=== PATIENT | female | born 1970 | race Caucasian/White ===

== ENCOUNTER 2017-06-04 17:58 | Inpatient (IN) | payer OTHER ==
[~2017-06-04] VITALS: Ht 162.6 cm; Wt 88.1 kg
[2017-06-04] MEDS ORDERED: HYDROmorphone 2 MG/ML VIAL IV ONE ×2 (18:30→20:00)
--- NOTE | 2017-06-04 18:40 | PHYS DOC ---
Past Medical History Past Medical History: Asthma, High Cholesterol Past Surgical History: Other Alcohol Use: None Drug Use: None Adult General Chief Complaint Chief Complaint: LOWEREXTREMITY INJURY HPI HPI Patient is a 46 year old F who presents with right ankle pain. Patient states she was stepping off a curb and twisted her ankle and had severe pain. Patient denies hitting her head with no loss of consciousness. Patient denied any other injuries or for some right hip pain. Review of Systems Review of Systems GEN: Denies fevers, chills, sweats HEENT: Denies blurred vision, sore throat CV: Denies chest pain RESP: Denies shortness of air, cough GI: Denies n/v/d NEURO: Denies confusion, dizziness MSK: Right ankle pain All other systems were reviewed and found to be within normal limits, except as documented in this note. Current Medications Current Medications Current Medications Medications (Trade) Dose Ordered Sig/Guera Start Time Stop Time Status Last Admin Dose Admin Hydromorphone HCl (Dilaudid) 1 mg 1X ONCE 06/04/17 20:00 06/04/17 20:01 DC 06/04/17 19:58 1 MG Allergies Allergies Allergies Coded Allergies Type Severity Reaction Last Updated Verified Sulfa (Sulfonamide Antibiotics) Allergy Intermediate 06/04/17 Yes codeine Allergy Intermediate "HIGH DOSE" 06/04/17 Yes doxycycline Allergy Intermediate 06/04/17 Yes tobramycin Allergy Intermediate 06/04/17 Yes amoxicillin Allergy Unknown 06/04/17 Yes clavulanic acid Allergy Unknown 06/04/17 Yes Physical Exam Physical Exam GEN.: Severe distress. Alert and oriented. HEENT: Head is normocephalic, atraumatic NECK: Supple. LUNGS: CTAB. HEART: RRR, S1, S2 present. Peripheral pulses intact ABDOMEN: Soft, nontender. Positive bowel sounds. EXTREMITIES: Without any cyanosis, tenderness palpation to left ankle with decreased range of motion secondary to pain, no stiff get swelling noted, positive dorsal pedis pulse palpated on the right, capillary refill to the toes less than 2 seconds NEUROLOGIC: Normal speech, normal tone PSYCHIATRIC: Normal affect, normal mood. SKIN: No ulcerations Current Patient Data Vital Signs Vital Signs Date Time Temp Pulse Resp B/P (MAP) Pulse Ox O2 Delivery O2 Flow Rate FiO2 06/04/17 19:58 18 99 Room Air 06/04/17 19:36 76 156/70 (98) 06/04/17 18:12 97.9 97.9 EKG EKG [] Radiology/Procedures Radiology/Procedures X-ray of the right hip and pelvis no obvious fracture X-ray of the right ankle no obvious fracture CT scan of the right ankle no obvious fracture[] Course & Med Decision Making Course & Med Decision Making Pertinent Labs and Imaging studies reviewed. (See chart for details) ED course: Patient is seen and examined emergency room upon arrival x-ray of the right ankle, pelvis and right hip were ordered Was updated on x-ray findings still having significant amount of pain therefore will order a CT scan of the ankle Patient was reexamined after CT scan showed no acute fracture, patient refuses to walk on it secondary to pain patient states every time she sits up she blacks out secondary to pain Will order a CT of the pelvis to rule out a hip fracture or pelvis fracture Discussed CC/HP/PMH with Dr. Gong and recommends admit MDM: After reviewing the chart, CC/HPI/PMH, physical exam, [lab results], [ radiological results], I do not believe the patient sustained an acute fracture to the ankle however the patient has a significant amount of pain out of proportion to physical exam findings and x-ray findings therefore will admit for further evaluation and management. [] Dragon Disclaimer Dragon Disclaimer This electronic medical record was generated, in whole or in part, using a voice recognition dictation system. Departure Departure Impression: Primary Impression: Intractable neuropathic pain of right lower extremity Disposition: ADMITTED INPATIENT Admitting Physician: Other (Dr. Gong) Condition: STABLE JOSE OLSON DO Jun 04, 2017 18:40
--- NOTE | 2017-06-04 22:11 | RAD ---
CT right large without contrast HISTORY: Right ankle pain status post fall Axial helical images were obtained of the right ankle without contrast and axial coronal and sagittal reconstruction was performed. FINDINGS: The visualized osseous structures appear normal. The tibiotalar relationship is normal. The fat within the sinus Tarsi is preserved. Major extensor tendons appear intact. IMPRESSION: No acute findings. PQRS Compliance Statement: One or more of the following individualized dose reduction techniques were utilized for this examination: 1. Automated exposure control 2. Adjustment of the mA and/or kV according to patient size 3. Use of iterative reconstruction technique Electronically signed by: Carlos Enrique Mike III, MD (06/04/2017 10:08 PM) [facility]
--- NOTE | 2017-06-04 23:45 | RAD ---
Three views ANKLE RIGHT 3V Clinical History: fall, rt sided hip and ankle pain, please read per ER Comparison: None. Findings: The visualized osseous structures appear normal. The tibiotalar relationship is normal. Impression: No acute findings. Electronically signed by: Carlos Enrique Mike III, MD (06/04/2017 11:42 PM) [facility]
[2017-06-05] VITALS (7 sets, daily range): BP systolic 125–140; BP diastolic 69–78
[2017-06-05] MEDS ORDERED: ONDANSETRON PF 4 MG/2 ML VIAL. IV PRN
[2017-06-05] MEDS ORDERED: ACETAMINOPHEN 325 MG TABLET. PO PRN
[2017-06-05] MEDS ORDERED: fentaNYL PF VIAL 100 MCG/2 ML VIAL IV PRN
[2017-06-05] MEDS ORDERED: HALOPERIDOL LACTATE 5 MG/ML VIAL. IVP ONE (00:15)
--- NOTE | 2017-06-05 00:28 | RAD ---
CT scan of the pelvis without contrast 06/04/2017 CLINICAL HISTORY: Pelvic pain with inability to walk. TECHNIQUE: Unenhanced, contiguous, 0.625 mm axial sections were obtained through the pelvis and both hips. 3 mm reconstructed sagittal, axial and coronal images were obtained. One or more of the following individualized dose reduction techniques were utilized for this study: 1. Automated exposure control. 2. Adjustment of the mA and/or kV according to patient size. 3. Use of iterative reconstruction technique. FINDINGS: Marked rotation of the right leg and the level of the right hip is seen which could reflect subluxation of the right hip joint. Clinical correlation is recommended. No pelvic bone fracture is seen. No fracture or dislocation of either hip is noted. The urinary bladder is distended with urine. No Adnexal mass is seen. No free fluid is noted. No pelvic hematoma is seen. Degenerative changes are seen involving the facet joints of the mid and lower lumbar spine. IMPRESSION: Marked rotation of the right leg at the level of the right hip is seen which could reflect subluxation of the right hip joint. Clinical correlation is recommended. No fracture or kimberli dislocation is seen. Electronically signed by: Fabrizio Sebastian MD (06/05/2017 12:25 AM) [facility]
[2017-06-05] MEDS ORDERED: NORE1TAB76 PO (01:44)
[2017-06-05] MEDS ORDERED: FEXO1TAB31 PO (01:44)
[2017-06-05] MEDS ORDERED: RANI300T3 PO (01:44)
[2017-06-05] MEDS ORDERED: ATOR20TA58 PO (01:44)
[2017-06-05] MEDS ORDERED: PSEU120T9 PO (01:44)
[2017-06-05] MEDS ORDERED: FLUT9.9S NS (01:44)
[2017-06-05] MEDS ORDERED: PROAIR HFA8.5 GM INH (01:44)
[2017-06-05] MEDS ORDERED: CETI10TA22 PO (01:44)
[2017-06-05] MEDS ORDERED: OMEP20TA63 PO (01:44)
[2017-06-05] MEDS ORDERED: PREN1TAB58 PO (01:44)
[2017-06-05 04:29] LABS: BASO # 0.1 x10^3/uL (0.0-0.2); BASO % 1 % (0-3); EOS % 1 % (0-3); HEMATOCRIT 42.6 % (36.0-47.0); LYMPH # 3.1 x10^3/uL (1.0-4.8); LYMPH % 20 % (24-48); MEAN CORPUSCULAR HEMOGLOBIN 31 pg (25-35); MEAN CORPUSCULAR HGB CONC 33 g/dL (31-37); MEAN CORPUSCULAR VOLUME 93 fL (79-100); MONO % 7 % (0-9); NEUT % 72 % (31-73); PLATELET COUNT 505 x10^3/uL (140-400); RED BLOOD COUNT 4.58 x10^6/uL (3.50-5.40); RED CELL DISTRIBUTION WIDTH 13.4 % (11.5-14.5); WHITE BLOOD COUNT 15.8 x10^3/uL (4.0-11.0)
[2017-06-05 04:48] LABS: CALCIUM 8.8 mg/dL (8.5-10.1); CREATININE 0.6 mg/dL (0.6-1.0); GFR 106.7; POTASSIUM 3.9 mmol/L (3.5-5.1)
--- NOTE | 2017-06-05 07:35 | RAD ---
Indication: Trauma, fall on right side. Technique: 2 views of the right hip and an AP view the pelvis are submitted for review. No comparison is available. Findings: There is no fracture or dislocation. There is no joint space narrowing. Bony pelvis is intact. Included bowel gas pattern is nonobstructive. Impression: Negative for fracture.
[2017-06-05] MEDS ORDERED: diazePAM 5 MG TABLET PO ONE ×2 (14:00→18:30)
--- NOTE | 2017-06-05 14:59 | PDOC2 ---
CONSULT Date of Consult Date of Consult DATE: 06/05/17 TIME: 13:30 Reason for Consult Reason for Consult: right hip and ankle pain Referring Physician Referring Physician: Harpreet Identification/Chief Complaint Chief Complaint right hip, knee, and ankle pain Problems: Source Source: Chart review, Patient History of Present Illness Reason for Visit: The patient is a 46 year old female patient with intractable right hip, knee, and ankle pain after falling. She was walking out of the pharmacy at [facility] yesterday evening when she rolled her ankle stepping off the curb. She states her ankle went one way, her knee went one way, and her hip went the other causing her to fall. Since the fall she has not been able to bear any weight on the right lower extremity due to pain. Attempted motion of the hip and ankle aggravate the pain. Holding the leg externally rotated with the knee flexed feels best. She has a history of fibromyalgia for which she takes Tylenol. She states she cannot take NSAIDs due to side effects. She states she has been taking omeprazole and zantac for acid reflux and nausea when eating, but missed her recent appointment with her councilperson. Past Medical History Cardiovascular: Hyperlipidemia Pulmonary: Asthma, Other (TG) GI: GERD Musculoskeletal: Other (fibromyalgia ) ENT: Other (seasonal allergies) Past Surgical History Past Surgical History: Other (splenectomy ) Family History Family History: Cancer, Diabetes, Heart Disease Social History No ALCOHOL: none Drugs: None Lives: with Family Current Problem List Problem List Problems Medical Problems: (1) Intractable neuropathic pain of right lower extremity Status: Acute Current Medications Current Medications Current Medications Hydromorphone HCl (Dilaudid) 1 mg 1X ONCE IV Last administered on 06/04/17 18:36; Start 06/04/17 at 18:30; Stop 06/04/17 at 18:32; Status DC Hydromorphone HCl (Dilaudid) 1 mg 1X ONCE IV Last administered on 06/04/17 19:58; Start 06/04/17 at 20:00; Stop 06/04/17 at 20:01; Status DC Haloperidol Lactate (Haldol) 5 mg 1X ONCE IVP Last administered on 06/05/17 00:39; Start 06/05/17 at 00:15; Stop 06/05/17 at 00:16; Status DC Ondansetron HCl (Zofran) 4 mg PRN Q8HRS PRN IV NAUSEA/VOMITING; Start at 00:00; Stop 06/05/17 at 23:59 Fentanyl Citrate (Fentanyl 2ml Vial) 50 mcg PRN Q1HR PRN IV PAIN; Start at 00:00; Stop 06/05/17 at 23:59 Acetaminophen (Tylenol) 650 mg PRN Q4HRS PRN PO FEVER Last administered on t 10:02; Start 06/05/17 at 00:00; Stop 06/05/17 at 23:59 Diazepam (Valium) 5 mg 1X ONCE PO ; Start 06/05/17 at 14:00; Stop 06/05/17 at 14:01; Status DC Active Scripts Active Reported Vitamins ( Vits W-Ca,Fe,Fa(<1MG)) 1 Each Tablet 1 Tab PO DAILY Sudafed 12-Hour (Pseudoephedrine Hcl) 120 Mg Tablet.er 1 Tab PO BID Atorvastatin Calcium 20 Mg Tablet 1 Tab PO DAILY Ortho-Novum (Norethindrone-Ethinyl Estrad) 1 Each Tablet 1 Tab PO DAILY Flonase Allergy Relief (Fluticasone Propionate) 9.9 Ml Kincaid.susp 2 Sprays NS DAILY Proair Hfa Inhaler (Albuterol Sulfate) 8.5 Gm Hfa.aer.ad 1 Puff INH PRN Q4HRS PRN Prilosec Otc (Omeprazole Magnesium) 20 Mg Tablet.dr 1 Tab PO DAILY Zantac (Ranitidine Hcl) 300 Mg Tablet 1 Tab PO QHS Zyrtec (Cetirizine Hcl) 10 Mg Tablet 10 Mg PO HS Jayshree-D 24 Hour Tablet (Fexofenadine/Pseudoephedrine) 1 Each Tab.er.24h 1 Tab PO DAILY Allergies Allergies: Coded Allergies: Sulfa (Sulfonamide Antibiotics) (Verified Allergy, Intermediate, 06/04/17) codeine (Verified Allergy, Intermediate, "HIGH DOSE", 06/04/17) doxycycline (Verified Allergy, Intermediate, 06/04/17) tobramycin (Verified Allergy, Intermediate, 06/04/17) amoxicillin (Verified Allergy, Unknown, 06/04/17) clavulanic acid (Verified Allergy, Unknown, 06/04/17) Physical Exam General: Alert, Oriented X3, Cooperative, No acute distress HEENT: Atraumatic, EOMI Lungs: Normal air movement Heart: Regular rate Abdomen: Soft Extremities: No clubbing, No cyanosis, No edema, Normal pulses Skin: No rashes, No breakdown, No significant lesion Neuro: Normal speech, Sensation intact Psych/Mental Status: Mental status NL, Mood NL MUSCULOSKELETAL: Other (Lying in bed with pillow under knee. She is holding the right leg in a splinted position, externally rotated with the knee flexed. The right hip is tender to palpation. Attempted motion of the hip is painful. Tenderness to palpation generally about the knee, but specifically at the proximal fibula and along the medial joint line. Attempted active and passive motion of the knee is painful. Only shows active motion from 30-60 degrees due to pain. Calf soft and nontender. There is tenderenss to palpation of the ATFL, PTFL, and CFL. Mild tenderness medially. Range of motion of ankle diminished due to pain. Inversion is especially painful. Able to wiggle toes. Dorsalis pedis pulse intact and regular. Light touch sensation intact at the toes. ) Vitals VITALS Vital Signs Date Time Temp Pulse Resp B/P (MAP) Pulse Ox O2 Delivery O2 Flow Rate FiO2 06/05/17 10:51 98.4 106 16 131/73 (92) 95 Room Air 98.4 Labs Labs Laboratory Tests Test 06/05/17 03:30 White Blood Count 15.8 x10^3/uL (4.0-11.0) Red Blood Count 4.58 x10^6/uL (3.50-5.40) Hemoglobin 14.0 g/dL (12.0-15.5) Hematocrit 42.6 % (36.0-47.0) Mean Corpuscular Volume 93 fL (79-100) Mean Corpuscular Hemoglobin 31 pg (25-35) Mean Corpuscular Hemoglobin Concent 33 g/dL (31-37) Red Cell Distribution Width 13.4 % (11.5-14.5) Platelet Count 505 x10^3/uL (140-400) Neutrophils (%) (Auto) 72 % (31-73) Lymphocytes (%) (Auto) 20 % (24-48) Monocytes (%) (Auto) 7 % (0-9) Eosinophils (%) (Auto) 1 % (0-3) Basophils (%) (Auto) 1 % (0-3) Neutrophils # (Auto) 11.3 x10^3uL (1.8-7.7) Lymphocytes # (Auto) 3.1 x10^3/uL (1.0-4.8) Monocytes # (Auto) 1.2 x10^3/uL (0.0-1.1) Eosinophils # (Auto) 0.1 x10^3/uL (0.0-0.7) Basophils # (Auto) 0.1 x10^3/uL (0.0-0.2) Sodium Level 140 mmol/L (136-145) Potassium Level 3.9 mmol/L (3.5-5.1) Chloride Level 102 mmol/L (98-107) Carbon Dioxide Level 24 mmol/L (21-32) Anion Gap 14 (6-14) Blood Urea Nitrogen 10 mg/dL (7-20) Creatinine 0.6 mg/dL (0.6-1.0) Estimated GFR (Cockcroft-Gault) 106.7 Glucose Level 113 mg/dL (70-99) Calcium Level 8.8 mg/dL (8.5-10.1) Laboratory Tests Test 06/05/17 03:30 White Blood Count 15.8 x10^3/uL (4.0-11.0) Red Blood Count 4.58 x10^6/uL (3.50-5.40) Hemoglobin 14.0 g/dL (12.0-15.5) Hematocrit 42.6 % (36.0-47.0) Mean Corpuscular Volume 93 fL (79-100) Mean Corpuscular Hemoglobin 31 pg (25-35) Mean Corpuscular Hemoglobin Concent 33 g/dL (31-37) Red Cell Distribution Width 13.4 % (11.5-14.5) Platelet Count 505 x10^3/uL (140-400) Neutrophils (%) (Auto) 72 % (31-73) Lymphocytes (%) (Auto) 20 % (24-48) Monocytes (%) (Auto) 7 % (0-9) Eosinophils (%) (Auto) 1 % (0-3) Basophils (%) (Auto) 1 % (0-3) Neutrophils # (Auto) 11.3 x10^3uL (1.8-7.7) Lymphocytes # (Auto) 3.1 x10^3/uL (1.0-4.8) Monocytes # (Auto) 1.2 x10^3/uL (0.0-1.1) Eosinophils # (Auto) 0.1 x10^3/uL (0.0-0.7) Basophils # (Auto) 0.1 x10^3/uL (0.0-0.2) Sodium Level 140 mmol/L (136-145) Potassium Level 3.9 mmol/L (3.5-5.1) Chloride Level 102 mmol/L (98-107) Carbon Dioxide Level 24 mmol/L (21-32) Anion Gap 14 (6-14) Blood Urea Nitrogen 10 mg/dL (7-20) Creatinine 0.6 mg/dL (0.6-1.0) Estimated GFR (Cockcroft-Gault) 106.7 Glucose Level 113 mg/dL (70-99) Calcium Level 8.8 mg/dL (8.5-10.1) Images Images X-rays of the hip and ankle show no fracture, dislocation, or acute bony abnormality. CT of the ankle is negative for fracture as well. CT of the pelvis was reviewed, there is a possible lucency of the femoral neck seen on series 2 image 74 and 75, suspicious for possible occult femoral neck fracture. Assessment/Plan Assessment/Plan Right hip, knee, and ankle pain after fall. The patient is a 46 year old female with intractable right hip, knee, and ankle pain after a fall. She is not able to bear weight on the right lower extremity due to pain. I will order a pelvis MRI to rule out occult femoral neck fracture. She is claustrophobic, so Valium was ordered to give 30 minutes prior to MRI. I recommended a CAM walker for the right ankle. She is having quite a bit of knee pain so I will order right knee x-rays as well. ARCADIO GOMEZ Jun 05, 2017 14:59
--- NOTE | 2017-06-05 15:30 | RAD ---
Right knee, 2 views, 06/05/2017: History: Fall, knee pain There is a nondisplaced fracture of the proximal fibular shaft. No additional knee fracture or dislocation is seen. The knee joint spaces are well preserved. No joint effusion is evident. IMPRESSION: Nondisplaced fracture of the proximal right fibula.
[2017-06-05] MEDS ORDERED: NON FORMULARY ITEM (Albuterol Sulfate (Proair Hfa Inhaler) 1 PUFF) INH PRN (16:15)
[2017-06-05] MEDS ORDERED: ALBUTEROL SULFATE 2.5 MG/3 ML NEBU. NEB PRN (16:15)
--- NOTE | 2017-06-05 16:51 | HP ---
ADMIT DATE: 06/04/2017 CHIEF COMPLAINT: Right ankle pain. HISTORY OF PRESENT ILLNESS: The patient is a 46-year-old obese woman with minor medical problems who had stepped off a curb wrong and twisted her ankle. She had excruciating pain, being unable to stand on her foot or weight bear. The entire leg hurts. She presented to the Emergency Room and was imaged with plain films of the hip and ankle, not showing any fracture, dislocation or acute bony abnormality. CT of the ankle was obtained as well, which was negative. CT of the pelvis was reviewed and has possible lucency of the femoral neck suspicious for a possible occult femoral neck fracture. Of note, hip actually not as painful as her foot. Whenever she moves her leg, main pain location is her ankle. She is now admitted for further workup and orthopedic consult. PAST MEDICAL HISTORY: Asthma, environmental allergies, hypertriglyceridemia. FAMILY HISTORY: Positive for heart disease in both parents. SOCIAL HISTORY: No toxic habits. Lives with family. ALLERGIES: SULFA, AMOXICILLIN, DOXYCYCLINE, TOBRAMYCIN, CODEINE. MEDICATIONS: MAR reconciled with home medications. REVIEW OF SYSTEMS: Positive only for excruciating pain in her leg, especially ankle. Rest of organ system review is benign with the exception of stuffy nose and sinusitis with chronic allergies. PHYSICAL EXAMINATION: VITAL SIGNS: From today show a blood pressure of 125/69, heart rate of 105, respiratory rate at 16. She is afebrile. GENERAL: This is an obese 46-year-old woman, alert and oriented, in no acute distress. HEENT: Shows no scleral icterus. NECK: Supple. LUNGS: Clear. HEART: Regular rate and rhythm. ABDOMEN: Has positive bowel sounds, soft, nontender. EXTREMITIES: Show no edema, no erythema. The ankles are symmetrical. No bruising is noted. She has excruciating pain with movement. LABORATORY DATA: CBC with a WBC of 15.8, hemoglobin 14, platelets of 505. Chemistries with a BUN and creatinine of 10 and 0.6, normal electrolytes. IMAGING STUDIES: Plain films and CTs as per HPI. ASSESSMENT AND PLAN: The patient is a 46-year-old woman with allergies/asthma, gastroesophageal reflux disease who presents with what appears to be ankle sprain. Pain is incongruent with findings. We will have Orthopedic surgery consult. Pain medications in the meantime, may benefit from ice and nonsteroidal anti-inflammatories. We will continue all her other home medications for gastroesophageal reflux disease and asthma. GLENN KARIMI MD DR: UR/nts JOB#: [id number] / [id number] JAYLENE Singh MD MTDD
[2017-06-05] MEDS: PSEUDOEPHEDRINE ER 120 MG TABLET.ER. PO SCH (22:16)
[2017-06-05] MEDS: CETIRIZINE HCL 10 MG TABLET. PO SCH (22:16)
[2017-06-05] MEDS: FAMOTIDINE 20 MG TABLET. PO SCH (22:16)
[2017-06-06 03:00] VITALS: BP 108/70
[2017-06-06] MEDS ORDERED: ACETAMINOPHEN 325 MG TABLET. PO PRN (03:00)
[2017-06-06 07:00] VITALS: BP 139/78
[2017-06-06] MEDS ORDERED: NORETHINDRONE ETHINYL ESTRAD PO SCH (09:00)
[2017-06-06] MEDS: PRENATAL MULTIVITAMIN TABLET. PO SCH (09:00)
[2017-06-06] MEDS ORDERED: NON FORMULARY ITEM (Fexofenadine/Pseudoephedrine (Allegra-D 24 Hour Tablet) 1 TAB) PO SCH (09:00)
[2017-06-06] MEDS: ATORVASTATIN CALCIUM 20 MG TABLET PO SCH (09:00)
--- NOTE | 2017-06-06 10:16 | PDOC ---
PROGRESS NOTES Chief Complaint Chief Complaint acute right leg pain, pain in hip and knee and ankle she reports tingling in her feet to me today, possible radiculupathy obesity, BMI 33 gastroesophageal reflux disease allergies, asthma History of Present Illness History of Present Illness she had MRI hip, looking for small fx, results pending, CT OK, knee xray OK right leg pain to foot with toe tingling, may be radiculopathy, may need MRI lumber spine, she has terrible claustrophobia, and is unsure if she can tolerate another MRI consult neuro surg, to follow, eval cont pain meds, try toradol, Vitals Vitals Vital Signs Date Time Temp Pulse Resp B/P (MAP) Pulse Ox O2 Delivery O2 Flow Rate FiO2 06/06/17 07:00 98.4 98 16 139/78 (98) 94 Room Air 98.4 Physical Exam General: Alert, Oriented X3, Cooperative, mild distress Heart: Regular rate, Normal S1, No murmurs Lungs: Clear Abdomen: Soft Extremities: No clubbing, No cyanosis, No edema, Normal pulses Skin: No rashes, No breakdown, No significant lesion Review of Systems Review of Systems pain, 01/29 cannot walk slept OK no n./.v/d Assessment and Plan Assessmemt and Plan Problems Medical Problems: (1) Intractable neuropathic pain of right lower extremity Status: Acute Problems: Comment Review of Relevant I have reviewed the following items dalila (where applicable) has been applied. Labs Laboratory Tests Test 06/05/17 03:30 White Blood Count 15.8 x10^3/uL (4.0-11.0) Red Blood Count 4.58 x10^6/uL (3.50-5.40) Hemoglobin 14.0 g/dL (12.0-15.5) Hematocrit 42.6 % (36.0-47.0) Mean Corpuscular Volume 93 fL (79-100) Mean Corpuscular Hemoglobin 31 pg (25-35) Mean Corpuscular Hemoglobin Concent 33 g/dL (31-37) Red Cell Distribution Width 13.4 % (11.5-14.5) Platelet Count 505 x10^3/uL (140-400) Neutrophils (%) (Auto) 72 % (31-73) Lymphocytes (%) (Auto) 20 % (24-48) Monocytes (%) (Auto) 7 % (0-9) Eosinophils (%) (Auto) 1 % (0-3) Basophils (%) (Auto) 1 % (0-3) Neutrophils # (Auto) 11.3 x10^3uL (1.8-7.7) Lymphocytes # (Auto) 3.1 x10^3/uL (1.0-4.8) Monocytes # (Auto) 1.2 x10^3/uL (0.0-1.1) Eosinophils # (Auto) 0.1 x10^3/uL (0.0-0.7) Basophils # (Auto) 0.1 x10^3/uL (0.0-0.2) Sodium Level 140 mmol/L (136-145) Potassium Level 3.9 mmol/L (3.5-5.1) Chloride Level 102 mmol/L (98-107) Carbon Dioxide Level 24 mmol/L (21-32) Anion Gap 14 (6-14) Blood Urea Nitrogen 10 mg/dL (7-20) Creatinine 0.6 mg/dL (0.6-1.0) Estimated GFR (Cockcroft-Gault) 106.7 Glucose Level 113 mg/dL (70-99) Calcium Level 8.8 mg/dL (8.5-10.1) Medications Current Medications Hydromorphone HCl (Dilaudid) 1 mg 1X ONCE IV Last administered on 06/04/17 18:36; Start 06/04/17 at 18:30; Stop 06/04/17 at 18:32; Status DC Hydromorphone HCl (Dilaudid) 1 mg 1X ONCE IV Last administered on 06/04/17 19:58; Start 06/04/17 at 20:00; Stop 06/04/17 at 20:01; Status DC Haloperidol Lactate (Haldol) 5 mg 1X ONCE IVP Last administered on 06/05/17 00:39; Start 06/05/17 at 00:15; Stop 06/05/17 at 00:16; Status DC Ondansetron HCl (Zofran) 4 mg PRN Q8HRS PRN IV NAUSEA/VOMITING; Start at 00:00; Stop 06/05/17 at 23:59; Status DC Fentanyl Citrate (Fentanyl 2ml Vial) 50 mcg PRN Q1HR PRN IV PAIN Last administered on 06/05/17 20:44; Start 06/05/17 at 00:00; Stop 06/05/17 at 23 :59; Status DC Acetaminophen (Tylenol) 650 mg PRN Q4HRS PRN PO FEVER Last administered on 10:02; Start 06/05/17 at 00:00; Stop 06/05/17 at 23:59; Status DC Diazepam (Valium) 5 mg 1X ONCE PO Last administered on 06/05/17 18:24; Start 06/05/17 at 14:00; Stop 06/05/17 at 14:01; Status DC Atorvastatin Calcium (Lipitor) 20 mg DAILY PO ; Start 06/06/17 at 09:00 Cetirizine HCl (ZyrTEC) 10 mg HS PO Last administered on 06/05/17 22:16; Start 06/05/17 at 21:00 Pseudoephedrine HCl (Sudafed 12-Hour) 120 mg BID PO Last administered on 22:16; Start 06/05/17 at 21:00 Non-Formulary Medication 1 puff PRN Q4HRS PRN INH SHORTNESS OF BREATH; Start 06/05/17 at 16:15; Status UNV Non-Formulary Medication 1 tab DAILY PO ; Start 06/06/17 at 09:00; Status UNV Fluticasone Propionate (Flonase) 2 spray DAILY NS ; Start 06/06/17 at 09:00 Non-Formulary Medication 1 tab DAILY PO ; Start 06/06/17 at 09:00; Status UNV Pantoprazole Sodium (Protonix) 40 mg DAILYAC PO ; Start 06/06/17 at 07:30 Multivit/ Folic Acid/Iron (Multivitamin ) 1 tab DAILY PO ; Start 06/06/17 at 09:00 Famotidine (Pepcid) 20 mg QHS PO Last administered on 06/05/17 22:16; Start 06/05/17 at 21:00 Albuterol Sulfate (Ventolin Neb Soln) 2.5 mg PRN Q6HRS PRN NEB SHORTNESS OF BREATH; Start 06/05/17 at 16:15 Diazepam (Valium) 5 mg 1X ONCE PO Last administered on 12/15/17at 18:25; Start 06/05/17 at 18:30; Stop 06/05/17 at 18:31; Status DC Acetaminophen (Tylenol) 650 mg PRN Q6HRS PRN PO HEADACHE; Start 06/06/17 at 03 :00 Active Scripts Active Reported Vitamins ( Vits W-Ca,Fe,Fa(<1MG)) 1 Each Tablet 1 Tab PO DAILY Sudafed 12-Hour (Pseudoephedrine Hcl) 120 Mg Tablet.er 1 Tab PO BID Atorvastatin Calcium 20 Mg Tablet 1 Tab PO DAILY Ortho-Novum (Norethindrone-Ethinyl Estrad) 1 Each Tablet 1 Tab PO DAILY Flonase Allergy Relief (Fluticasone Propionate) 9.9 Ml [place].susp 2 Sprays NS DAILY Proair Hfa Inhaler (Albuterol Sulfate) 8.5 Gm Hfa.aer.ad 1 Puff INH PRN Q4HRS PRN Prilosec Otc (Omeprazole Magnesium) 20 Mg Tablet.dr 1 Tab PO DAILY Zantac (Ranitidine Hcl) 300 Mg Tablet 1 Tab PO QHS Zyrtec (Cetirizine Hcl) 10 Mg Tablet 10 Mg PO HS Jayshree-D 24 Hour Tablet (Fexofenadine/Pseudoephedrine) 1 Each Tab.er.24h 1 Tab PO DAILY Vitals/I & O Vital Sign - Last 24 Hours 06/05/17 06/05/17 06/05/17 06/05/17 10:51 15:00 19:00 20:00 Temp 98.4 98.1 98.5 98.4 98.1 98.5 Pulse 106 105 86 Resp 16 18 B/P (MAP) 131/73 (92) 125/69 (87) 131/70 (90) Pulse Ox 95 97 98 O2 Delivery Room Air Room Air Room Air Room Air 06/05/17 06/05/17 06/05/17 06/05/17 20:44 21:14 22:22 23:00 Temp 98.0 98.0 Pulse 92 Resp 20 20 18 B/P (MAP) 139/70 (93) Pulse Ox 98 96 98 O2 Delivery Room Air Room Air Room Air Room Air 06/06/17 06/06/17 03:00 07:00 Temp 98.9 98.4 98.9 98.4 Pulse 110 98 Resp 18 16 B/P (MAP) 108/70 (83) 139/78 (98) Pulse Ox 98 94 O2 Delivery Room Air Room Air Intake and Output 06/05/17 06/05/17 06/06/17 15:00 23:00 07:00 Intake Total 400 ml 550 ml Output Total 1200 ml Balance -800 ml 550 ml MARCUS CHAVEZ MD Jun 06, 2017 10:16
[2017-06-06 11:00] VITALS: BP 135/63
[2017-06-06] MEDS: PSEUDOEPHEDRINE ER 120 MG TABLET.ER. PO SCH ×2 (11:43→22:28)
[2017-06-06] MEDS: FLUTICASONE 50MCG/NASAL SPRAY 16GM BOTTLE. NS SCH (11:43)
[2017-06-06] MEDS: PANTOPRAZOLE 40 MG TABLET.DR. PO SCH (11:43)
[2017-06-06] MEDS: fentaNYL PF VIAL 100 MCG/2 ML VIAL IV PRN ×2 (11:54→22:28)
[2017-06-06 15:00] VITALS: BP 121/83
--- NOTE | 2017-06-06 16:40 | PDOC ---
ORTHO PROGRESS NOTES Subjective the patient reports pain in her back and right side due to the MRI. imaging negative except for a proximal third fibula fracture. will order cam walker boot for her right leg. she is weight-bearing as tolerated on the right side. can follow-up with her primary care doctor or in my office in 3 weeks for followup. Vitals Vital Signs Date Time Temp Pulse Resp B/P (MAP) Pulse Ox O2 Delivery O2 Flow Rate FiO2 06/06/17 15:00 98.5 99 16 121/83 (96) 95 Room Air 98.5 Labs Laboratory Tests Test 06/05/17 03:30 White Blood Count 15.8 x10^3/uL (4.0-11.0) Red Blood Count 4.58 x10^6/uL (3.50-5.40) Hemoglobin 14.0 g/dL (12.0-15.5) Hematocrit 42.6 % (36.0-47.0) Mean Corpuscular Volume 93 fL (79-100) Mean Corpuscular Hemoglobin 31 pg (25-35) Mean Corpuscular Hemoglobin Concent 33 g/dL (31-37) Red Cell Distribution Width 13.4 % (11.5-14.5) Platelet Count 505 x10^3/uL (140-400) Neutrophils (%) (Auto) 72 % (31-73) Lymphocytes (%) (Auto) 20 % (24-48) Monocytes (%) (Auto) 7 % (0-9) Eosinophils (%) (Auto) 1 % (0-3) Basophils (%) (Auto) 1 % (0-3) Neutrophils # (Auto) 11.3 x10^3uL (1.8-7.7) Lymphocytes # (Auto) 3.1 x10^3/uL (1.0-4.8) Monocytes # (Auto) 1.2 x10^3/uL (0.0-1.1) Eosinophils # (Auto) 0.1 x10^3/uL (0.0-0.7) Basophils # (Auto) 0.1 x10^3/uL (0.0-0.2) Sodium Level 140 mmol/L (136-145) Potassium Level 3.9 mmol/L (3.5-5.1) Chloride Level 102 mmol/L (98-107) Carbon Dioxide Level 24 mmol/L (21-32) Anion Gap 14 (6-14) Blood Urea Nitrogen 10 mg/dL (7-20) Creatinine 0.6 mg/dL (0.6-1.0) Estimated GFR (Cockcroft-Gault) 106.7 Glucose Level 113 mg/dL (70-99) Calcium Level 8.8 mg/dL (8.5-10.1) Notes right lower extremity no swelling at the ankle. no ecchymosis. no tenderness to palpation over the proximal fibula. tenderness to palpation over her anterolateral ankle ligaments. YOANNA NEUMANN MD Jun 06, 2017 16:40
[2017-06-06] MEDS: oxyCODONE/APAP 5/325 1 TAB TABLET PO PRN (18:27)
[2017-06-06 19:00] VITALS: BP 120/66
[2017-06-06] MEDS: CETIRIZINE HCL 10 MG TABLET. PO SCH (22:28)
[2017-06-06] MEDS: FAMOTIDINE 20 MG TABLET. PO SCH (22:28)
[2017-06-06 23:35] VITALS: BP 112/80
[2017-06-07] MEDS: oxyCODONE/APAP 5/325 1 TAB TABLET PO PRN ×4 (00:52→21:05)
[2017-06-07 03:00] VITALS: BP 105/57
--- NOTE | 2017-06-07 03:34 | RAD ---
EXAM: MRI pelvis/right hip without contrast. HISTORY: Right hip pain after a fall. Concern for occult fracture. TECHNIQUE: MRI of the pelvis and right hip was performed without intravenous contrast.. COMPARISON: CT June 04, 2017. FINDINGS: The right leg is in external rotation, limiting evaluation somewhat. There is no evidence of fracture within the right proximal femur or throughout the visualized right hemipelvis. There is no surrounding muscular strain or hematoma. The gluteal and iliopsoas tendons are intact. There is mild greater trochanteric and hamstring bursitis. The pubic symphysis is unremarkable. The right sacroiliac joint also appears normal. The joint space is of the right hip are maintained. There is no acetabular retroversion. There is an undersurface tear of the anterior acetabular labrum that likely extends to the superior labrum. The ligamentum teres appears intact. Limited images of the pelvic organs reveal no abnormality. IMPRESSION: 1. No fracture. 2. Nondisplaced undersurface tear of the anterior and superior acetabular labrum. 3. Mild greater trochanteric and hamstring bursitis. 4. Limitations from positioning as above. Electronically signed by: Sam Coffey MD (06/07/2017 3:31 AM) [facility]
[2017-06-07] MEDS: fentaNYL PF VIAL 100 MCG/2 ML VIAL IV PRN ×2 (04:41→23:19)
[2017-06-07 07:00] VITALS: BP 141/69
[2017-06-07] MEDS: PSEUDOEPHEDRINE ER 120 MG TABLET.ER. PO SCH ×2 (08:49→21:05)
[2017-06-07] MEDS: PANTOPRAZOLE 40 MG TABLET.DR. PO SCH (08:49)
[2017-06-07] MEDS: FLUTICASONE 50MCG/NASAL SPRAY 16GM BOTTLE. NS SCH (08:49)
[2017-06-07] MEDS: PRENATAL MULTIVITAMIN TABLET. PO SCH ×2 (08:51→21:05)
[2017-06-07] MEDS: ATORVASTATIN CALCIUM 20 MG TABLET PO SCH ×2 (08:51→21:06)
--- NOTE | 2017-06-07 11:19 | PDOC2 ---
CONSULT Date of Consult Date of Consult DATE: 06/07/17 TIME: 11:14 Reason for Consult Reason for Consult: right leg pain, evaluate lumbar spine History of Present Illness Reason for Visit: 46F who stepped off a curb and twisted her ankle. Now with right ankle pain and right knee pain. Also reports shooting pain from the right hip/buttock region extending to the foot. There is limited ROM due to local ankle and knee pain. Denies bowel/bladder changes. Past Medical History Cardiovascular: Hyperlipidemia Pulmonary: Asthma, Other (TG) GI: GERD Musculoskeletal: Other (fibromyalgia ) ENT: Other (seasonal allergies) Past Surgical History Past Surgical History: Other (splenectomy ) Family History Family History: Cancer, Diabetes, Heart Disease Social History No ALCOHOL: none Drugs: None Lives: with Family Current Problem List Problem List Problems Medical Problems: (1) Intractable neuropathic pain of right lower extremity Status: Acute Current Medications Current Medications Current Medications Hydromorphone HCl (Dilaudid) 1 mg 1X ONCE IV Last administered on 06/04/17 18:36; Start 06/04/17 at 18:30; Stop 06/04/17 at 18:32; Status DC Hydromorphone HCl (Dilaudid) 1 mg 1X ONCE IV Last administered on 06/04/17 19:58; Start 06/04/17 at 20:00; Stop 06/04/17 at 20:01; Status DC Haloperidol Lactate (Haldol) 5 mg 1X ONCE IVP Last administered on 06/05/17 00:39; Start 06/05/17 at 00:15; Stop 06/05/17 at 00:16; Status DC Ondansetron HCl (Zofran) 4 mg PRN Q8HRS PRN IV NAUSEA/VOMITING; Start at 00:00; Stop 06/05/17 at 23:59; Status DC Fentanyl Citrate (Fentanyl 2ml Vial) 50 mcg PRN Q1HR PRN IV PAIN Last administered on 06/05/17 20:44; Start 06/05/17 at 00:00; Stop 06/05/17 at 23 :59; Status DC Acetaminophen (Tylenol) 650 mg PRN Q4HRS PRN PO FEVER Last administered on 10:02; Start 06/05/17 at 00:00; Stop 06/05/17 at 23:59; Status DC Diazepam (Valium) 5 mg 1X ONCE PO Last administered on 06/05/17 18:24; Start 06/05/17 at 14:00; Stop 06/05/17 at 14:01; Status DC Atorvastatin Calcium (Lipitor) 20 mg DAILY PO ; Start 06/06/17 at 09:00; Stop 06/07/17 at 08:54; Status DC Cetirizine HCl (ZyrTEC) 10 mg HS PO Last administered on 06/06/17 22:28; Start 06/05/17 at 21:00 Pseudoephedrine HCl (Sudafed 12-Hour) 120 mg BID PO Last administered on 08:49; Start 06/05/17 at 21:00 Non-Formulary Medication 1 puff PRN Q4HRS PRN INH SHORTNESS OF BREATH; Start 06/05/17 at 16:15; Status UNV Non-Formulary Medication 1 tab DAILY PO ; Start 06/06/17 at 09:00; Status UNV Fluticasone Propionate (Flonase) 2 spray DAILY NS Last administered on 08:49; Start 06/06/17 at 09:00 Non-Formulary Medication 1 tab DAILY PO ; Start 06/06/17 at 09:00; Status UNV Pantoprazole Sodium (Protonix) 40 mg DAILYAC PO Last administered on 08:49; Start 06/06/17 at 07:30 Multivit/ Folic Acid/Iron (Multivitamin ) 1 tab DAILY PO ; Start 06/06/17 at 09:00; Stop 06/07/17 at 08:54; Status DC Famotidine (Pepcid) 20 mg QHS PO Last administered on 06/06/17 22:28; Start 06/05/17 at 21:00 Albuterol Sulfate (Ventolin Neb Soln) 2.5 mg PRN Q6HRS PRN NEB SHORTNESS OF BREATH; Start 06/05/17 at 16:15 Diazepam (Valium) 5 mg 1X ONCE PO Last administered on 06/05/17 18:25; Start 06/05/17 at 18:30; Stop 06/05/17 at 18:31; Status DC Acetaminophen (Tylenol) 650 mg PRN Q6HRS PRN PO HEADACHE; Start 06/06/17 at 03 :00 Oxycodone/ Acetaminophen (Percocet 5/325) 1 tab PRN Q4HRS PRN PO PAIN Last administered on 06/07/17t 10:39; Start 06/06/17 at 10:15 Fentanyl Citrate (Fentanyl 2ml Vial) 50 mcg PRN Q2HR PRN IV PAIN Last administered on 06/07/17t 04:41; Start 06/06/17 at 10:15 Ketorolac Tromethamine (Toradol) 15 mg PRN Q6HRS PRN IV PAIN; Start 06/06/17 at 10:15; Stop 06/11/17 at 10:14 Atorvastatin Calcium (Lipitor) 20 mg QHS PO ; Start 06/07/17 at 21:00 Multivit/ Folic Acid/Iron (Multivitamin ) 1 tab QHS PO ; Start 06/07/17 at 21:00 Active Scripts Active Reported Vitamins ( Vits W-Ca,Fe,Fa(<1MG)) 1 Each Tablet 1 Tab PO DAILY Sudafed 12-Hour (Pseudoephedrine Hcl) 120 Mg Tablet.er 1 Tab PO BID Atorvastatin Calcium 20 Mg Tablet 1 Tab PO DAILY Ortho-Novum (Norethindrone-Ethinyl Estrad) 1 Each Tablet 1 Tab PO DAILY Flonase Allergy Relief (Fluticasone Propionate) 9.9 Ml [place].susp 2 Sprays NS DAILY Proair Hfa Inhaler (Albuterol Sulfate) 8.5 Gm Hfa.aer.ad 1 Puff INH PRN Q4HRS PRN Prilosec Otc (Omeprazole Magnesium) 20 Mg Tablet.dr 1 Tab PO DAILY Zantac (Ranitidine Hcl) 300 Mg Tablet 1 Tab PO QHS Zyrtec (Cetirizine Hcl) 10 Mg Tablet 10 Mg PO HS Jayshree-D 24 Hour Tablet (Fexofenadine/Pseudoephedrine) 1 Each Tab.er.24h 1 Tab PO DAILY Allergies Allergies: Coded Allergies: Sulfa (Sulfonamide Antibiotics) (Verified Allergy, Intermediate, 06/04/17) amoxicillin (Verified Allergy, Intermediate, 06/11/17) clavulanic acid (Verified Allergy, Intermediate, 06/11/17) codeine (Verified Allergy, Intermediate, "HIGH DOSE", 06/04/17) doxycycline (Verified Allergy, Intermediate, 06/04/17) tobramycin (Verified Allergy, Intermediate, 06/04/17) ROS Review of System 10 point ROS positive for sinus problems, right leg pain, otherwise negative Vitals VITALS Vital Signs Date Time Temp Pulse Resp B/P (MAP) Pulse Ox O2 Delivery O2 Flow Rate FiO2 06/07/17 10:39 98 Room Air 06/07/17 07:00 98.0 108 16 141/69 (93) 98.0 Images Images Imaging reports reviewed. Orthopedic injuries noted. Assessment/Plan Assessment/Plan 46F with RLE pain with some orthopedic injuries but also with new shooting RLE pain -symptoms likely largely related to localized leg injuries -will need imaging of the lumbar spine to evaluate for any lumbar contributing factor -most optimally recommend MRI lumbar spine to further assess, could also acquire lumbar CT myelogram if unable to tolerate MRI DEYANIRA PHILLIP MD Jun 07, 2017 11:19
[2017-06-07] MEDS ORDERED: diazePAM 5 MG TABLET PO ONE (11:30)
[2017-06-07 15:00] VITALS: BP 138/72
--- NOTE | 2017-06-07 15:02 | RAD ---
MRI Lumbar Spine without contrast History: Chronic low back pain, right leg pain Technique: Multiplanar, multi sequential noncontrast MR imaging was performed of the lumbar spine. Contrast: None Comparison: None Findings: Lumbar vertebral body stature and AP alignment are preserved. Conus terminates at L1-2. Intervertebral disc spaces are preserved. There is posterior annular tear L3-4. There is no significant marrow edema. L3-L4: Neural foramina and spinal canal are adequate. L4-L5: Neural foramina and spinal canal are adequate. L5-S1: Spinal canal and neural foramina are adequate. Impression: 1. Other than posterior annular tear L3-4, there is no significant abnormality. Electronically signed by: Chris Paulino MD (06/07/2017 2:59 PM) [facility]
--- NOTE | 2017-06-07 16:37 | PDOC ---
PROGRESS NOTES Chief Complaint Chief Complaint acute right leg pain, pain in hip and knee and ankle right foot pain, and tingling in her feet, radiculopathy obesity, BMI 33 gastroesophageal reflux disease allergies, asthma History of Present Illness History of Present Illness Ortho following, looks OK, will need a cam boot neurosurg consulted, some radiculopathy, and some foot pain with back movement , MRI spine today, Dr. Goss to follow, plan DC in AM, outpatient f.u Vitals Vitals Vital Signs Date Time Temp Pulse Resp B/P (MAP) Pulse Ox O2 Delivery O2 Flow Rate FiO2 06/07/17 15:00 98.1 99 16 138/72 (94) 98 Room Air 98.1 Physical Exam General: Alert, Oriented X3, Cooperative, mild distress Heart: Regular rate, Normal S1, No murmurs Lungs: Clear Abdomen: Soft Extremities: No clubbing, No cyanosis, No edema, Normal pulses Skin: No rashes, No breakdown, No significant lesion Review of Systems Review of Systems back pain, anxiety right leg and foot pain, shooting pain Assessment and Plan Assessmemt and Plan Problems Medical Problems: (1) Intractable neuropathic pain of right lower extremity Status: Acute Problems: Comment Review of Relevant I have reviewed the following items dalila (where applicable) has been applied. Medications Current Medications Hydromorphone HCl (Dilaudid) 1 mg 1X ONCE IV Last administered on 06/04/17 18:36; Start 06/04/17 at 18:30; Stop 06/04/17 at 18:32; Status DC Hydromorphone HCl (Dilaudid) 1 mg 1X ONCE IV Last administered on 06/04/17 19:58; Start 06/04/17 at 20:00; Stop 06/04/17 at 20:01; Status DC Haloperidol Lactate (Haldol) 5 mg 1X ONCE IVP Last administered on 06/05/17 00:39; Start 06/05/17 at 00:15; Stop 06/05/17 at 00:16; Status DC Ondansetron HCl (Zofran) 4 mg PRN Q8HRS PRN IV NAUSEA/VOMITING; Start at 00:00; Stop 06/05/17 at 23:59; Status DC Fentanyl Citrate (Fentanyl 2ml Vial) 50 mcg PRN Q1HR PRN IV PAIN Last administered on 06/05/17 20:44; Start 06/05/17 at 00:00; Stop 06/05/17 at 23 :59; Status DC Acetaminophen (Tylenol) 650 mg PRN Q4HRS PRN PO FEVER Last administered on 10:02; Start 06/05/17 at 00:00; Stop 06/05/17 at 23:59; Status DC Diazepam (Valium) 5 mg 1X ONCE PO Last administered on 06/05/17 18:24; Start 06/05/17 at 14:00; Stop 06/05/17 at 14:01; Status DC Atorvastatin Calcium (Lipitor) 20 mg DAILY PO ; Start 06/06/17 at 09:00; Stop 06/07/17 at 08:54; Status DC Cetirizine HCl (ZyrTEC) 10 mg HS PO Last administered on 06/06/17 22:28; Start 06/05/17 at 21:00 Pseudoephedrine HCl (Sudafed 12-Hour) 120 mg BID PO Last administered on 08:49; Start 06/05/17 at 21:00 Non-Formulary Medication 1 puff PRN Q4HRS PRN INH SHORTNESS OF BREATH; Start 06/05/17 at 16:15; Status UNV Non-Formulary Medication 1 tab DAILY PO ; Start 06/06/17 at 09:00; Status UNV Fluticasone Propionate (Flonase) 2 spray DAILY NS Last administered on 08:49; Start 06/06/17 at 09:00 Non-Formulary Medication 1 tab DAILY PO ; Start 06/06/17 at 09:00; Status UNV Pantoprazole Sodium (Protonix) 40 mg DAILYAC PO Last administered on 08:49; Start 06/06/17 at 07:30 Multivit/ Folic Acid/Iron (Multivitamin ) 1 tab DAILY PO ; Start 06/06/17 at 09:00; Stop 06/07/17 at 08:54; Status DC Famotidine (Pepcid) 20 mg QHS PO Last administered on 06/06/17 22:28; Start 06/05/17 at 21:00 Albuterol Sulfate (Ventolin Neb Soln) 2.5 mg PRN Q6HRS PRN NEB SHORTNESS OF BREATH; Start 06/05/17 at 16:15 Diazepam (Valium) 5 mg 1X ONCE PO Last administered on 06/05/17 18:25; Start 06/05/17 at 18:30; Stop 06/05/17 at 18:31; Status DC Acetaminophen (Tylenol) 650 mg PRN Q6HRS PRN PO HEADACHE; Start 06/06/17 at 03 :00 Oxycodone/ Acetaminophen (Percocet 5/325) 1 tab PRN Q4HRS PRN PO PAIN Last administered on 06/07/17 10:39; Start 06/06/17 at 10:15 Fentanyl Citrate (Fentanyl 2ml Vial) 50 mcg PRN Q2HR PRN IV PAIN Last administered on 06/07/17 04:41; Start 06/06/17 at 10:15 Ketorolac Tromethamine (Toradol) 15 mg PRN Q6HRS PRN IV PAIN; Start 06/06/17 at 10:15; Stop 06/11/17 at 10:14 Atorvastatin Calcium (Lipitor) 20 mg QHS PO ; Start 06/07/17 at 21:00 Multivit/ Folic Acid/Iron (Multivitamin ) 1 tab QHS PO ; Start 06/07/17 at 21:00 Diazepam (Valium) 5 mg 1X ONCE PO Last administered on 06/07/17 13:28; Start 06/07/17 at 11:30; Stop 06/07/17 at 11:31; Status DC Active Scripts Active Reported Vitamins ( Vits W-Ca,Fe,Fa(<1MG)) 1 Each Tablet 1 Tab PO DAILY Sudafed 12-Hour (Pseudoephedrine Hcl) 120 Mg Tablet.er 1 Tab PO BID Atorvastatin Calcium 20 Mg Tablet 1 Tab PO DAILY Ortho-Novum (Norethindrone-Ethinyl Estrad) 1 Each Tablet 1 Tab PO DAILY Flonase Allergy Relief (Fluticasone Propionate) 9.9 Ml [place].susp 2 Sprays NS DAILY Proair Hfa Inhaler (Albuterol Sulfate) 8.5 Gm Hfa.aer.ad 1 Puff INH PRN Q4HRS PRN Prilosec Otc (Omeprazole Magnesium) 20 Mg Tablet.dr 1 Tab PO DAILY Zantac (Ranitidine Hcl) 300 Mg Tablet 1 Tab PO QHS Zyrtec (Cetirizine Hcl) 10 Mg Tablet 10 Mg PO HS Jayshree-D 24 Hour Tablet (Fexofenadine/Pseudoephedrine) 1 Each Tab.er.24h 1 Tab PO DAILY Vitals/I & O Vital Sign - Last 24 Hours 06/06/17 06/06/17 06/06/17 06/06/17 18:27 19:00 20:00 22:28 Temp 99.5 99.5 Pulse 98 Resp 18 17 B/P (MAP) 120/66 (84) Pulse Ox 95 O2 Delivery Room Air Room Air Room Air Room Air 06/06/17 06/06/17 06/07/17 06/07/17 22:58 23:35 00:52 03:00 Temp 98.2 97.9 98.2 97.9 Pulse 101 87 Resp 19 18 16 18 B/P (MAP) 112/80 (91) 105/57 (73) Pulse Ox 94 94 O2 Delivery Room Air Room Air Room Air Room Air 06/07/17 06/07/17 06/07/17 06/07/17 04:41 07:00 08:00 10:39 Temp 98.0 98.0 Pulse 108 Resp 16 16 B/P (MAP) 141/69 (93) Pulse Ox 98 98 O2 Delivery Room Air Room Air Room Air Room Air 06/07/17 06/07/17 11:50 15:00 Temp 98.1 98.1 Pulse 99 Resp 16 B/P (MAP) 138/72 (94) Pulse Ox 98 98 O2 Delivery Room Air Room Air Intake and Output 06/06/17 06/06/17 06/07/17 15:00 23:00 07:00 Intake Total 120 ml 0 ml Output Total 600 ml 150 ml Balance 120 ml -600 ml -150 ml MARCUS CHAVEZ MD Jun 07, 2017 16:37
[2017-06-07 19:00] VITALS: BP 106/64
[2017-06-07] MEDS: FAMOTIDINE 20 MG TABLET. PO SCH (21:05)
[2017-06-07] MEDS: CETIRIZINE HCL 10 MG TABLET. PO SCH (21:05)
[2017-06-07 23:00] VITALS: BP 126/64
[2017-06-08 03:00] VITALS: BP 120/71
[2017-06-08] MEDS: fentaNYL PF VIAL 100 MCG/2 ML VIAL IV PRN (04:03)
[2017-06-08 07:00] VITALS: BP 112/62
[2017-06-08] MEDS: oxyCODONE/APAP 5/325 1 TAB TABLET PO PRN ×3 (07:08→16:55)
[2017-06-08] MEDS: PANTOPRAZOLE 40 MG TABLET.DR. PO SCH (07:41)
[2017-06-08] MEDS: PSEUDOEPHEDRINE ER 120 MG TABLET.ER. PO SCH ×2 (07:41→21:07)
[2017-06-08] MEDS: FLUTICASONE 50MCG/NASAL SPRAY 16GM BOTTLE. NS SCH (07:41)
--- NOTE | 2017-06-08 10:15 | PDOC ---
SUBJECTIVE Subjective Denies acute changes. ROS: Reports ankle, knee, and hip pain. Denies SOA, CP. OBJECTIVE Objective lumbar MRI from 06/07/17 unremarkable without acute injury, stenoses, or other acute findings - no lumbar lesions are identified to correlate to leg pain Vital Signs Vital Signs Date Time Temp Pulse Resp B/P (MAP) Pulse Ox O2 Delivery O2 Flow Rate FiO2 06/08/17 07:08 98 Room Air 06/08/17 07:00 97.9 92 18 112/62 (79) 97 Room Air 97.9 06/08/17 04:33 98 Room Air 06/08/17 04:03 98 Room Air 06/08/17 03:00 98.3 94 18 120/71 (87) 93 Room Air 98.3 06/07/17 23:19 98 Room Air 06/07/17 23:00 98.2 96 18 126/64 (84) 96 Room Air 98.2 06/07/17 22:05 98 Room Air 06/07/17 21:05 98 Room Air 06/07/17 20:00 Room Air 06/07/17 19:00 98.3 94 18 106/64 (78) 97 Room Air 98.3 06/07/17 16:56 98 Room Air 06/07/17 15:00 98.1 99 16 138/72 (94) 98 Room Air 98.1 06/07/17 10:39 98 Room Air I & O Intake and Output 06/08/17 07:00 Intake Total 1350 ml Output Total 500 ml Balance 850 ml Intake Oral 1350 ml Output Urine Total 500 ml # Voids 1 PHYSICAL EXAM Physical Exam AAOX4, NAD, ROBISON limited ROM right ankle, knee, hip due to pain, sensation reports improvement right foot LT ASSESSMENT/PLAN Assessment/Plan 46F with injuries to RLE and right leg pain. -neuro stable within limits of exam -lumbar MRI unremarkable without any findings that can be correlated to leg pain -symptoms likely related to injuries RLE proper -d/w patient - no lumbar intervention at this time, further tx per ortho recs Problems: DEYANIRA PHILLIP MD Jun 08, 2017 10:15
[2017-06-08 10:35] VITALS: BP 120/65
--- NOTE | 2017-06-08 12:29 | PDOC ---
PROGRESS NOTES Chief Complaint Chief Complaint acute right leg pain, pain in hip and knee and ankle right foot pain, and tingling in her feet, radiculopathy obesity, BMI 33 gastroesophageal reflux disease allergies, asthma History of Present Illness History of Present Illness Ortho following, looks OK, will need a cam boot neurosurg consulted, spine looks normal she complains of severe pain cannot walk, fell when transferring from chair to bed, has steps in her house, PT and OT following, consult soc services , SNU or rehab Vitals Vitals Vital Signs Date Time Temp Pulse Resp B/P (MAP) Pulse Ox O2 Delivery O2 Flow Rate FiO2 06/08/17 12:23 16 Room Air 06/08/17 10:35 98.0 97 120/65 (83) 98 98.0 Physical Exam General: Alert, Oriented X3, Cooperative, mild distress Heart: Regular rate, Normal S1, No murmurs Lungs: Clear Abdomen: Soft Extremities: No clubbing, No cyanosis, No edema, Normal pulses Skin: No rashes, No breakdown, No significant lesion Review of Systems Review of Systems foot pain, back pain, leg pain, weakness Assessment and Plan Assessmemt and Plan Problems Medical Problems: (1) Intractable neuropathic pain of right lower extremity Status: Acute Problems: Comment Review of Relevant I have reviewed the following items dalila (where applicable) has been applied. Medications Current Medications Hydromorphone HCl (Dilaudid) 1 mg 1X ONCE IV Last administered on 06/04/17 18:36; Start 06/04/17 at 18:30; Stop 06/04/17 at 18:32; Status DC Hydromorphone HCl (Dilaudid) 1 mg 1X ONCE IV Last administered on 06/04/17 19:58; Start 06/04/17 at 20:00; Stop 06/04/17 at 20:01; Status DC Haloperidol Lactate (Haldol) 5 mg 1X ONCE IVP Last administered on 06/05/17 00:39; Start 06/05/17 at 00:15; Stop 06/05/17 at 00:16; Status DC Ondansetron HCl (Zofran) 4 mg PRN Q8HRS PRN IV NAUSEA/VOMITING; Start at 00:00; Stop 06/05/17 at 23:59; Status DC Fentanyl Citrate (Fentanyl 2ml Vial) 50 mcg PRN Q1HR PRN IV PAIN Last administered on 06/05/17 20:44; Start 06/05/17 at 00:00; Stop 06/05/17 at 23 :59; Status DC Acetaminophen (Tylenol) 650 mg PRN Q4HRS PRN PO FEVER Last administered on 10:02; Start 06/05/17 at 00:00; Stop 06/05/17 at 23:59; Status DC Diazepam (Valium) 5 mg 1X ONCE PO Last administered on 06/05/17 18:24; Start 06/05/17 at 14:00; Stop 06/05/17 at 14:01; Status DC Atorvastatin Calcium (Lipitor) 20 mg DAILY PO ; Start 06/06/17 at 09:00; Stop 06/07/17 at 08:54; Status DC Cetirizine HCl (ZyrTEC) 10 mg HS PO Last administered on 06/07/17 21:05; Start 06/05/17 at 21:00 Pseudoephedrine HCl (Sudafed 12-Hour) 120 mg BID PO Last administered on 07:41; Start 06/05/17 at 21:00 Non-Formulary Medication 1 puff PRN Q4HRS PRN INH SHORTNESS OF BREATH; Start 06/05/17 at 16:15; Status UNV Non-Formulary Medication 1 tab DAILY PO ; Start 06/06/17 at 09:00; Status UNV Fluticasone Propionate (Flonase) 2 spray DAILY NS Last administered on 07:41; Start 06/06/17 at 09:00 Non-Formulary Medication 1 tab DAILY PO ; Start 06/06/17 at 09:00; Status UNV Pantoprazole Sodium (Protonix) 40 mg DAILYAC PO Last administered on 07:41; Start 06/06/17 at 07:30 Multivit/ Folic Acid/Iron (Multivitamin ) 1 tab DAILY PO ; Start 06/06/17 at 09:00; Stop 06/07/17 at 08:54; Status DC Famotidine (Pepcid) 20 mg QHS PO Last administered on 06/07/17 21:05; Start 06/05/17 at 21:00 Albuterol Sulfate (Ventolin Neb Soln) 2.5 mg PRN Q6HRS PRN NEB SHORTNESS OF BREATH; Start 06/05/17 at 16:15 Diazepam (Valium) 5 mg 1X ONCE PO Last administered on 06/05/17 18:25; Start 06/05/17 at 18:30; Stop 06/05/17 at 18:31; Status DC Acetaminophen (Tylenol) 650 mg PRN Q6HRS PRN PO HEADACHE; Start 06/06/17 at 03 :00 Oxycodone/ Acetaminophen (Percocet 5/325) 1 tab PRN Q4HRS PRN PO PAIN Last administered on 06/08/17 12:23; Start 06/06/17 at 10:15 Fentanyl Citrate (Fentanyl 2ml Vial) 50 mcg PRN Q2HR PRN IV PAIN Last administered on 06/08/17 04:03; Start 06/06/17 at 10:15 Ketorolac Tromethamine (Toradol) 15 mg PRN Q6HRS PRN IV PAIN; Start 06/06/17 at 10:15; Stop 06/11/17 at 10:14 Atorvastatin Calcium (Lipitor) 20 mg QHS PO Last administered on 06/07/17 21: 06; Start 06/07/17 at 21:00 Multivit/ Folic Acid/Iron (Multivitamin ) 1 tab QHS PO Last administered on 06/07/17 21:05; Start 06/07/17 at 21:00 Diazepam (Valium) 5 mg 1X ONCE PO Last administered on 06/07/17 13:28; Start 06/07/17 at 11:30; Stop 06/07/17 at 11:31; Status DC Active Scripts Active Reported Vitamins ( Vits W-Ca,Fe,Fa(<1MG)) 1 Each Tablet 1 Tab PO DAILY Sudafed 12-Hour (Pseudoephedrine Hcl) 120 Mg Tablet.er 1 Tab PO BID Atorvastatin Calcium 20 Mg Tablet 1 Tab PO DAILY Ortho-Novum (Norethindrone-Ethinyl Estrad) 1 Each Tablet 1 Tab PO DAILY Flonase Allergy Relief (Fluticasone Propionate) 9.9 Ml [place].susp 2 Sprays NS DAILY Proair Hfa Inhaler (Albuterol Sulfate) 8.5 Gm Hfa.aer.ad 1 Puff INH PRN Q4HRS PRN Prilosec Otc (Omeprazole Magnesium) 20 Mg Tablet.dr 1 Tab PO DAILY Zantac (Ranitidine Hcl) 300 Mg Tablet 1 Tab PO QHS Zyrtec (Cetirizine Hcl) 10 Mg Tablet 10 Mg PO HS Jasyhree-D 24 Hour Tablet (Fexofenadine/Pseudoephedrine) 1 Each Tab.er.24h 1 Tab PO DAILY Vitals/I & O Vital Sign - Last 24 Hours 06/07/17 06/07/17 06/07/17 06/07/17 15:00 16:56 19:00 20:00 Temp 98.1 98.3 98.1 98.3 Pulse 99 94 Resp 16 18 B/P (MAP) 138/72 (94) 106/64 (78) Pulse Ox 98 98 97 O2 Delivery Room Air Room Air Room Air Room Air 06/07/17 06/07/17 06/07/17 06/07/17 21:05 22:05 23:00 23:19 Temp 98.2 98.2 Pulse 96 Resp 18 B/P (MAP) 126/64 (84) Pulse Ox 98 98 96 98 O2 Delivery Room Air Room Air Room Air Room Air 06/08/17 06/08/17 06/08/17 06/08/17 03:00 04:03 04:33 07:00 Temp 98.3 97.9 98.3 97.9 Pulse 94 92 Resp 18 18 B/P (MAP) 120/71 (87) 112/62 (79) Pulse Ox 93 98 98 97 O2 Delivery Room Air Room Air Room Air Room Air 06/08/17 06/08/17 06/08/17 06/08/17 07:08 08:00 10:35 12:23 Temp 98.0 98.0 Pulse 97 Resp 16 16 B/P (MAP) 120/65 (83) Pulse Ox 98 98 O2 Delivery Room Air Room Air Room Air Room Air Intake and Output 06/07/17 06/07/17 06/08/17 15:00 23:00 07:00 Intake Total 500 ml 850 ml Output Total 500 ml Balance 0 ml 850 ml MARCUS CHAVEZ MD Jun 08, 2017 12:29
[2017-06-08 15:00] VITALS: BP 111/67
[2017-06-08] MEDS ORDERED: AZITHROMYCIN 250 MG TABLET. PO ONE (15:00)
[2017-06-08 19:54] VITALS: BP 150/80
[2017-06-08] MEDS: FAMOTIDINE 20 MG TABLET. PO SCH (21:07)
[2017-06-08] MEDS: LACTOBACILLUS RHAMNOSUS GG 1 CAPSULE. PO SCH (21:07)
[2017-06-08] MEDS: ALPRAZolam 0.5 MG TABLET PO PRN (21:07)
[2017-06-08] MEDS: oxyCODONE/APAP 10/325 1 TAB TABLET PO PRN (21:07)
[2017-06-08] MEDS: GABAPENTIN 300 MG CAPSULE. PO SCH (21:07)
[2017-06-08] MEDS: CETIRIZINE HCL 10 MG TABLET. PO SCH (21:07)
[2017-06-08] MEDS: ATORVASTATIN CALCIUM 20 MG TABLET PO SCH (21:07)
[2017-06-08] MEDS: DICLOFENAC SODIUM 1% TOPICAL GEL 100GM TUBE. TP SCH (21:08)
[2017-06-08] MEDS: PRENATAL MULTIVITAMIN TABLET. PO SCH (21:15)
--- NOTE | 2017-06-08 22:44 | CONS ---
DATE OF CONSULTATION: 06/08/2017 ATTENDING PHYSICIAN: Dr. Gong. The patient was seen at the request of Dr. Bang for rehab evaluation. 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 The patient stepped off a curb wrong and twisted her right ankle and foot, admitted with excruciating pain, unable to stand on her foot or weight bear. Whole right lower extremity and back hurts. She was seen in the Emergency Room, had x-rays which failed to reveal any abnormalities. She had CT scan of the pelvis, which showed possible lucency of the femoral neck, suspicious for possible occult femoral neck fracture. The patient admits most of the pain is in her right foot and she admits some numbness in her right lower extremity, mainly in her foot. The patient with known asthmatic bronchitis, hypertriglyceridemia. FAMILY HISTORY: Positive for heart disease in both parents. ALLERGIES: THE PATIENT IS KNOWN ALLERGIC TO SULFA, AMOXICILLIN, DOXYCYCLINE, TOBRAMYCIN AND CODEINE. The patient had MRI scan of the pelvis, which revealed nondisplaced undersurface tear of the anterior and superior acetabular labrum, mild greater trochanteric and hamstring bursitis. No fracture was noted. She had lumbar spine MRI scan done today, which was within normal limits, except posterior annular tear at L3-L4. The patient admits chronic mid back area pain from fibromyalgia. The patient also admits some right shoulder area discomfort. The patient is being followed by physical therapy. As per therapy notes, dated 06/07/2017, she had about 2-3 stairs to enter the house. The patient's activity tolerance limited by pain in her lower back, posterior thigh and right leg and right ankle. She holds her right leg in a position of knee flexion and hip in external rotation, became very anxious and verbalizes pain with any attempt at right knee extension, active passive. She demonstrates limited ability to actively dorsiflex her right ankle. Left lower extremity within functional limits. They were unable to manual test right lower extremity strength due to pain. Her right hip flexion strength is at least 3+/5 as evidenced by patient's ability to move independently against gravity. The patient is independent with rolling from [id number] using bed rails. Supine to sit standby assistance using bedrail. She stayed up in the chair with contact guard assistance, transferred stand step using a roller walker. She treats her right lower extremity as nonweightbearing due to no Cam boot present yet. Constant cues needed for weight shifting, breathing through pain, utilizing upper extremity to avoid heavy hopping on her left lower extremity. With contact guard assistance with a roller walker, she walked for about 4 feet from bed to chair. The patient is being considered for transfer to [facility]. PHYSICAL EXAMINATION: Today revealed a middle-aged female. She is alert, in no acute distress. The patient had her right lower extremity in a position of hip and knee flexion and external rotation at right hip. She had some tenderness to palpation over right sacroiliac joint area, right gluteal muscles, trochanteric bursa over the right leg lateral aspect proximally, where there is a fibula fracture and not much tenderness to palpation at right ankle or right foot. She admits to decreased sensory perception over the dorsal aspect of her right foot. She is protecting her right lower extremity to a significant degree and not cooperative during muscle strength examination, hollering with pain with any attempts at moving her right knee or right ankle. She can move her right ankle to some extent up and down, but resisting any inversion or eversion movements and she is resisting right knee flexion and extension. Deep tendon reflexes are 2+ and symmetrical. She had 5/5 grade muscle strength in her upper extremities and left lower extremity. I have not tested her transfer or ambulation skills at this time. ASSESSMENT: A middle-aged female with recent fall and sprain, right lower extremity with fracture of right proximal fibula; sprain, right hip, right knee and right foot. No clinical evidence of lumbar radiculopathy. Right foot numbness may be secondary to right femoral nerve irritation from fractured fibula. RECOMMENDATIONS: To get her a knee immobilizer to help keep her knee in extension. She is going to go ahead and order Cam boot from [id number] as her insurance company does not let her get one from [facility]. To get her up as tolerated using a roller walker. To increase dose of Percocet, to try gabapentin and Xanax to help with her anxiety and try Flexeril for muscle spasms and to obtain Doppler studies as she has some tenderness to palpation, right calf. Dr. Bang, I appreciate asking me to participate in the care of this interesting patient. I will be glad to follow her with you as needed for her rehabilitation. KIKI KENNY MD DR: KAE/edgard JOB#: [id number] / [id number]
[2017-06-08 23:18] VITALS: BP 106/66
[2017-06-09 03:00] VITALS: BP 100/51
[2017-06-09 07:00] VITALS: BP 136/46
--- NOTE | 2017-06-09 08:25 | RAD ---
Ultrasound venous Doppler Indication: Right calf pain and tenderness Technique: Grayscale, color Doppler and spectral waveform ultrasound images of the right approximately deep veins. Comparison: None Findings: The interrogated right lower axillary deep veins are compressible and demonstrates evidence of blood flow with normal respiratory variation and response to augmentation. Impression: No sonographic evidence of acute DVT of the interrogated right lower axillary deep veins.
[2017-06-09] MEDS: oxyCODONE/APAP 10/325 1 TAB TABLET PO PRN ×2 (08:43→18:47)
[2017-06-09] MEDS: DICLOFENAC SODIUM 1% TOPICAL GEL 100GM TUBE. TP SCH ×2 (08:43→12:40)
[2017-06-09] MEDS: LACTOBACILLUS RHAMNOSUS GG 1 CAPSULE. PO SCH ×2 (08:43→20:29)
[2017-06-09] MEDS: PSEUDOEPHEDRINE ER 120 MG TABLET.ER. PO SCH ×2 (08:43→20:28)
[2017-06-09] MEDS: PANTOPRAZOLE 40 MG TABLET.DR. PO SCH (08:44)
[2017-06-09] MEDS: GABAPENTIN 300 MG CAPSULE. PO SCH ×3 (08:44→21:30)
[2017-06-09] MEDS: AZITHROMYCIN 250 MG TABLET. PO SCH (08:44)
[2017-06-09] MEDS: FLUTICASONE 50MCG/NASAL SPRAY 16GM BOTTLE. NS SCH (08:45)
--- NOTE | 2017-06-09 09:19 | PDOC ---
PROGRESS NOTES Subjective Subjective She continues with right foot and ankle and knee pain. Objective Objective Vital Signs Date Time Temp Pulse Resp B/P (MAP) Pulse Ox O2 Delivery O2 Flow Rate FiO2 06/09/17 08:43 16 Room Air 06/09/17 07:00 97.8 94 136/46 (76) 98 97.8 Intake and Output 06/09/17 07:00 Intake Total 1520 ml Output Total 500 ml Balance 1020 ml Intake Oral 1520 ml Output Urine Total 500 ml # Voids 1 # Bowel Movements 2 Physical Exam Physical Exam She apparently got up last night and she is not protecting her right lower extremity as bad as she did last night.She continues with tenderness to palpation over right ankle anteriolateral aspect and hamstring tendon insertion right knee and still having difficulty to extend her right knee fully and she had positive Tinel's sign over right peroneal nerve at fibular neck and decreased sensory perception right foot mainly over peroneal nerve distribution. Assessment Assessment Problems Medical Problems: (1) Intractable neuropathic pain of right lower extremity Status: Acute Sprain right ankle Right fibula fracture Right peroneal nerve stretch lesion in leg Sprain right hip Sprain right knee Sprain lumbar spine. Plan Plan of Care To get her up with air cast to her right ankle with shoe and let her weight bear as tolerated with roller walker,to use knee immobilizer while in bed to help ease knee pain and to check with orthopedics about labral tear in right hip joint and to see how she does get around in the next 2 days before transfer to SNF and if she is doing better including climbing stairs she may go home with home health or out patient follow up. She apparently ordered cam boot online and I am afraid it may cause pressure on her fracture fibula area. Comment Review of Relevant I have reviewed the following items dalila (where applicable) has been applied. Medications Current Medications Hydromorphone HCl (Dilaudid) 1 mg 1X ONCE IV Last administered on 06/04/17 18:36; Start 06/04/17 at 18:30; Stop 06/04/17 at 18:32; Status DC Hydromorphone HCl (Dilaudid) 1 mg 1X ONCE IV Last administered on 06/04/17 19:58; Start 06/04/17 at 20:00; Stop 06/04/17 at 20:01; Status DC Haloperidol Lactate (Haldol) 5 mg 1X ONCE IVP Last administered on 06/05/17 00:39; Start 06/05/17 at 00:15; Stop 06/05/17 at 00:16; Status DC Ondansetron HCl (Zofran) 4 mg PRN Q8HRS PRN IV NAUSEA/VOMITING; Start at 00:00; Stop 06/05/17 at 23:59; Status DC Fentanyl Citrate (Fentanyl 2ml Vial) 50 mcg PRN Q1HR PRN IV PAIN Last administered on 06/05/17 20:44; Start 06/05/17 at 00:00; Stop 06/05/17 at 23 :59; Status DC Acetaminophen (Tylenol) 650 mg PRN Q4HRS PRN PO FEVER Last administered on 10:02; Start 06/05/17 at 00:00; Stop 06/05/17 at 23:59; Status DC Diazepam (Valium) 5 mg 1X ONCE PO Last administered on 06/05/17 18:24; Start 06/05/17 at 14:00; Stop 06/05/17 at 14:01; Status DC Atorvastatin Calcium (Lipitor) 20 mg DAILY PO ; Start 06/06/17 at 09:00; Stop 06/07/17 at 08:54; Status DC Cetirizine HCl (ZyrTEC) 10 mg HS PO Last administered on 06/08/17 21:07; Start 06/05/17 at 21:00 Pseudoephedrine HCl (Sudafed 12-Hour) 120 mg BID PO Last administered on 08:43; Start 06/05/17 at 21:00 Non-Formulary Medication 1 puff PRN Q4HRS PRN INH SHORTNESS OF BREATH; Start 06/05/17 at 16:15; Status UNV Non-Formulary Medication 1 tab DAILY PO ; Start 06/06/17 at 09:00; Status UNV Fluticasone Propionate (Flonase) 2 spray DAILY NS Last administered on 08:45; Start 06/06/17 at 09:00 Non-Formulary Medication 1 tab DAILY PO ; Start 06/06/17 at 09:00; Status UNV Pantoprazole Sodium (Protonix) 40 mg DAILYAC PO Last administered on 08:44; Start 06/06/17 at 07:30 Multivit/ Folic Acid/Iron (Multivitamin ) 1 tab DAILY PO ; Start 06/06/17 at 09:00; Stop 06/07/17 at 08:54; Status DC Famotidine (Pepcid) 20 mg QHS PO Last administered on 06/08/17 21:07; Start 06/05/17 at 21:00 Albuterol Sulfate (Ventolin Neb Soln) 2.5 mg PRN Q6HRS PRN NEB SHORTNESS OF BREATH; Start 06/05/17 at 16:15 Diazepam (Valium) 5 mg 1X ONCE PO Last administered on 06/05/17 18:25; Start 06/05/17 at 18:30; Stop 06/05/17 at 18:31; Status DC Acetaminophen (Tylenol) 650 mg PRN Q6HRS PRN PO HEADACHE; Start 06/06/17 at 03 :00 Oxycodone/ Acetaminophen (Percocet 5/325) 1 tab PRN Q4HRS PRN PO PAIN Last administered on 06/08/17 16:55; Start 06/06/17 at 10:15; Stop 06/08/17 at 18 :25; Status DC Fentanyl Citrate (Fentanyl 2ml Vial) 50 mcg PRN Q2HR PRN IV PAIN Last administered on 06/08/17 04:03; Start 06/06/17 at 10:15 Ketorolac Tromethamine (Toradol) 15 mg PRN Q6HRS PRN IV PAIN; Start 06/06/17 at 10:15; Stop 06/11/17 at 10:14 Atorvastatin Calcium (Lipitor) 20 mg QHS PO Last administered on 06/08/17 21: 07; Start 06/07/17 at 21:00 Multivit/ Folic Acid/Iron (Multivitamin ) 1 tab QHS PO Last administered on 06/08/17 21:15; Start 06/07/17 at 21:00 Diazepam (Valium) 5 mg 1X ONCE PO Last administered on 06/07/17 13:28; Start 06/07/17 at 11:30; Stop 06/07/17 at 11:31; Status DC Azithromycin (Zithromax) 500 mg 1X ONCE PO Last administered on 06/08/17 16: 55; Start 06/08/17 at 15:00; Stop 06/08/17 at 15:01; Status DC Azithromycin (Zithromax) 250 mg DAILY PO Last administered on 06/09/17 08:44 ; Start 06/09/17 at 09:00 Lactobacillus Rhamnosus (Culturelle) 1 cap BID PO Last administered on 08:43; Start 06/08/17 at 21:00 Diclofenac Sodium (Voltaren) 1 chantal BID TP Last administered on 06/09/17 08:43 ; Start 06/08/17 at 21:00 Gabapentin (Neurontin) 300 mg TID PO Last administered on 06/09/17 08:44; Start 06/08/17 at 21:00 Oxycodone/ Acetaminophen (Percocet 10/325) 1 tab PRN Q4HRS PRN PO PAIN Last administered on 06/09/17 08:43; Start 06/08/17 at 18:30 Cyclobenzaprine HCl (Flexeril) 10 mg Q6HRS PO ; Start 06/09/17 at 18:00 Alprazolam (Xanax) 0.5 mg PRN Q8HRS PRN PO ANXIETY / AGITATION Last administered on 06/08/17 21:07; Start 06/08/17 at 18:30 Active Scripts Active Reported Vitamins ( Vits W-Ca,Fe,Fa(<1MG)) 1 Each Tablet 1 Tab PO DAILY Sudafed 12-Hour (Pseudoephedrine Hcl) 120 Mg Tablet.er 1 Tab PO BID Atorvastatin Calcium 20 Mg Tablet 1 Tab PO DAILY Ortho-Novum (Norethindrone-Ethinyl Estrad) 1 Each Tablet 1 Tab PO DAILY Flonase Allergy Relief (Fluticasone Propionate) 9.9 Ml [place].susp 2 Sprays NS DAILY Proair Hfa Inhaler (Albuterol Sulfate) 8.5 Gm Hfa.aer.ad 1 Puff INH PRN Q4HRS PRN Prilosec Otc (Omeprazole Magnesium) 20 Mg Tablet.dr 1 Tab PO DAILY Zantac (Ranitidine Hcl) 300 Mg Tablet 1 Tab PO QHS Zyrtec (Cetirizine Hcl) 10 Mg Tablet 10 Mg PO HS Jayshree-D 24 Hour Tablet (Fexofenadine/Pseudoephedrine) 1 Each Tab.er.24h 1 Tab PO DAILY Vitals/I & O Vital Sign - Last 24 Hours 06/08/17 06/08/17 06/08/17 06/08/17 10:35 12:23 13:23 15:00 Temp 98.0 97.9 98.0 97.9 Pulse 97 101 Resp 16 16 16 16 B/P (MAP) 120/65 (83) 111/67 (82) Pulse Ox 98 98 O2 Delivery Room Air Room Air Room Air Room Air 06/08/17 06/08/17 06/08/17 06/08/17 15:25 16:55 19:54 20:00 Temp 98.2 98.2 Pulse 99 Resp 18 18 B/P (MAP) 150/80 (103) Pulse Ox 98 96 O2 Delivery Room Air Room Air Room Air Room Air 06/08/17 06/08/17 06/08/17 06/09/17 21:07 22:07 23:18 03:00 Temp 98.7 98.6 98.7 98.6 Pulse 101 94 Resp 18 18 16 B/P (MAP) 106/66 (79) 100/51 (67) Pulse Ox 96 96 96 93 O2 Delivery Room Air Room Air Room Air Room Air 06/09/17 06/09/17 06/09/17 07:00 08:00 08:43 Temp 97.8 97.8 Pulse 94 Resp 16 16 B/P (MAP) 136/46 (76) Pulse Ox 98 O2 Delivery Room Air Room Air Room Air Intake and Output 06/08/17 06/08/17 06/09/17 15:00 23:00 07:00 Intake Total 720 ml 800 ml Output Total 500 ml Balance 220 ml 800 ml KIKI KENNY MD Jun 09, 2017 09:19
[2017-06-09 11:00] VITALS: BP 125/66
--- NOTE | 2017-06-09 11:12 | PDOC ---
PROGRESS NOTES Chief Complaint Chief Complaint acute right leg pain right nondisplaced proximal fibula fracture right labral tear R trochanteric and hamstring bursitis L3-4 posterior annular tear fibromyalgia obesity, BMI 33 gastroesophageal reflux disease allergies, asthma History of Present Illness History of Present Illness Patient received lumbar MRI, knee XR, pelvis MRI, ankle/hip/pelvis XR, and lower extremity CT. Results of imaging demonstrated a right nondisplaced proximal fibula fracture, right labral tear, right trochanteric and hamstring bursitis, and L3-4 posterior annular tear. Patient still is reporting pain in her leg and concerns over ambulation and carrying for her mother. Patient is requesting additional help caring for herself and in order to strengthen after her injury at a SNU or rehab facility. Vitals Vitals Vital Signs Date Time Temp Pulse Resp B/P (MAP) Pulse Ox O2 Delivery O2 Flow Rate FiO2 06/09/17 11:00 98.0 98 16 125/66 (85) 96 Room Air 98.0 Physical Exam General: Alert, Oriented X3, Cooperative, mild distress Heart: Regular rate, Normal S1, No murmurs Lungs: Clear Abdomen: Soft Extremities: No clubbing, No cyanosis, No edema, Normal pulses, Other (patient resting L lateral decubitus w/multiple ice packs on R LE ) Skin: No rashes, No breakdown, No significant lesion Review of Systems Review of Systems patient reports difficulty with ambulation patient reports R LE pain Assessment and Plan Assessmemt and Plan Problems Medical Problems: (1) Intractable neuropathic pain of right lower extremity Status: Acute Assessment: acute right leg pain right nondisplaced proximal fibula fracture right labral tear R trochanteric and hamstring bursitis L3-4 posterior annular tear fibromyalgia obesity, BMI 33 gastroesophageal reflux disease allergies, asthma Plan: Continue PRN ice packs PRN pain management with narcotics PT/OT Recheck labs Home meds SNU evaluation and discharge Appreciate subspecialist input Problems: Comment Review of Relevant I have reviewed the following items dalila (where applicable) has been applied. Medications Current Medications Hydromorphone HCl (Dilaudid) 1 mg 1X ONCE IV Last administered on 06/04/17t 18:36; Start 06/04/17 at 18:30; Stop 06/04/17 at 18:32; Status DC Hydromorphone HCl (Dilaudid) 1 mg 1X ONCE IV Last administered on 06/04/17 19:58; Start 06/04/17 at 20:00; Stop 06/04/17 at 20:01; Status DC Haloperidol Lactate (Haldol) 5 mg 1X ONCE IVP Last administered on 06/05/17 00:39; Start 06/05/17 at 00:15; Stop 06/05/17 at 00:16; Status DC Ondansetron HCl (Zofran) 4 mg PRN Q8HRS PRN IV NAUSEA/VOMITING; Start at 00:00; Stop 06/05/17 at 23:59; Status DC Fentanyl Citrate (Fentanyl 2ml Vial) 50 mcg PRN Q1HR PRN IV PAIN Last administered on 06/05/17 20:44; Start 06/05/17 at 00:00; Stop 06/05/17 at 23 :59; Status DC Acetaminophen (Tylenol) 650 mg PRN Q4HRS PRN PO FEVER Last administered on 10:02; Start 06/05/17 at 00:00; Stop 06/05/17 at 23:59; Status DC Diazepam (Valium) 5 mg 1X ONCE PO Last administered on 06/05/17 18:24; Start 06/05/17 at 14:00; Stop 06/05/17 at 14:01; Status DC Atorvastatin Calcium (Lipitor) 20 mg DAILY PO ; Start 06/06/17 at 09:00; Stop 06/07/17 at 08:54; Status DC Cetirizine HCl (ZyrTEC) 10 mg HS PO Last administered on 06/08/17 21:07; Start 06/05/17 at 21:00 Pseudoephedrine HCl (Sudafed 12-Hour) 120 mg BID PO Last administered on 08:43; Start 06/05/17 at 21:00 Non-Formulary Medication 1 puff PRN Q4HRS PRN INH SHORTNESS OF BREATH; Start 06/05/17 at 16:15; Status UNV Non-Formulary Medication 1 tab DAILY PO ; Start 06/06/17 at 09:00; Status UNV Fluticasone Propionate (Flonase) 2 spray DAILY NS Last administered on 08:45; Start 06/06/17 at 09:00 Non-Formulary Medication 1 tab DAILY PO ; Start 06/06/17 at 09:00; Status UNV Pantoprazole Sodium (Protonix) 40 mg DAILYAC PO Last administered on 08:44; Start 06/06/17 at 07:30 Multivit/ Folic Acid/Iron (Multivitamin ) 1 tab DAILY PO ; Start 06/06/17 at 09:00; Stop 06/07/17 at 08:54; Status DC Famotidine (Pepcid) 20 mg QHS PO Last administered on 06/08/17 21:07; Start 06/05/17 at 21:00 Albuterol Sulfate (Ventolin Neb Soln) 2.5 mg PRN Q6HRS PRN NEB SHORTNESS OF BREATH; Start 06/05/17 at 16:15 Diazepam (Valium) 5 mg 1X ONCE PO Last administered on 06/05/17 18:25; Start 06/05/17 at 18:30; Stop 06/05/17 at 18:31; Status DC Acetaminophen (Tylenol) 650 mg PRN Q6HRS PRN PO HEADACHE; Start 06/06/17 at 03 :00 Oxycodone/ Acetaminophen (Percocet 5/325) 1 tab PRN Q4HRS PRN PO PAIN Last administered on 06/08/17 16:55; Start 06/06/17 at 10:15; Stop 06/08/17 at 18 :25; Status DC Fentanyl Citrate (Fentanyl 2ml Vial) 50 mcg PRN Q2HR PRN IV PAIN Last administered on 06/08/17 04:03; Start 06/06/17 at 10:15 Ketorolac Tromethamine (Toradol) 15 mg PRN Q6HRS PRN IV PAIN; Start 06/06/17 at 10:15; Stop 06/11/17 at 10:14 Atorvastatin Calcium (Lipitor) 20 mg QHS PO Last administered on 06/08/17 21: 07; Start 06/07/17 at 21:00 Multivit/ Folic Acid/Iron (Multivitamin ) 1 tab QHS PO Last administered on 06/08/17 21:15; Start 06/07/17 at 21:00 Diazepam (Valium) 5 mg 1X ONCE PO Last administered on 06/07/17 13:28; Start 06/07/17 at 11:30; Stop 06/07/17 at 11:31; Status DC Azithromycin (Zithromax) 500 mg 1X ONCE PO Last administered on 06/08/17 16: 55; Start 06/08/17 at 15:00; Stop 06/08/17 at 15:01; Status DC Azithromycin (Zithromax) 250 mg DAILY PO Last administered on 06/09/17 08:44 ; Start 06/09/17 at 09:00 Lactobacillus Rhamnosus (Culturelle) 1 cap BID PO Last administered on 08:43; Start 06/08/17 at 21:00 Diclofenac Sodium (Voltaren) 1 chantal BID TP Last administered on 06/09/17 08:43 ; Start 06/08/17 at 21:00 Gabapentin (Neurontin) 300 mg TID PO Last administered on 06/09/17 08:44; Start 06/08/17 at 21:00 Oxycodone/ Acetaminophen (Percocet 10/325) 1 tab PRN Q4HRS PRN PO PAIN Last administered on 06/09/17 08:43; Start 06/08/17 at 18:30 Cyclobenzaprine HCl (Flexeril) 10 mg Q6HRS PO ; Start 06/09/17 at 18:00; Stop 06/09/17 at 18:00; Status DC Alprazolam (Xanax) 0.5 mg PRN Q8HRS PRN PO ANXIETY / AGITATION Last administered on 06/08/17 21:07; Start 06/08/17 at 18:30 Baclofen (Lioresal) 10 mg TID PO ; Start 06/09/17 at 10:00 Active Scripts Active Reported Vitamins ( Vits W-Ca,Fe,Fa(<1MG)) 1 Each Tablet 1 Tab PO DAILY Sudafed 12-Hour (Pseudoephedrine Hcl) 120 Mg Tablet.er 1 Tab PO BID Atorvastatin Calcium 20 Mg Tablet 1 Tab PO DAILY Ortho-Novum (Norethindrone-Ethinyl Estrad) 1 Each Tablet 1 Tab PO DAILY Flonase Allergy Relief (Fluticasone Propionate) 9.9 Ml [place].susp 2 Sprays NS DAILY Proair Hfa Inhaler (Albuterol Sulfate) 8.5 Gm Hfa.aer.ad 1 Puff INH PRN Q4HRS PRN Prilosec Otc (Omeprazole Magnesium) 20 Mg Tablet.dr 1 Tab PO DAILY Zantac (Ranitidine Hcl) 300 Mg Tablet 1 Tab PO QHS Zyrtec (Cetirizine Hcl) 10 Mg Tablet 10 Mg PO HS Jayshree-D 24 Hour Tablet (Fexofenadine/Pseudoephedrine) 1 Each Tab.er.24h 1 Tab PO DAILY Vitals/I & O Vital Sign - Last 24 Hours 06/08/17 06/08/17 06/08/17 06/08/17 12:23 13:23 15:00 15:25 Temp 97.9 97.9 Pulse 101 Resp 16 16 16 B/P (MAP) 111/67 (82) Pulse Ox 98 98 O2 Delivery Room Air Room Air Room Air Room Air 06/08/17 06/08/17 06/08/17 06/08/17 16:55 19:54 20:00 21:07 Temp 98.2 98.2 Pulse 99 Resp 18 18 B/P (MAP) 150/80 (103) Pulse Ox 96 96 O2 Delivery Room Air Room Air Room Air Room Air 06/08/17 06/08/17 06/09/17 06/09/17 22:07 23:18 03:00 07:00 Temp 98.7 98.6 97.8 98.7 98.6 97.8 Pulse 101 94 94 Resp 18 16 16 B/P (MAP) 106/66 (79) 100/51 (67) 136/46 (76) Pulse Ox 96 96 93 98 O2 Delivery Room Air Room Air Room Air 06/09/17 06/09/17 06/09/17 06/09/17 08:00 08:43 09:43 11:00 Temp 98.0 98.0 Pulse 98 Resp 16 18 16 B/P (MAP) 125/66 (85) Pulse Ox 96 O2 Delivery Room Air Room Air Room Air Room Air Intake and Output 06/08/17 06/08/17 06/09/17 15:00 23:00 07:00 Intake Total 720 ml 800 ml Output Total 500 ml Balance 220 ml 800 ml TAMERA SCHULTZ III DO Jun 09, 2017 11:12
[2017-06-09] MEDS: BACLOFEN 10 MG TABLET. PO SCH ×3 (11:18→20:29)
[2017-06-09] MEDS ORDERED: CYCLOBENZAPRINE 10 MG TABLET. PO SCH (18:00)
[2017-06-09 20:00] VITALS: BP 131/69
[2017-06-09] MEDS: ATORVASTATIN CALCIUM 20 MG TABLET PO SCH (20:28)
[2017-06-09] MEDS: PRENATAL MULTIVITAMIN TABLET. PO SCH (20:28)
[2017-06-09] MEDS: FAMOTIDINE 20 MG TABLET. PO SCH (20:29)
[2017-06-09] MEDS: CETIRIZINE HCL 10 MG TABLET. PO SCH (20:29)
[2017-06-09 23:30] VITALS: BP 128/60
[2017-06-10 03:42] VITALS: BP 131/72
[2017-06-10 07:34] VITALS: BP 128/58
[2017-06-10] MEDS: ALPRAZolam 0.5 MG TABLET PO PRN ×2 (08:24→17:55)
[2017-06-10] MEDS: oxyCODONE/APAP 10/325 1 TAB TABLET PO PRN ×2 (08:24→13:36)
[2017-06-10] MEDS: LACTOBACILLUS RHAMNOSUS GG 1 CAPSULE. PO SCH ×2 (08:24→21:02)
[2017-06-10] MEDS: PSEUDOEPHEDRINE ER 120 MG TABLET.ER. PO SCH ×2 (08:24→21:02)
[2017-06-10] MEDS: AZITHROMYCIN 250 MG TABLET. PO SCH (08:25)
[2017-06-10] MEDS: PANTOPRAZOLE 40 MG TABLET.DR. PO SCH (08:25)
[2017-06-10] MEDS: BACLOFEN 10 MG TABLET. PO SCH ×3 (08:30→21:02)
[2017-06-10] MEDS: FLUTICASONE 50MCG/NASAL SPRAY 16GM BOTTLE. NS SCH (08:31)
[2017-06-10] MEDS: GABAPENTIN 300 MG CAPSULE. PO SCH ×3 (08:31→21:02)
[2017-06-10] MEDS: DICLOFENAC SODIUM 1% TOPICAL GEL 100GM TUBE. TP SCH ×2 (08:31→21:02)
--- NOTE | 2017-06-10 09:42 | PDOC ---
PROGRESS NOTES Subjective Subjective She still admits right ankle and foot pain. Objective Objective Vital Signs Date Time Temp Pulse Resp B/P (MAP) Pulse Ox O2 Delivery O2 Flow Rate FiO2 06/10/17 07:34 98.3 86 18 128/58 (81) 94 Room Air 98.3 Intake and Output 06/10/17 06:59 Intake Total 1350 ml Output Total 600 ml Balance 750 ml Intake Oral 1350 ml Output Urine Total 600 ml # Voids 1 Physical Exam Physical Exam I saw her keeping her right knee in full extension this AM supine in bed with knee immobilizer in place.She had some difficulty to get up with air cast brace to right ankle. Assessment Assessment Problems Medical Problems: (1) Intractable neuropathic pain of right lower extremity Status: Acute Plan Plan of Care To get her up as tolerated and it may be a good idea to transfer her to SNF as she is making slow progress. Comment Review of Relevant I have reviewed the following items dalila (where applicable) has been applied. Medications Current Medications Hydromorphone HCl (Dilaudid) 1 mg 1X ONCE IV Last administered on 06/04/17 18:36; Start 06/04/17 at 18:30; Stop 06/04/17 at 18:32; Status DC Hydromorphone HCl (Dilaudid) 1 mg 1X ONCE IV Last administered on 06/04/17 19:58; Start 06/04/17 at 20:00; Stop 06/04/17 at 20:01; Status DC Haloperidol Lactate (Haldol) 5 mg 1X ONCE IVP Last administered on 06/05/17 00:39; Start 06/05/17 at 00:15; Stop 06/05/17 at 00:16; Status DC Ondansetron HCl (Zofran) 4 mg PRN Q8HRS PRN IV NAUSEA/VOMITING; Start at 00:00; Stop 06/05/17 at 23:59; Status DC Fentanyl Citrate (Fentanyl 2ml Vial) 50 mcg PRN Q1HR PRN IV PAIN Last administered on 06/05/17 20:44; Start 06/05/17 at 00:00; Stop 06/05/17 at 23 :59; Status DC Acetaminophen (Tylenol) 650 mg PRN Q4HRS PRN PO FEVER Last administered on 10:02; Start 06/05/17 at 00:00; Stop 06/05/17 at 23:59; Status DC Diazepam (Valium) 5 mg 1X ONCE PO Last administered on 06/05/17 18:24; Start 06/05/17 at 14:00; Stop 06/05/17 at 14:01; Status DC Atorvastatin Calcium (Lipitor) 20 mg DAILY PO ; Start 06/06/17 at 09:00; Stop 06/07/17 at 08:54; Status DC Cetirizine HCl (ZyrTEC) 10 mg HS PO Last administered on 06/09/17 20:29; Start 06/05/17 at 21:00 Pseudoephedrine HCl (Sudafed 12-Hour) 120 mg BID PO Last administered on 08:24; Start 06/05/17 at 21:00 Non-Formulary Medication 1 puff PRN Q4HRS PRN INH SHORTNESS OF BREATH; Start 06/05/17 at 16:15; Status UNV Non-Formulary Medication 1 tab DAILY PO ; Start 06/06/17 at 09:00; Status UNV Fluticasone Propionate (Flonase) 2 spray DAILY NS Last administered on 08:31; Start 06/06/17 at 09:00 Non-Formulary Medication 1 tab DAILY PO ; Start 06/06/17 at 09:00; Status UNV Pantoprazole Sodium (Protonix) 40 mg DAILYAC PO Last administered on 08:25; Start 06/06/17 at 07:30 Multivit/ Folic Acid/Iron (Multivitamin ) 1 tab DAILY PO ; Start 06/06/17 at 09:00; Stop 06/07/17 at 08:54; Status DC Famotidine (Pepcid) 20 mg QHS PO Last administered on 06/09/17 20:29; Start 06/05/17 at 21:00 Albuterol Sulfate (Ventolin Neb Soln) 2.5 mg PRN Q6HRS PRN NEB SHORTNESS OF BREATH; Start 06/05/17 at 16:15 Diazepam (Valium) 5 mg 1X ONCE PO Last administered on 06/05/17 18:25; Start 06/05/17 at 18:30; Stop 06/05/17 at 18:31; Status DC Acetaminophen (Tylenol) 650 mg PRN Q6HRS PRN PO HEADACHE; Start 06/06/17 at 03 :00 Oxycodone/ Acetaminophen (Percocet 5/325) 1 tab PRN Q4HRS PRN PO PAIN Last administered on 06/08/17 16:55; Start 06/06/17 at 10:15; Stop 06/08/17 at 18 :25; Status DC Fentanyl Citrate (Fentanyl 2ml Vial) 50 mcg PRN Q2HR PRN IV PAIN Last administered on 06/08/17 04:03; Start 06/06/17 at 10:15 Ketorolac Tromethamine (Toradol) 15 mg PRN Q6HRS PRN IV PAIN; Start 06/06/17 at 10:15; Stop 06/11/17 at 10:14 Atorvastatin Calcium (Lipitor) 20 mg QHS PO Last administered on 06/09/17 20: 28; Start 06/07/17 at 21:00 Multivit/ Folic Acid/Iron (Multivitamin ) 1 tab QHS PO Last administered on 06/09/17 20:28; Start 06/07/17 at 21:00 Diazepam (Valium) 5 mg 1X ONCE PO Last administered on 06/07/17 13:28; Start 06/07/17 at 11:30; Stop 06/07/17 at 11:31; Status DC Azithromycin (Zithromax) 500 mg 1X ONCE PO Last administered on 06/08/17 16: 55; Start 06/08/17 at 15:00; Stop 06/08/17 at 15:01; Status DC Azithromycin (Zithromax) 250 mg DAILY PO Last administered on 06/10/17 08:25 ; Start 06/09/17 at 09:00 Lactobacillus Rhamnosus (Culturelle) 1 cap BID PO Last administered on 08:24; Start 06/08/17 at 21:00 Diclofenac Sodium (Voltaren) 1 chantal BID TP Last administered on 06/10/17 08:31 ; Start 06/08/17 at 21:00 Gabapentin (Neurontin) 300 mg TID PO Last administered on 06/10/17 08:31; Start 06/08/17 at 21:00 Oxycodone/ Acetaminophen (Percocet 10/325) 1 tab PRN Q4HRS PRN PO PAIN Last administered on 06/10/17 08:24; Start 06/08/17 at 18:30 Cyclobenzaprine HCl (Flexeril) 10 mg Q6HRS PO ; Start 06/09/17 at 18:00; Stop 06/09/17 at 18:00; Status DC Alprazolam (Xanax) 0.5 mg PRN Q8HRS PRN PO ANXIETY / AGITATION Last administered on 06/10/17 08:24; Start 06/08/17 at 18:30 Baclofen (Lioresal) 10 mg TID PO Last administered on 06/10/17 08:30; Start 06/09/17 at 10:00 Active Scripts Active Reported Vitamins ( Vits W-Ca,Fe,Fa(<1MG)) 1 Each Tablet 1 Tab PO DAILY Sudafed 12-Hour (Pseudoephedrine Hcl) 120 Mg Tablet.er 1 Tab PO BID Atorvastatin Calcium 20 Mg Tablet 1 Tab PO DAILY Ortho-Novum (Norethindrone-Ethinyl Estrad) 1 Each Tablet 1 Tab PO DAILY Flonase Allergy Relief (Fluticasone Propionate) 9.9 Ml [place].susp 2 Sprays NS DAILY Proair Hfa Inhaler (Albuterol Sulfate) 8.5 Gm Hfa.aer.ad 1 Puff INH PRN Q4HRS PRN Prilosec Otc (Omeprazole Magnesium) 20 Mg Tablet.dr 1 Tab PO DAILY Zantac (Ranitidine Hcl) 300 Mg Tablet 1 Tab PO QHS Zyrtec (Cetirizine Hcl) 10 Mg Tablet 10 Mg PO HS Jayshree-D 24 Hour Tablet (Fexofenadine/Pseudoephedrine) 1 Each Tab.er.24h 1 Tab PO DAILY Vitals/I & O Vital Sign - Last 24 Hours 06/09/17 06/09/17 06/09/17 06/09/17 09:43 11:00 18:47 20:00 Temp 98.0 98.0 Pulse 98 Resp B/P (MAP) 125/66 (85) Pulse Ox 96 O2 Delivery Room Air Room Air Room Air 06/09/17 06/09/17 06/09/17 06/10/17 20:00 20:00 23:30 03:42 Temp 98.6 98.4 97.4 98.6 98.4 97.4 Pulse 92 96 91 Resp 16 16 18 B/P (MAP) 131/69 (89) 128/60 (82) 131/72 (91) Pulse Ox 96 93 94 96 O2 Delivery Room Air Room Air Room Air Room Air 06/10/17 07:34 Temp 98.3 98.3 Pulse 86 Resp 18 B/P (MAP) 128/58 (81) Pulse Ox 94 O2 Delivery Room Air Intake and Output 06/09/17 06/09/17 06/10/17 14:59 22:59 06:59 Intake Total 650 ml 700 ml Output Total 600 ml Balance 650 ml 100 ml KIKI KENNY MD Jun 10, 2017 09:42
[2017-06-10] MEDS: KETOROLAC 15 MG/ML VIAL. IV PRN ×2 (11:07→17:56)
[2017-06-10 11:39] VITALS: BP 132/57
--- NOTE | 2017-06-10 12:50 | PDOC ---
PROGRESS NOTES Chief Complaint Chief Complaint acute right leg pain right nondisplaced proximal fibula fracture right labral tear R trochanteric and hamstring bursitis L3-4 posterior annular tear fibromyalgia obesity, BMI 33 gastroesophageal reflux disease allergies, asthma History of Present Illness History of Present Illness Patient reports continuous pain in R LE and neuropathy in certain positions. She reports difficulty with ambulation and activities of daily life. She reports not feeling like she could be discharged, but is willing to go to a rehab facility once has the ability to recover a bit more and is able to care more for herself independently. Vitals Vitals Vital Signs Date Time Temp Pulse Resp B/P (MAP) Pulse Ox O2 Delivery O2 Flow Rate FiO2 06/10/17 11:39 98.3 125 18 132/57 (82) 94 Room Air 98.3 Physical Exam General: Alert, Oriented X3, Cooperative, mild distress Heart: Regular rate, Normal S1, No murmurs Lungs: Clear Abdomen: Soft Extremities: No clubbing, No cyanosis, No edema, Normal pulses, Other (patient laying supine with R LE in brace ) Skin: No rashes, No breakdown, No significant lesion Review of Systems Review of Systems Patient reports no comfortable position with leg brace on, but her overall pain is improved with it on Patient reports neuropathy in her R great toe Assessment and Plan Assessmemt and Plan Problems Medical Problems: (1) Intractable neuropathic pain of right lower extremity Status: Acute Assessment: acute right leg pain right nondisplaced proximal fibula fracture right labral tear R trochanteric and hamstring bursitis L3-4 posterior annular tear fibromyalgia obesity, BMI 33 gastroesophageal reflux disease allergies, asthma Plan: PRN pain control with narcotics Muscle relaxer Gabapentin PT/OT Home meds Agree with Dr. Garcia's input U eval Recheck labs D/c to U pending Problems: Comment Review of Relevant I have reviewed the following items dalila (where applicable) has been applied. Medications Current Medications Hydromorphone HCl (Dilaudid) 1 mg 1X ONCE IV Last administered on 06/04/17 18:36; Start 06/04/17 at 18:30; Stop 06/04/17 at 18:32; Status DC Hydromorphone HCl (Dilaudid) 1 mg 1X ONCE IV Last administered on 06/04/17 19:58; Start 06/04/17 at 20:00; Stop 06/04/17 at 20:01; Status DC Haloperidol Lactate (Haldol) 5 mg 1X ONCE IVP Last administered on 06/05/17 00:39; Start 06/05/17 at 00:15; Stop 06/05/17 at 00:16; Status DC Ondansetron HCl (Zofran) 4 mg PRN Q8HRS PRN IV NAUSEA/VOMITING; Start at 00:00; Stop 06/05/17 at 23:59; Status DC Fentanyl Citrate (Fentanyl 2ml Vial) 50 mcg PRN Q1HR PRN IV PAIN Last administered on 06/05/17 20:44; Start 06/05/17 at 00:00; Stop 06/05/17 at 23 :59; Status DC Acetaminophen (Tylenol) 650 mg PRN Q4HRS PRN PO FEVER Last administered on 10:02; Start 06/05/17 at 00:00; Stop 06/05/17 at 23:59; Status DC Diazepam (Valium) 5 mg 1X ONCE PO Last administered on 06/05/17 18:24; Start 06/05/17 at 14:00; Stop 06/05/17 at 14:01; Status DC Atorvastatin Calcium (Lipitor) 20 mg DAILY PO ; Start 06/06/17 at 09:00; Stop 06/07/17 at 08:54; Status DC Cetirizine HCl (ZyrTEC) 10 mg HS PO Last administered on 06/09/17 20:29; Start 06/05/17 at 21:00 Pseudoephedrine HCl (Sudafed 12-Hour) 120 mg BID PO Last administered on 08:24; Start 06/05/17 at 21:00 Non-Formulary Medication 1 puff PRN Q4HRS PRN INH SHORTNESS OF BREATH; Start 06/05/17 at 16:15; Status UNV Non-Formulary Medication 1 tab DAILY PO ; Start 06/06/17 at 09:00; Status UNV Fluticasone Propionate (Flonase) 2 spray DAILY NS Last administered on 08:31; Start 06/06/17 at 09:00 Non-Formulary Medication 1 tab DAILY PO ; Start 06/06/17 at 09:00; Status UNV Pantoprazole Sodium (Protonix) 40 mg DAILYAC PO Last administered on 08:25; Start 06/06/17 at 07:30 Multivit/ Folic Acid/Iron (Multivitamin ) 1 tab DAILY PO ; Start 06/06/17 at 09:00; Stop 06/07/17 at 08:54; Status DC Famotidine (Pepcid) 20 mg QHS PO Last administered on 06/09/17 20:29; Start 06/05/17 at 21:00 Albuterol Sulfate (Ventolin Neb Soln) 2.5 mg PRN Q6HRS PRN NEB SHORTNESS OF BREATH; Start 06/05/17 at 16:15 Diazepam (Valium) 5 mg 1X ONCE PO Last administered on 06/05/17 18:25; Start 06/05/17 at 18:30; Stop 06/05/17 at 18:31; Status DC Acetaminophen (Tylenol) 650 mg PRN Q6HRS PRN PO HEADACHE Last administered on 06/10/17 11:07; Start 06/06/17 at 03:00 Oxycodone/ Acetaminophen (Percocet 5/325) 1 tab PRN Q4HRS PRN PO PAIN Last administered on 06/08/17 16:55; Start 06/06/17 at 10:15; Stop 06/08/17 at 18 :25; Status DC Fentanyl Citrate (Fentanyl 2ml Vial) 50 mcg PRN Q2HR PRN IV PAIN Last administered on 06/08/17 04:03; Start 06/06/17 at 10:15 Ketorolac Tromethamine (Toradol) 15 mg PRN Q6HRS PRN IV PAIN Last administered on 06/10/17 11:07; Start 06/06/17 at 10:15; Stop 06/11/17 at 10:14 Atorvastatin Calcium (Lipitor) 20 mg QHS PO Last administered on 06/09/17 20: 28; Start 06/07/17 at 21:00 Multivit/ Folic Acid/Iron (Multivitamin ) 1 tab QHS PO Last administered on 06/09/17 20:28; Start 06/07/17 at 21:00 Diazepam (Valium) 5 mg 1X ONCE PO Last administered on 06/07/17 13:28; Start 06/07/17 at 11:30; Stop 06/07/17 at 11:31; Status DC Azithromycin (Zithromax) 500 mg 1X ONCE PO Last administered on 06/08/17 16: 55; Start 06/08/17 at 15:00; Stop 06/08/17 at 15:01; Status DC Azithromycin (Zithromax) 250 mg DAILY PO Last administered on 06/10/17 08:25 ; Start 06/09/17 at 09:00 Lactobacillus Rhamnosus (Culturelle) 1 cap BID PO Last administered on 08:24; Start 06/08/17 at 21:00 Diclofenac Sodium (Voltaren) 1 chantal BID TP Last administered on 06/10/17 08:31 ; Start 06/08/17 at 21:00 Gabapentin (Neurontin) 300 mg TID PO Last administered on 06/10/17 08:31; Start 06/08/17 at 21:00 Oxycodone/ Acetaminophen (Percocet 10/325) 1 tab PRN Q4HRS PRN PO PAIN Last administered on 06/10/17 08:24; Start 06/08/17 at 18:30 Cyclobenzaprine HCl (Flexeril) 10 mg Q6HRS PO ; Start 06/09/17 at 18:00; Stop 06/09/17 at 18:00; Status DC Alprazolam (Xanax) 0.5 mg PRN Q8HRS PRN PO ANXIETY / AGITATION Last administered on 06/10/17 08:24; Start 06/08/17 at 18:30 Baclofen (Lioresal) 10 mg TID PO Last administered on 06/10/17 08:30; Start 06/09/17 at 10:00 Active Scripts Active Reported Vitamins ( Vits W-Ca,Fe,Fa(<1MG)) 1 Each Tablet 1 Tab PO DAILY Sudafed 12-Hour (Pseudoephedrine Hcl) 120 Mg Tablet.er 1 Tab PO BID Atorvastatin Calcium 20 Mg Tablet 1 Tab PO DAILY Ortho-Novum (Norethindrone-Ethinyl Estrad) 1 Each Tablet 1 Tab PO DAILY Flonase Allergy Relief (Fluticasone Propionate) 9.9 Ml [place].susp 2 Sprays NS DAILY Proair Hfa Inhaler (Albuterol Sulfate) 8.5 Gm Hfa.aer.ad 1 Puff INH PRN Q4HRS PRN Prilosec Otc (Omeprazole Magnesium) 20 Mg Tablet.dr 1 Tab PO DAILY Zantac (Ranitidine Hcl) 300 Mg Tablet 1 Tab PO QHS Zyrtec (Cetirizine Hcl) 10 Mg Tablet 10 Mg PO HS Jayshree-D 24 Hour Tablet (Fexofenadine/Pseudoephedrine) 1 Each Tab.er.24h 1 Tab PO DAILY Vitals/I & O Vital Sign - Last 24 Hours 06/09/17 06/09/17 06/09/17 06/09/17 18:47 20:00 20:00 20:00 Temp 98.6 98.6 Pulse 92 Resp 17 16 B/P (MAP) 131/69 (89) Pulse Ox 96 93 O2 Delivery Room Air Room Air Room Air Room Air 06/09/17 06/10/17 06/10/17 06/10/17 23:30 03:42 07:34 11:39 Temp 98.4 97.4 98.3 98.3 98.4 97.4 98.3 98.3 Pulse 96 91 86 125 Resp 16 18 18 18 B/P (MAP) 128/60 (82) 131/72 (91) 128/58 (81) 132/57 (82) Pulse Ox 94 96 94 94 O2 Delivery Room Air Room Air Room Air Room Air Intake and Output 06/09/17 06/09/17 06/10/17 15:00 23:00 07:00 Intake Total 650 ml 700 ml Output Total 600 ml Balance 650 ml 100 ml TAMERA SCHULTZ III DO Jun 10, 2017 12:50
[2017-06-10 15:00] VITALS: BP 129/79
[2017-06-10 19:16] VITALS: BP 117/70
[2017-06-10] MEDS: ATORVASTATIN CALCIUM 20 MG TABLET PO SCH (21:02)
[2017-06-10] MEDS: FAMOTIDINE 20 MG TABLET. PO SCH (21:02)
[2017-06-10] MEDS: CETIRIZINE HCL 10 MG TABLET. PO SCH (21:02)
[2017-06-10] MEDS: PRENATAL MULTIVITAMIN TABLET. PO SCH (21:02)
[2017-06-10] MEDS: ENOXAPARIN 40 MG/0.4 ML SYRINGE. SQ SCH (21:03)
[2017-06-10 23:00] VITALS: BP 126/56
[2017-06-11] MEDS: oxyCODONE/APAP 10/325 1 TAB TABLET PO PRN ×4 (03:10→20:18)
[2017-06-11 03:30] VITALS: BP 126/73
[2017-06-11 05:08] LABS: BASO # 0.1 x10^3/uL (0.0-0.2); BASO % 1 % (0-3); EOS % 7 % (0-3); LYMPH # 4.3 x10^3/uL (1.0-4.8); LYMPH % 48 % (24-48); MEAN CORPUSCULAR HEMOGLOBIN 31 pg (25-35); MEAN CORPUSCULAR HGB CONC 33 g/dL (31-37); MEAN CORPUSCULAR VOLUME 94 fL (79-100); MONO % 12 % (0-9); NEUT % 33 % (31-73); PLATELET COUNT 480 x10^3/uL (140-400); RED BLOOD COUNT 4.46 x10^6/uL (3.50-5.40); RED CELL DISTRIBUTION WIDTH 13.4 % (11.5-14.5); WHITE BLOOD COUNT 9.1 x10^3/uL (4.0-11.0)
[2017-06-11 05:56] LABS: ALBUMIN 3.1 g/dL (3.4-5.0); ALBUMIN/GLOBULIN RATIO 0.8 (1.0-1.7); CALCIUM 8.2 mg/dL (8.5-10.1); CREATININE 0.7 mg/dL (0.6-1.0); GFR 89.3; POTASSIUM 3.8 mmol/L (3.5-5.1); TOTAL BILIRUBIN 0.2 mg/dL (0.2-1.0)
[2017-06-11 07:00] VITALS: BP 118/72
[2017-06-11] MEDS: DICLOFENAC SODIUM 1% TOPICAL GEL 100GM TUBE. TP SCH ×2 (09:00→20:03)
[2017-06-11] MEDS: PSEUDOEPHEDRINE ER 120 MG TABLET.ER. PO SCH ×2 (09:36→20:01)
[2017-06-11] MEDS: BACLOFEN 10 MG TABLET. PO SCH ×3 (09:36→20:02)
[2017-06-11] MEDS: AZITHROMYCIN 250 MG TABLET. PO SCH (09:36)
[2017-06-11] MEDS: GABAPENTIN 300 MG CAPSULE. PO SCH ×3 (09:36→20:02)
[2017-06-11] MEDS: FLUTICASONE 50MCG/NASAL SPRAY 16GM BOTTLE. NS SCH (09:37)
[2017-06-11] MEDS: PANTOPRAZOLE 40 MG TABLET.DR. PO SCH (09:37)
[2017-06-11] MEDS: LACTOBACILLUS RHAMNOSUS GG 1 CAPSULE. PO SCH ×2 (09:40→20:02)
--- NOTE | 2017-06-11 10:34 | PDOC ---
PROGRESS NOTES Subjective Subjective She had no new complaints. Objective Objective Vital Signs Date Time Temp Pulse Resp B/P (MAP) Pulse Ox O2 Delivery O2 Flow Rate FiO2 06/11/17 09:36 96 Room Air 06/11/17 07:00 98.2 65 18 118/72 (87) 98.2 Intake and Output 06/11/17 07:00 Intake Total 200 ml Output Total 200 ml Balance 0 ml Intake Oral 200 ml Output Urine Total 200 ml # Voids 1 Physical Exam Physical Exam She is alert,sitting in bedside chair with right knee immobilizer and air cast brace in place to her right ankle without shoe.She did walk with physical therapy yesterday. Assessment Assessment Problems Medical Problems: (1) Intractable neuropathic pain of right lower extremity Status: Acute Plan Plan of Care She is making progress but not going to be ready to go home in the next day or two. To SNF when medically stable. Comment Review of Relevant I have reviewed the following items dalila (where applicable) has been applied. Labs Laboratory Tests Test 06/11/17 03:55 White Blood Count 9.1 x10^3/uL (4.0-11.0) Red Blood Count 4.46 x10^6/uL (3.50-5.40) Hemoglobin 14.0 g/dL (12.0-15.5) Hematocrit 42.0 % (36.0-47.0) Mean Corpuscular Volume 94 fL (79-100) Mean Corpuscular Hemoglobin 31 pg (25-35) Mean Corpuscular Hemoglobin Concent 33 g/dL (31-37) Red Cell Distribution Width 13.4 % (11.5-14.5) Platelet Count 480 x10^3/uL (140-400) Neutrophils (%) (Auto) 33 % (31-73) Lymphocytes (%) (Auto) 48 % (24-48) Monocytes (%) (Auto) 12 % (0-9) Eosinophils (%) (Auto) 7 % (0-3) Basophils (%) (Auto) 1 % (0-3) Neutrophils # (Auto) 3.0 x10^3uL (1.8-7.7) Lymphocytes # (Auto) 4.3 x10^3/uL (1.0-4.8) Monocytes # (Auto) 1.1 x10^3/uL (0.0-1.1) Eosinophils # (Auto) 0.6 x10^3/uL (0.0-0.7) Basophils # (Auto) 0.1 x10^3/uL (0.0-0.2) Sodium Level 138 mmol/L (136-145) Potassium Level 3.8 mmol/L (3.5-5.1) Chloride Level 100 mmol/L (98-107) Carbon Dioxide Level 26 mmol/L (21-32) Anion Gap 12 (6-14) Blood Urea Nitrogen 17 mg/dL (7-20) Creatinine 0.7 mg/dL (0.6-1.0) Estimated GFR (Cockcroft-Gault) 89.3 BUN/Creatinine Ratio 24 (6-20) Glucose Level 86 mg/dL (70-99) Calcium Level 8.2 mg/dL (8.5-10.1) Total Bilirubin 0.2 mg/dL (0.2-1.0) Aspartate Amino Transf (AST/SGOT) 44 U/L (15-37) Alanine Aminotransferase (ALT/SGPT) 60 U/L (14-59) Alkaline Phosphatase 67 U/L (46-116) Total Protein 7.0 g/dL (6.4-8.2) Albumin 3.1 g/dL (3.4-5.0) Albumin/Globulin Ratio 0.8 (1.0-1.7) Laboratory Tests Test 06/11/17 03:55 White Blood Count 9.1 x10^3/uL (4.0-11.0) Red Blood Count 4.46 x10^6/uL (3.50-5.40) Hemoglobin 14.0 g/dL (12.0-15.5) Hematocrit 42.0 % (36.0-47.0) Mean Corpuscular Volume 94 fL (79-100) Mean Corpuscular Hemoglobin 31 pg (25-35) Mean Corpuscular Hemoglobin Concent 33 g/dL (31-37) Red Cell Distribution Width 13.4 % (11.5-14.5) Platelet Count 480 x10^3/uL (140-400) Neutrophils (%) (Auto) 33 % (31-73) Lymphocytes (%) (Auto) 48 % (24-48) Monocytes (%) (Auto) 12 % (0-9) Eosinophils (%) (Auto) 7 % (0-3) Basophils (%) (Auto) 1 % (0-3) Neutrophils # (Auto) 3.0 x10^3uL (1.8-7.7) Lymphocytes # (Auto) 4.3 x10^3/uL (1.0-4.8) Monocytes # (Auto) 1.1 x10^3/uL (0.0-1.1) Eosinophils # (Auto) 0.6 x10^3/uL (0.0-0.7) Basophils # (Auto) 0.1 x10^3/uL (0.0-0.2) Sodium Level 138 mmol/L (136-145) Potassium Level 3.8 mmol/L (3.5-5.1) Chloride Level 100 mmol/L (98-107) Carbon Dioxide Level 26 mmol/L (21-32) Anion Gap 12 (6-14) Blood Urea Nitrogen 17 mg/dL (7-20) Creatinine 0.7 mg/dL (0.6-1.0) Estimated GFR (Cockcroft-Gault) 89.3 BUN/Creatinine Ratio 24 (6-20) Glucose Level 86 mg/dL (70-99) Calcium Level 8.2 mg/dL (8.5-10.1) Total Bilirubin 0.2 mg/dL (0.2-1.0) Aspartate Amino Transf (AST/SGOT) 44 U/L (15-37) Alanine Aminotransferase (ALT/SGPT) 60 U/L (14-59) Alkaline Phosphatase 67 U/L (46-116) Total Protein 7.0 g/dL (6.4-8.2) Albumin 3.1 g/dL (3.4-5.0) Albumin/Globulin Ratio 0.8 (1.0-1.7) Medications Current Medications Hydromorphone HCl (Dilaudid) 1 mg 1X ONCE IV Last administered on 06/04/17 18:36; Start 06/04/17 at 18:30; Stop 06/04/17 at 18:32; Status DC Hydromorphone HCl (Dilaudid) 1 mg 1X ONCE IV Last administered on 06/04/17 19:58; Start 06/04/17 at 20:00; Stop 06/04/17 at 20:01; Status DC Haloperidol Lactate (Haldol) 5 mg 1X ONCE IVP Last administered on 06/05/17 00:39; Start 06/05/17 at 00:15; Stop 06/05/17 at 00:16; Status DC Ondansetron HCl (Zofran) 4 mg PRN Q8HRS PRN IV NAUSEA/VOMITING; Start at 00:00; Stop 06/05/17 at 23:59; Status DC Fentanyl Citrate (Fentanyl 2ml Vial) 50 mcg PRN Q1HR PRN IV PAIN Last administered on 06/05/17 20:44; Start 06/05/17 at 00:00; Stop 06/05/17 at 23 :59; Status DC Acetaminophen (Tylenol) 650 mg PRN Q4HRS PRN PO FEVER Last administered on 10:02; Start 06/05/17 at 00:00; Stop 06/05/17 at 23:59; Status DC Diazepam (Valium) 5 mg 1X ONCE PO Last administered on 06/05/17 18:24; Start 06/05/17 at 14:00; Stop 06/05/17 at 14:01; Status DC Atorvastatin Calcium (Lipitor) 20 mg DAILY PO ; Start 06/06/17 at 09:00; Stop 06/07/17 at 08:54; Status DC Cetirizine HCl (ZyrTEC) 10 mg HS PO Last administered on 06/10/17 21:02; Start 06/05/17 at 21:00 Pseudoephedrine HCl (Sudafed 12-Hour) 120 mg BID PO Last administered on 09:36; Start 06/05/17 at 21:00 Non-Formulary Medication 1 puff PRN Q4HRS PRN INH SHORTNESS OF BREATH; Start 06/05/17 at 16:15; Status UNV Non-Formulary Medication 1 tab DAILY PO ; Start 06/06/17 at 09:00; Status UNV Fluticasone Propionate (Flonase) 2 spray DAILY NS Last administered on 09:37; Start 06/06/17 at 09:00 Non-Formulary Medication 1 tab DAILY PO ; Start 06/06/17 at 09:00; Status UNV Pantoprazole Sodium (Protonix) 40 mg DAILYAC PO Last administered on 09:37; Start 06/06/17 at 07:30 Multivit/ Folic Acid/Iron (Multivitamin ) 1 tab DAILY PO ; Start 06/06/17 at 09:00; Stop 06/07/17 at 08:54; Status DC Famotidine (Pepcid) 20 mg QHS PO Last administered on 06/10/17 21:02; Start 06/05/17 at 21:00 Albuterol Sulfate (Ventolin Neb Soln) 2.5 mg PRN Q6HRS PRN NEB SHORTNESS OF BREATH; Start 06/05/17 at 16:15 Diazepam (Valium) 5 mg 1X ONCE PO Last administered on 06/05/17 18:25; Start 06/05/17 at 18:30; Stop 06/05/17 at 18:31; Status DC Acetaminophen (Tylenol) 650 mg PRN Q6HRS PRN PO HEADACHE Last administered on 06/10/17 11:07; Start 06/06/17 at 03:00 Oxycodone/ Acetaminophen (Percocet 5/325) 1 tab PRN Q4HRS PRN PO PAIN Last administered on 06/08/17 16:55; Start 06/06/17 at 10:15; Stop 06/08/17 at 18 :25; Status DC Fentanyl Citrate (Fentanyl 2ml Vial) 50 mcg PRN Q2HR PRN IV PAIN Last administered on 06/08/17 04:03; Start 06/06/17 at 10:15 Ketorolac Tromethamine (Toradol) 15 mg PRN Q6HRS PRN IV PAIN Last administered on 06/10/17 17:56; Start 06/06/17 at 10:15; Stop 06/11/17 at 10:14; Status DC Atorvastatin Calcium (Lipitor) 20 mg QHS PO Last administered on 06/10/17 21: 02; Start 06/07/17 at 21:00 Multivit/ Folic Acid/Iron (Multivitamin ) 1 tab QHS PO Last administered on 06/10/17 21:02; Start 06/07/17 at 21:00 Diazepam (Valium) 5 mg 1X ONCE PO Last administered on 06/07/17 13:28; Start 06/07/17 at 11:30; Stop 06/07/17 at 11:31; Status DC Azithromycin (Zithromax) 500 mg 1X ONCE PO Last administered on 06/08/17 16: 55; Start 06/08/17 at 15:00; Stop 06/08/17 at 15:01; Status DC Azithromycin (Zithromax) 250 mg DAILY PO Last administered on 06/11/17 09:36 ; Start 06/09/17 at 09:00 Lactobacillus Rhamnosus (Culturelle) 1 cap BID PO Last administered on 09:40; Start 06/08/17 at 21:00 Diclofenac Sodium (Voltaren) 1 chantal BID TP Last administered on 06/10/17 21:02 ; Start 06/08/17 at 21:00 Gabapentin (Neurontin) 300 mg TID PO Last administered on 06/11/17 09:36; Start 06/08/17 at 21:00 Oxycodone/ Acetaminophen (Percocet 10/325) 1 tab PRN Q4HRS PRN PO PAIN Last administered on 06/11/17 09:36; Start 06/08/17 at 18:30 Cyclobenzaprine HCl (Flexeril) 10 mg Q6HRS PO ; Start 06/09/17 at 18:00; Stop 06/09/17 at 18:00; Status DC Alprazolam (Xanax) 0.5 mg PRN Q8HRS PRN PO ANXIETY / AGITATION Last administered on 06/10/17 17:55; Start 06/08/17 at 18:30 Baclofen (Lioresal) 10 mg TID PO Last administered on 06/11/17 09:36; Start 06/09/17 at 10:00 Enoxaparin Sodium (Lovenox 40mg Syringe) 40 mg Q24H SQ Last administered on 21:03; Start 06/10/17 at 21:00 Active Scripts Active Reported Vitamins ( Vits W-Ca,Fe,Fa(<1MG)) 1 Each Tablet 1 Tab PO DAILY Sudafed 12-Hour (Pseudoephedrine Hcl) 120 Mg Tablet.er 1 Tab PO BID Atorvastatin Calcium 20 Mg Tablet 1 Tab PO DAILY Ortho-Novum (Norethindrone-Ethinyl Estrad) 1 Each Tablet 1 Tab PO DAILY Flonase Allergy Relief (Fluticasone Propionate) 9.9 Ml [place].susp 2 Sprays NS DAILY Proair Hfa Inhaler (Albuterol Sulfate) 8.5 Gm Hfa.aer.ad 1 Puff INH PRN Q4HRS PRN Prilosec Otc (Omeprazole Magnesium) 20 Mg Tablet.dr 1 Tab PO DAILY Zantac (Ranitidine Hcl) 300 Mg Tablet 1 Tab PO QHS Zyrtec (Cetirizine Hcl) 10 Mg Tablet 10 Mg PO HS Jayshree-D 24 Hour Tablet (Fexofenadine/Pseudoephedrine) 1 Each Tab.er.24h 1 Tab PO DAILY Vitals/I & O Vital Sign - Last 24 Hours 06/10/17 06/10/17 06/10/17 06/10/17 11:39 15:00 19:16 20:00 Temp 98.3 97.5 98.2 98.3 97.5 98.2 Pulse 125 113 112 Resp 18 20 18 B/P (MAP) 132/57 (82) 129/79 (96) 117/70 (86) Pulse Ox 94 92 95 O2 Delivery Room Air Room Air Room Air Room Air 06/10/17 06/11/17 06/11/17 06/11/17 23:00 03:10 03:30 04:20 Temp 97.7 98.6 97.7 98.6 Pulse 109 97 Resp 18 18 B/P (MAP) 126/56 (79) 126/73 (90) Pulse Ox 98 98 96 96 O2 Delivery Room Air Room Air Room Air Room Air 06/11/17 06/11/17 06/11/17 07:00 07:53 09:36 Temp 98.2 98.2 Pulse 65 Resp 18 B/P (MAP) 118/72 (87) Pulse Ox 96 96 O2 Delivery Room Air Room Air Room Air Intake and Output 06/10/17 06/10/17 06/11/17 15:00 23:00 07:00 Intake Total 200 ml Output Total 200 ml Balance 200 ml -200 ml KIKI KENNY MD Jun 11, 2017 10:33
--- NOTE | 2017-06-11 10:40 | PDOC ---
PROGRESS NOTES Chief Complaint Chief Complaint acute right leg pain right nondisplaced proximal fibula fracture right labral tear R trochanteric and hamstring bursitis L3-4 posterior annular tear fibromyalgia obesity, BMI 33 gastroesophageal reflux disease allergies, asthma History of Present Illness History of Present Illness Patient reports continuous pain in R LE. She reports difficulty with ambulation and activities of daily life. She reports feeling like she could be discharged, but would prefer a rehab facility. Vitals Vitals Vital Signs Date Time Temp Pulse Resp B/P (MAP) Pulse Ox O2 Delivery O2 Flow Rate FiO2 06/11/17 09:36 96 Room Air 06/11/17 07:00 98.2 65 18 118/72 (87) 98.2 Physical Exam General: Alert, Oriented X3, Cooperative, mild distress Heart: Regular rate, Normal S1, No murmurs Lungs: Clear Abdomen: Soft Extremities: No clubbing, No cyanosis, No edema, Normal pulses, Other (patient laying supine with R LE in brace ) Skin: No rashes, No breakdown, No significant lesion Labs LABS Laboratory Tests Test 06/11/17 03:55 White Blood Count 9.1 x10^3/uL (4.0-11.0) Red Blood Count 4.46 x10^6/uL (3.50-5.40) Hemoglobin 14.0 g/dL (12.0-15.5) Hematocrit 42.0 % (36.0-47.0) Mean Corpuscular Volume 94 fL (79-100) Mean Corpuscular Hemoglobin 31 pg (25-35) Mean Corpuscular Hemoglobin Concent 33 g/dL (31-37) Red Cell Distribution Width 13.4 % (11.5-14.5) Platelet Count 480 x10^3/uL (140-400) Neutrophils (%) (Auto) 33 % (31-73) Lymphocytes (%) (Auto) 48 % (24-48) Monocytes (%) (Auto) 12 % (0-9) Eosinophils (%) (Auto) 7 % (0-3) Basophils (%) (Auto) 1 % (0-3) Neutrophils # (Auto) 3.0 x10^3uL (1.8-7.7) Lymphocytes # (Auto) 4.3 x10^3/uL (1.0-4.8) Monocytes # (Auto) 1.1 x10^3/uL (0.0-1.1) Eosinophils # (Auto) 0.6 x10^3/uL (0.0-0.7) Basophils # (Auto) 0.1 x10^3/uL (0.0-0.2) Sodium Level 138 mmol/L (136-145) Potassium Level 3.8 mmol/L (3.5-5.1) Chloride Level 100 mmol/L (98-107) Carbon Dioxide Level 26 mmol/L (21-32) Anion Gap 12 (6-14) Blood Urea Nitrogen 17 mg/dL (7-20) Creatinine 0.7 mg/dL (0.6-1.0) Estimated GFR (Cockcroft-Gault) 89.3 BUN/Creatinine Ratio 24 (6-20) Glucose Level 86 mg/dL (70-99) Calcium Level 8.2 mg/dL (8.5-10.1) Total Bilirubin 0.2 mg/dL (0.2-1.0) Aspartate Amino Transf (AST/SGOT) 44 U/L (15-37) Alanine Aminotransferase (ALT/SGPT) 60 U/L (14-59) Alkaline Phosphatase 67 U/L (46-116) Total Protein 7.0 g/dL (6.4-8.2) Albumin 3.1 g/dL (3.4-5.0) Albumin/Globulin Ratio 0.8 (1.0-1.7) Review of Systems Review of Systems Patient reports R LE muscle weakness R LE pain Assessment and Plan Assessmemt and Plan Problems Medical Problems: (1) Intractable neuropathic pain of right lower extremity Status: Acute Assessment: acute right leg pain right nondisplaced proximal fibula fracture right labral tear R trochanteric and hamstring bursitis L3-4 posterior annular tear fibromyalgia obesity, BMI 33 gastroesophageal reflux disease allergies, asthma Plan: PT/OT Appreciate subspecialist input MAR evaluation Home meds Pain control with narcotics Discharge to rehab facility if placement available Problems: Comment Review of Relevant I have reviewed the following items dalila (where applicable) has been applied. Labs Laboratory Tests Test 06/11/17 03:55 White Blood Count 9.1 x10^3/uL (4.0-11.0) Red Blood Count 4.46 x10^6/uL (3.50-5.40) Hemoglobin 14.0 g/dL (12.0-15.5) Hematocrit 42.0 % (36.0-47.0) Mean Corpuscular Volume 94 fL (79-100) Mean Corpuscular Hemoglobin 31 pg (25-35) Mean Corpuscular Hemoglobin Concent 33 g/dL (31-37) Red Cell Distribution Width 13.4 % (11.5-14.5) Platelet Count 480 x10^3/uL (140-400) Neutrophils (%) (Auto) 33 % (31-73) Lymphocytes (%) (Auto) 48 % (24-48) Monocytes (%) (Auto) 12 % (0-9) Eosinophils (%) (Auto) 7 % (0-3) Basophils (%) (Auto) 1 % (0-3) Neutrophils # (Auto) 3.0 x10^3uL (1.8-7.7) Lymphocytes # (Auto) 4.3 x10^3/uL (1.0-4.8) Monocytes # (Auto) 1.1 x10^3/uL (0.0-1.1) Eosinophils # (Auto) 0.6 x10^3/uL (0.0-0.7) Basophils # (Auto) 0.1 x10^3/uL (0.0-0.2) Sodium Level 138 mmol/L (136-145) Potassium Level 3.8 mmol/L (3.5-5.1) Chloride Level 100 mmol/L (98-107) Carbon Dioxide Level 26 mmol/L (21-32) Anion Gap 12 (6-14) Blood Urea Nitrogen 17 mg/dL (7-20) Creatinine 0.7 mg/dL (0.6-1.0) Estimated GFR (Cockcroft-Gault) 89.3 BUN/Creatinine Ratio 24 (6-20) Glucose Level 86 mg/dL (70-99) Calcium Level 8.2 mg/dL (8.5-10.1) Total Bilirubin 0.2 mg/dL (0.2-1.0) Aspartate Amino Transf (AST/SGOT) 44 U/L (15-37) Alanine Aminotransferase (ALT/SGPT) 60 U/L (14-59) Alkaline Phosphatase 67 U/L (46-116) Total Protein 7.0 g/dL (6.4-8.2) Albumin 3.1 g/dL (3.4-5.0) Albumin/Globulin Ratio 0.8 (1.0-1.7) Laboratory Tests Test 06/11/17 03:55 White Blood Count 9.1 x10^3/uL (4.0-11.0) Red Blood Count 4.46 x10^6/uL (3.50-5.40) Hemoglobin 14.0 g/dL (12.0-15.5) Hematocrit 42.0 % (36.0-47.0) Mean Corpuscular Volume 94 fL (79-100) Mean Corpuscular Hemoglobin 31 pg (25-35) Mean Corpuscular Hemoglobin Concent 33 g/dL (31-37) Red Cell Distribution Width 13.4 % (11.5-14.5) Platelet Count 480 x10^3/uL (140-400) Neutrophils (%) (Auto) 33 % (31-73) Lymphocytes (%) (Auto) 48 % (24-48) Monocytes (%) (Auto) 12 % (0-9) Eosinophils (%) (Auto) 7 % (0-3) Basophils (%) (Auto) 1 % (0-3) Neutrophils # (Auto) 3.0 x10^3uL (1.8-7.7) Lymphocytes # (Auto) 4.3 x10^3/uL (1.0-4.8) Monocytes # (Auto) 1.1 x10^3/uL (0.0-1.1) Eosinophils # (Auto) 0.6 x10^3/uL (0.0-0.7) Basophils # (Auto) 0.1 x10^3/uL (0.0-0.2) Sodium Level 138 mmol/L (136-145) Potassium Level 3.8 mmol/L (3.5-5.1) Chloride Level 100 mmol/L (98-107) Carbon Dioxide Level 26 mmol/L (21-32) Anion Gap 12 (6-14) Blood Urea Nitrogen 17 mg/dL (7-20) Creatinine 0.7 mg/dL (0.6-1.0) Estimated GFR (Cockcroft-Gault) 89.3 BUN/Creatinine Ratio 24 (6-20) Glucose Level 86 mg/dL (70-99) Calcium Level 8.2 mg/dL (8.5-10.1) Total Bilirubin 0.2 mg/dL (0.2-1.0) Aspartate Amino Transf (AST/SGOT) 44 U/L (15-37) Alanine Aminotransferase (ALT/SGPT) 60 U/L (14-59) Alkaline Phosphatase 67 U/L (46-116) Total Protein 7.0 g/dL (6.4-8.2) Albumin 3.1 g/dL (3.4-5.0) Albumin/Globulin Ratio 0.8 (1.0-1.7) Medications Current Medications Hydromorphone HCl (Dilaudid) 1 mg 1X ONCE IV Last administered on 06/04/17 18:36; Start 06/04/17 at 18:30; Stop 06/04/17 at 18:32; Status DC Hydromorphone HCl (Dilaudid) 1 mg 1X ONCE IV Last administered on 06/04/17 19:58; Start 06/04/17 at 20:00; Stop 06/04/17 at 20:01; Status DC Haloperidol Lactate (Haldol) 5 mg 1X ONCE IVP Last administered on 06/05/17 00:39; Start 06/05/17 at 00:15; Stop 06/05/17 at 00:16; Status DC Ondansetron HCl (Zofran) 4 mg PRN Q8HRS PRN IV NAUSEA/VOMITING; Start at 00:00; Stop 06/05/17 at 23:59; Status DC Fentanyl Citrate (Fentanyl 2ml Vial) 50 mcg PRN Q1HR PRN IV PAIN Last administered on 06/05/17 20:44; Start 06/05/17 at 00:00; Stop 06/05/17 at 23 :59; Status DC Acetaminophen (Tylenol) 650 mg PRN Q4HRS PRN PO FEVER Last administered on 10:02; Start 06/05/17 at 00:00; Stop 06/05/17 at 23:59; Status DC Diazepam (Valium) 5 mg 1X ONCE PO Last administered on 06/05/17 18:24; Start 06/05/17 at 14:00; Stop 06/05/17 at 14:01; Status DC Atorvastatin Calcium (Lipitor) 20 mg DAILY PO ; Start 06/06/17 at 09:00; Stop 06/07/17 at 08:54; Status DC Cetirizine HCl (ZyrTEC) 10 mg HS PO Last administered on 06/10/17 21:02; Start 06/05/17 at 21:00 Pseudoephedrine HCl (Sudafed 12-Hour) 120 mg BID PO Last administered on 09:36; Start 06/05/17 at 21:00 Non-Formulary Medication 1 puff PRN Q4HRS PRN INH SHORTNESS OF BREATH; Start 06/05/17 at 16:15; Status UNV Non-Formulary Medication 1 tab DAILY PO ; Start 06/06/17 at 09:00; Status UNV Fluticasone Propionate (Flonase) 2 spray DAILY NS Last administered on 09:37; Start 06/06/17 at 09:00 Non-Formulary Medication 1 tab DAILY PO ; Start 06/06/17 at 09:00; Status UNV Pantoprazole Sodium (Protonix) 40 mg DAILYAC PO Last administered on 09:37; Start 06/06/17 at 07:30 Multivit/ Folic Acid/Iron (Multivitamin ) 1 tab DAILY PO ; Start 06/06/17 at 09:00; Stop 06/07/17 at 08:54; Status DC Famotidine (Pepcid) 20 mg QHS PO Last administered on 06/10/17 21:02; Start 06/05/17 at 21:00 Albuterol Sulfate (Ventolin Neb Soln) 2.5 mg PRN Q6HRS PRN NEB SHORTNESS OF BREATH; Start 06/05/17 at 16:15 Diazepam (Valium) 5 mg 1X ONCE PO Last administered on 06/05/17 18:25; Start 06/05/17 at 18:30; Stop 06/05/17 at 18:31; Status DC Acetaminophen (Tylenol) 650 mg PRN Q6HRS PRN PO HEADACHE Last administered on 06/10/17 11:07; Start 06/06/17 at 03:00 Oxycodone/ Acetaminophen (Percocet 5/325) 1 tab PRN Q4HRS PRN PO PAIN Last administered on 06/08/17 16:55; Start 06/06/17 at 10:15; Stop 06/08/17 at 18 :25; Status DC Fentanyl Citrate (Fentanyl 2ml Vial) 50 mcg PRN Q2HR PRN IV PAIN Last administered on 06/08/17 04:03; Start 06/06/17 at 10:15 Ketorolac Tromethamine (Toradol) 15 mg PRN Q6HRS PRN IV PAIN Last administered on 06/10/17 17:56; Start 06/06/17 at 10:15; Stop 06/11/17 at 10:14; Status DC Atorvastatin Calcium (Lipitor) 20 mg QHS PO Last administered on 06/10/17 21: 02; Start 06/07/17 at 21:00 Multivit/ Folic Acid/Iron (Multivitamin ) 1 tab QHS PO Last administered on 06/10/17 21:02; Start 06/07/17 at 21:00 Diazepam (Valium) 5 mg 1X ONCE PO Last administered on 06/07/17 13:28; Start 06/07/17 at 11:30; Stop 06/07/17 at 11:31; Status DC Azithromycin (Zithromax) 500 mg 1X ONCE PO Last administered on 06/08/17 16: 55; Start 06/08/17 at 15:00; Stop 06/08/17 at 15:01; Status DC Azithromycin (Zithromax) 250 mg DAILY PO Last administered on 06/11/17 09:36 ; Start 06/09/17 at 09:00 Lactobacillus Rhamnosus (Culturelle) 1 cap BID PO Last administered on 09:40; Start 06/08/17 at 21:00 Diclofenac Sodium (Voltaren) 1 chantal BID TP Last administered on 06/10/17 21:02 ; Start 06/08/17 at 21:00 Gabapentin (Neurontin) 300 mg TID PO Last administered on 06/11/17 09:36; Start 06/08/17 at 21:00 Oxycodone/ Acetaminophen (Percocet 10/325) 1 tab PRN Q4HRS PRN PO PAIN Last administered on 06/11/17 09:36; Start 06/08/17 at 18:30 Cyclobenzaprine HCl (Flexeril) 10 mg Q6HRS PO ; Start 06/09/17 at 18:00; Stop 06/09/17 at 18:00; Status DC Alprazolam (Xanax) 0.5 mg PRN Q8HRS PRN PO ANXIETY / AGITATION Last administered on 06/10/17 17:55; Start 06/08/17 at 18:30 Baclofen (Lioresal) 10 mg TID PO Last administered on 06/11/17 09:36; Start 06/09/17 at 10:00 Enoxaparin Sodium (Lovenox 40mg Syringe) 40 mg Q24H SQ Last administered on 21:03; Start 06/10/17 at 21:00 Active Scripts Active Reported Vitamins ( Vits W-Ca,Fe,Fa(<1MG)) 1 Each Tablet 1 Tab PO DAILY Sudafed 12-Hour (Pseudoephedrine Hcl) 120 Mg Tablet.er 1 Tab PO BID Atorvastatin Calcium 20 Mg Tablet 1 Tab PO DAILY Ortho-Novum (Norethindrone-Ethinyl Estrad) 1 Each Tablet 1 Tab PO DAILY Flonase Allergy Relief (Fluticasone Propionate) 9.9 Ml [place].susp 2 Sprays NS DAILY Proair Hfa Inhaler (Albuterol Sulfate) 8.5 Gm Hfa.aer.ad 1 Puff INH PRN Q4HRS PRN Prilosec Otc (Omeprazole Magnesium) 20 Mg Tablet.dr 1 Tab PO DAILY Zantac (Ranitidine Hcl) 300 Mg Tablet 1 Tab PO QHS Zyrtec (Cetirizine Hcl) 10 Mg Tablet 10 Mg PO HS Jayshree-D 24 Hour Tablet (Fexofenadine/Pseudoephedrine) 1 Each Tab.er.24h 1 Tab PO DAILY Vitals/I & O Vital Sign - Last 24 Hours 06/10/17 06/10/17 06/10/17 06/10/17 11:39 15:00 19:16 20:00 Temp 98.3 97.5 98.2 98.3 97.5 98.2 Pulse 125 113 112 Resp 18 20 18 B/P (MAP) 132/57 (82) 129/79 (96) 117/70 (86) Pulse Ox 94 92 95 O2 Delivery Room Air Room Air Room Air Room Air 06/10/17 06/11/17 06/11/17 06/11/17 23:00 03:10 03:30 04:20 Temp 97.7 98.6 97.7 98.6 Pulse 109 97 Resp 18 18 B/P (MAP) 126/56 (79) 126/73 (90) Pulse Ox 98 98 96 96 O2 Delivery Room Air Room Air Room Air Room Air 06/11/17 06/11/17 06/11/17 07:00 07:53 09:36 Temp 98.2 98.2 Pulse 65 Resp 18 B/P (MAP) 118/72 (87) Pulse Ox 96 96 O2 Delivery Room Air Room Air Room Air Intake and Output 06/10/17 06/10/17 06/11/17 14:59 22:59 06:59 Intake Total 200 ml Output Total 200 ml Balance 200 ml -200 ml TAMERA SCHULTZ III DO Jun 11, 2017 10:40
[2017-06-11 11:00] VITALS: BP 135/81
[2017-06-11 15:00] VITALS: BP 122/69
[2017-06-11 19:20] VITALS: BP 113/62
[2017-06-11] MEDS: PRENATAL MULTIVITAMIN TABLET. PO SCH (20:01)
[2017-06-11] MEDS: CETIRIZINE HCL 10 MG TABLET. PO SCH (20:02)
[2017-06-11] MEDS: ATORVASTATIN CALCIUM 20 MG TABLET PO SCH (20:02)
[2017-06-11] MEDS: FAMOTIDINE 20 MG TABLET. PO SCH (20:03)
[2017-06-11] MEDS: ENOXAPARIN 40 MG/0.4 ML SYRINGE. SQ SCH (20:07)
[2017-06-11 23:20] VITALS: BP 153/79
[2017-06-12 03:00] VITALS: BP 132/83
[2017-06-12] MEDS: oxyCODONE/APAP 10/325 1 TAB TABLET PO PRN ×3 (04:41→20:51)
[2017-06-12 05:34] LABS: ALBUMIN 3.2 g/dL (3.4-5.0); ALBUMIN/GLOBULIN RATIO 0.8 (1.0-1.7); CALCIUM 8.6 mg/dL (8.5-10.1); CREATININE 0.8 mg/dL (0.6-1.0); GFR 76.6; POTASSIUM 3.9 mmol/L (3.5-5.1); TOTAL BILIRUBIN 0.3 mg/dL (0.2-1.0); TOTAL PROTEIN 7.3 g/dL (6.4-8.2)
[2017-06-12 05:45] LABS: BASO # 0.1 x10^3/uL (0.0-0.2); BASO % 1 % (0-3); EOS % 6 % (0-3); HEMATOCRIT 40.8 % (36.0-47.0); HEMOGLOBIN 13.8 g/dL (12.0-15.5); LYMPH # 5.8 x10^3/uL (1.0-4.8); LYMPH % 56 % (24-48); MEAN CORPUSCULAR HEMOGLOBIN 32 pg (25-35); MEAN CORPUSCULAR HGB CONC 34 g/dL (31-37); MEAN CORPUSCULAR VOLUME 94 fL (79-100); MONO % 10 % (0-9); NEUT % 27 % (31-73); PLATELET COUNT 486 x10^3/uL (140-400); RED BLOOD COUNT 4.36 x10^6/uL (3.50-5.40); RED CELL DISTRIBUTION WIDTH 13.5 % (11.5-14.5); WHITE BLOOD COUNT 10.4 x10^3/uL (4.0-11.0)
[2017-06-12 07:00] VITALS: BP 124/83
[2017-06-12] MEDS: LACTOBACILLUS RHAMNOSUS GG 1 CAPSULE. PO SCH ×2 (08:26→20:50)
[2017-06-12] MEDS: BACLOFEN 10 MG TABLET. PO SCH ×3 (08:26→20:50)
[2017-06-12] MEDS: GABAPENTIN 300 MG CAPSULE. PO SCH ×3 (08:26→20:50)
[2017-06-12] MEDS: PSEUDOEPHEDRINE ER 120 MG TABLET.ER. PO SCH ×2 (08:26→20:50)
[2017-06-12] MEDS: DICLOFENAC SODIUM 1% TOPICAL GEL 100GM TUBE. TP SCH ×2 (08:26→20:55)
[2017-06-12] MEDS: FLUTICASONE 50MCG/NASAL SPRAY 16GM BOTTLE. NS SCH (08:26)
[2017-06-12] MEDS: PANTOPRAZOLE 40 MG TABLET.DR. PO SCH (08:26)
[2017-06-12] MEDS: AZITHROMYCIN 250 MG TABLET. PO SCH (08:26)
--- NOTE | 2017-06-12 10:47 | PDOC ---
PROGRESS NOTES Chief Complaint Chief Complaint acute right leg pain right nondisplaced proximal fibula fracture right labral tear R trochanteric and hamstring bursitis L3-4 posterior annular tear fibromyalgia obesity, BMI 33 gastroesophageal reflux disease allergies, asthma History of Present Illness History of Present Illness Patient reports she felt improvement yesterday but then had an overnight episode of R LE pain that kept her awake for 4 hours. She reports feeling worse than yesterday and is having persistent pain in her R calf. Going to order a R LE doppler to check for a DVT. Able to discharge to rehab when determined appropriate by physiatry. Vitals Vitals Vital Signs Date Time Temp Pulse Resp B/P (MAP) Pulse Ox O2 Delivery O2 Flow Rate FiO2 06/12/17 07:08 Room Air 06/12/17 07:00 97.7 101 16 124/83 (97) 93 97.7 Physical Exam General: Alert, Oriented X3, Cooperative, mild distress Heart: Regular rate, Normal S1, No murmurs Lungs: Clear Abdomen: Soft Extremities: No clubbing, No cyanosis, No edema, Normal pulses, Other (R LE knee brace and ankle brace in place) Skin: No rashes, No breakdown, No significant lesion Labs LABS Laboratory Tests Test 06/12/17 03:05 White Blood Count 10.4 x10^3/uL (4.0-11.0) Red Blood Count 4.36 x10^6/uL (3.50-5.40) Hemoglobin 13.8 g/dL (12.0-15.5) Hematocrit 40.8 % (36.0-47.0) Mean Corpuscular Volume 94 fL (79-100) Mean Corpuscular Hemoglobin 32 pg (25-35) Mean Corpuscular Hemoglobin Concent 34 g/dL (31-37) Red Cell Distribution Width 13.5 % (11.5-14.5) Platelet Count 486 x10^3/uL (140-400) Neutrophils (%) (Auto) 27 % (31-73) Lymphocytes (%) (Auto) 56 % (24-48) Monocytes (%) (Auto) 10 % (0-9) Eosinophils (%) (Auto) 6 % (0-3) Basophils (%) (Auto) 1 % (0-3) Neutrophils # (Auto) 2.8 x10^3uL (1.8-7.7) Lymphocytes # (Auto) 5.8 x10^3/uL (1.0-4.8) Monocytes # (Auto) 1.0 x10^3/uL (0.0-1.1) Eosinophils # (Auto) 0.6 x10^3/uL (0.0-0.7) Basophils # (Auto) 0.1 x10^3/uL (0.0-0.2) Sodium Level 140 mmol/L (136-145) Potassium Level 3.9 mmol/L (3.5-5.1) Chloride Level 103 mmol/L (98-107) Carbon Dioxide Level 29 mmol/L (21-32) Anion Gap 8 (6-14) Blood Urea Nitrogen 16 mg/dL (7-20) Creatinine 0.8 mg/dL (0.6-1.0) Estimated GFR (Cockcroft-Gault) 76.6 BUN/Creatinine Ratio 20 (6-20) Glucose Level 88 mg/dL (70-99) Calcium Level 8.6 mg/dL (8.5-10.1) Total Bilirubin 0.3 mg/dL (0.2-1.0) Aspartate Amino Transf (AST/SGOT) 40 U/L (15-37) Alanine Aminotransferase (ALT/SGPT) 61 U/L (14-59) Alkaline Phosphatase 69 U/L (46-116) Total Protein 7.3 g/dL (6.4-8.2) Albumin 3.2 g/dL (3.4-5.0) Albumin/Globulin Ratio 0.8 (1.0-1.7) Review of Systems Review of Systems Patient reports R posterior distal LE pain Patient reports inability to take off ankle brace without her R ankle deviating Assessment and Plan Assessmemt and Plan Problems Medical Problems: (1) Intractable neuropathic pain of right lower extremity Status: Acute Assessment: acute right leg pain right nondisplaced proximal fibula fracture right labral tear R trochanteric and hamstring bursitis L3-4 posterior annular tear fibromyalgia obesity, BMI 33 gastroesophageal reflux disease allergies, asthma Plan: R LE doppler Pain control Continue lovenox Home meds PT/OT Appreciate physiatry input Recheck labs Discharge to rehab when okay with subspecialist Problems: Comment Review of Relevant I have reviewed the following items dalila (where applicable) has been applied. Labs Laboratory Tests Test 06/11/17 03:55 06/12/17 03:05 White Blood Count 9.1 x10^3/uL (4.0-11.0) 10.4 x10^3/uL (4.0-11.0) Red Blood Count 4.46 x10^6/uL (3.50-5.40) 4.36 x10^6/uL (3.50-5.40) Hemoglobin 14.0 g/dL (12.0-15.5) 13.8 g/dL (12.0-15.5) Hematocrit 42.0 % (36.0-47.0) 40.8 % (36.0-47.0) Mean Corpuscular Volume 94 fL (79-100) 94 fL (79-100) Mean Corpuscular Hemoglobin 31 pg (25-35) 32 pg (25-35) Mean Corpuscular Hemoglobin Concent 33 g/dL (31-37) 34 g/dL (31-37) Red Cell Distribution Width 13.4 % (11.5-14.5) 13.5 % (11.5-14.5) Platelet Count 480 x10^3/uL (140-400) 486 x10^3/uL (140-400) Neutrophils (%) (Auto) 33 % (31-73) 27 % (31-73) Lymphocytes (%) (Auto) 48 % (24-48) 56 % (24-48) Monocytes (%) (Auto) 12 % (0-9) 10 % (0-9) Eosinophils (%) (Auto) 7 % (0-3) 6 % (0-3) Basophils (%) (Auto) 1 % (0-3) 1 % (0-3) Neutrophils # (Auto) 3.0 x10^3uL (1.8-7.7) 2.8 x10^3uL (1.8-7.7) Lymphocytes # (Auto) 4.3 x10^3/uL (1.0-4.8) 5.8 x10^3/uL (1.0-4.8) Monocytes # (Auto) 1.1 x10^3/uL (0.0-1.1) 1.0 x10^3/uL (0.0-1.1) Eosinophils # (Auto) 0.6 x10^3/uL (0.0-0.7) 0.6 x10^3/uL (0.0-0.7) Basophils # (Auto) 0.1 x10^3/uL (0.0-0.2) 0.1 x10^3/uL (0.0-0.2) Sodium Level 138 mmol/L (136-145) 140 mmol/L (136-145) Potassium Level 3.8 mmol/L (3.5-5.1) 3.9 mmol/L (3.5-5.1) Chloride Level 100 mmol/L (98-107) 103 mmol/L (98-107) Carbon Dioxide Level 26 mmol/L (21-32) 29 mmol/L (21-32) Anion Gap 12 (6-14) 8 (6-14) Blood Urea Nitrogen 17 mg/dL (7-20) 16 mg/dL (7-20) Creatinine 0.7 mg/dL (0.6-1.0) 0.8 mg/dL (0.6-1.0) Estimated GFR (Cockcroft-Gault) 89.3 76.6 BUN/Creatinine Ratio 24 (6-20) 20 (6-20) Glucose Level 86 mg/dL (70-99) 88 mg/dL (70-99) Calcium Level 8.2 mg/dL (8.5-10.1) 8.6 mg/dL (8.5-10.1) Total Bilirubin 0.2 mg/dL (0.2-1.0) 0.3 mg/dL (0.2-1.0) Aspartate Amino Transf (AST/SGOT) 44 U/L (15-37) 40 U/L (15-37) Alanine Aminotransferase (ALT/SGPT) 60 U/L (14-59) 61 U/L (14-59) Alkaline Phosphatase 67 U/L (46-116) 69 U/L (46-116) Total Protein 7.0 g/dL (6.4-8.2) 7.3 g/dL (6.4-8.2) Albumin 3.1 g/dL (3.4-5.0) 3.2 g/dL (3.4-5.0) Albumin/Globulin Ratio 0.8 (1.0-1.7) 0.8 (1.0-1.7) Laboratory Tests Test 06/12/17 03:05 White Blood Count 10.4 x10^3/uL (4.0-11.0) Red Blood Count 4.36 x10^6/uL (3.50-5.40) Hemoglobin 13.8 g/dL (12.0-15.5) Hematocrit 40.8 % (36.0-47.0) Mean Corpuscular Volume 94 fL (79-100) Mean Corpuscular Hemoglobin 32 pg (25-35) Mean Corpuscular Hemoglobin Concent 34 g/dL (31-37) Red Cell Distribution Width 13.5 % (11.5-14.5) Platelet Count 486 x10^3/uL (140-400) Neutrophils (%) (Auto) 27 % (31-73) Lymphocytes (%) (Auto) 56 % (24-48) Monocytes (%) (Auto) 10 % (0-9) Eosinophils (%) (Auto) 6 % (0-3) Basophils (%) (Auto) 1 % (0-3) Neutrophils # (Auto) 2.8 x10^3uL (1.8-7.7) Lymphocytes # (Auto) 5.8 x10^3/uL (1.0-4.8) Monocytes # (Auto) 1.0 x10^3/uL (0.0-1.1) Eosinophils # (Auto) 0.6 x10^3/uL (0.0-0.7) Basophils # (Auto) 0.1 x10^3/uL (0.0-0.2) Sodium Level 140 mmol/L (136-145) Potassium Level 3.9 mmol/L (3.5-5.1) Chloride Level 103 mmol/L (98-107) Carbon Dioxide Level 29 mmol/L (21-32) Anion Gap 8 (6-14) Blood Urea Nitrogen 16 mg/dL (7-20) Creatinine 0.8 mg/dL (0.6-1.0) Estimated GFR (Cockcroft-Gault) 76.6 BUN/Creatinine Ratio 20 (6-20) Glucose Level 88 mg/dL (70-99) Calcium Level 8.6 mg/dL (8.5-10.1) Total Bilirubin 0.3 mg/dL (0.2-1.0) Aspartate Amino Transf (AST/SGOT) 40 U/L (15-37) Alanine Aminotransferase (ALT/SGPT) 61 U/L (14-59) Alkaline Phosphatase 69 U/L (46-116) Total Protein 7.3 g/dL (6.4-8.2) Albumin 3.2 g/dL (3.4-5.0) Albumin/Globulin Ratio 0.8 (1.0-1.7) Medications Current Medications Hydromorphone HCl (Dilaudid) 1 mg 1X ONCE IV Last administered on 06/04/17 18:36; Start 06/04/17 at 18:30; Stop 06/04/17 at 18:32; Status DC Hydromorphone HCl (Dilaudid) 1 mg 1X ONCE IV Last administered on 06/04/17 19:58; Start 06/04/17 at 20:00; Stop 06/04/17 at 20:01; Status DC Haloperidol Lactate (Haldol) 5 mg 1X ONCE IVP Last administered on 06/05/17 00:39; Start 06/05/17 at 00:15; Stop 06/05/17 at 00:16; Status DC Ondansetron HCl (Zofran) 4 mg PRN Q8HRS PRN IV NAUSEA/VOMITING; Start at 00:00; Stop 06/05/17 at 23:59; Status DC Fentanyl Citrate (Fentanyl 2ml Vial) 50 mcg PRN Q1HR PRN IV PAIN Last administered on 06/05/17 20:44; Start 06/05/17 at 00:00; Stop 06/05/17 at 23 :59; Status DC Acetaminophen (Tylenol) 650 mg PRN Q4HRS PRN PO FEVER Last administered on 10:02; Start 06/05/17 at 00:00; Stop 06/05/17 at 23:59; Status DC Diazepam (Valium) 5 mg 1X ONCE PO Last administered on 06/05/17 18:24; Start 06/05/17 at 14:00; Stop 06/05/17 at 14:01; Status DC Atorvastatin Calcium (Lipitor) 20 mg DAILY PO ; Start 06/06/17 at 09:00; Stop 06/07/17 at 08:54; Status DC Cetirizine HCl (ZyrTEC) 10 mg HS PO Last administered on 06/11/17 20:02; Start 06/05/17 at 21:00 Pseudoephedrine HCl (Sudafed 12-Hour) 120 mg BID PO Last administered on 08:26; Start 06/05/17 at 21:00 Non-Formulary Medication 1 puff PRN Q4HRS PRN INH SHORTNESS OF BREATH; Start 06/05/17 at 16:15; Status UNV Non-Formulary Medication 1 tab DAILY PO ; Start 06/06/17 at 09:00; Status UNV Fluticasone Propionate (Flonase) 2 spray DAILY NS Last administered on 08:26; Start 06/06/17 at 09:00 Non-Formulary Medication 1 tab DAILY PO ; Start 06/06/17 at 09:00; Status UNV Pantoprazole Sodium (Protonix) 40 mg DAILYAC PO Last administered on 08:26; Start 06/06/17 at 07:30 Multivit/ Folic Acid/Iron (Multivitamin ) 1 tab DAILY PO ; Start 06/06/17 at 09:00; Stop 06/07/17 at 08:54; Status DC Famotidine (Pepcid) 20 mg QHS PO Last administered on 06/11/17 20:03; Start 06/05/17 at 21:00 Albuterol Sulfate (Ventolin Neb Soln) 2.5 mg PRN Q6HRS PRN NEB SHORTNESS OF BREATH; Start 06/05/17 at 16:15 Diazepam (Valium) 5 mg 1X ONCE PO Last administered on 06/05/17 18:25; Start 06/05/17 at 18:30; Stop 06/05/17 at 18:31; Status DC Acetaminophen (Tylenol) 650 mg PRN Q6HRS PRN PO HEADACHE Last administered on 06/10/17 11:07; Start 06/06/17 at 03:00 Oxycodone/ Acetaminophen (Percocet 5/325) 1 tab PRN Q4HRS PRN PO PAIN Last administered on 12/18/17at 16:55; Start 06/06/17 at 10:15; Stop 06/08/17 at 18 :25; Status DC Fentanyl Citrate (Fentanyl 2ml Vial) 50 mcg PRN Q2HR PRN IV PAIN Last administered on 06/08/17 04:03; Start 06/06/17 at 10:15 Ketorolac Tromethamine (Toradol) 15 mg PRN Q6HRS PRN IV PAIN Last administered on 06/10/17 17:56; Start 06/06/17 at 10:15; Stop 06/11/17 at 10:14; Status DC Atorvastatin Calcium (Lipitor) 20 mg QHS PO Last administered on 06/11/17 20: 02; Start 06/07/17 at 21:00 Multivit/ Folic Acid/Iron (Multivitamin ) 1 tab QHS PO Last administered on 06/11/17 20:01; Start 06/07/17 at 21:00 Diazepam (Valium) 5 mg 1X ONCE PO Last administered on 06/07/17 13:28; Start 06/07/17 at 11:30; Stop 06/07/17 at 11:31; Status DC Azithromycin (Zithromax) 500 mg 1X ONCE PO Last administered on 06/08/17 16: 55; Start 06/08/17 at 15:00; Stop 06/08/17 at 15:01; Status DC Azithromycin (Zithromax) 250 mg DAILY PO Last administered on 06/12/17 08:26 ; Start 06/09/17 at 09:00 Lactobacillus Rhamnosus (Culturelle) 1 cap BID PO Last administered on 08:26; Start 06/08/17 at 21:00 Diclofenac Sodium (Voltaren) 1 chantal BID TP Last administered on 06/12/17 08:26 ; Start 06/08/17 at 21:00 Gabapentin (Neurontin) 300 mg TID PO Last administered on 06/12/17 08:26; Start 06/08/17 at 21:00 Oxycodone/ Acetaminophen (Percocet 10/325) 1 tab PRN Q4HRS PRN PO PAIN Last administered on 06/12/17 04:41; Start 06/08/17 at 18:30 Cyclobenzaprine HCl (Flexeril) 10 mg Q6HRS PO ; Start 06/09/17 at 18:00; Stop 06/09/17 at 18:00; Status DC Alprazolam (Xanax) 0.5 mg PRN Q8HRS PRN PO ANXIETY / AGITATION Last administered on 06/10/17 17:55; Start 06/08/17 at 18:30 Baclofen (Lioresal) 10 mg TID PO Last administered on 06/12/17 08:26; Start 06/09/17 at 10:00 Enoxaparin Sodium (Lovenox 40mg Syringe) 40 mg Q24H SQ Last administered on 20:07; Start 06/10/17 at 21:00 Active Scripts Active Reported Vitamins ( Vits W-Ca,Fe,Fa(<1MG)) 1 Each Tablet 1 Tab PO DAILY Sudafed 12-Hour (Pseudoephedrine Hcl) 120 Mg Tablet.er 1 Tab PO BID Atorvastatin Calcium 20 Mg Tablet 1 Tab PO DAILY Ortho-Novum (Norethindrone-Ethinyl Estrad) 1 Each Tablet 1 Tab PO DAILY Flonase Allergy Relief (Fluticasone Propionate) 9.9 Ml [place].susp 2 Sprays NS DAILY Proair Hfa Inhaler (Albuterol Sulfate) 8.5 Gm Hfa.aer.ad 1 Puff INH PRN Q4HRS PRN Prilosec Otc (Omeprazole Magnesium) 20 Mg Tablet.dr 1 Tab PO DAILY Zantac (Ranitidine Hcl) 300 Mg Tablet 1 Tab PO QHS Zyrtec (Cetirizine Hcl) 10 Mg Tablet 10 Mg PO HS Jayshree-D 24 Hour Tablet (Fexofenadine/Pseudoephedrine) 1 Each Tab.er.24h 1 Tab PO DAILY Vitals/I & O Vital Sign - Last 24 Hours 06/11/17 06/11/17 06/11/17 06/11/17 11:00 12:23 14:32 15:00 Temp 98.3 98.4 98.3 98.4 Pulse 96 105 Resp 18 18 B/P (MAP) 135/81 (99) 122/69 (86) Pulse Ox 95 98 98 98 O2 Delivery Room Air Room Air Room Air Room Air 06/11/17 06/11/17 06/11/17 06/11/17 15:31 19:20 20:00 20:18 Temp 97.7 97.7 Pulse 93 Resp 16 B/P (MAP) 113/62 (79) Pulse Ox 98 99 O2 Delivery Room Air Room Air Room Air 06/11/17 06/12/17 06/12/17 06/12/17 23:20 03:00 04:41 05:41 Temp 97.9 98.1 97.9 98.1 Pulse 96 89 Resp 18 16 B/P (MAP) 153/79 (103) 132/83 (99) Pulse Ox 96 97 O2 Delivery Room Air Room Air Room Air Room Air 06/12/17 06/12/17 07:00 07:08 Temp 97.7 97.7 Pulse 101 Resp 16 B/P (MAP) 124/83 (97) Pulse Ox 93 O2 Delivery Room Air Room Air Intake and Output 06/11/17 06/11/17 06/12/17 15:00 23:00 07:00 Intake Total 400 ml 200 ml Output Total 1200 ml Balance -800 ml 200 ml TAMERA SCHULTZ III DO Jun 12, 2017 10:47
[2017-06-12 10:52] VITALS: BP 113/70
[2017-06-12 15:28] VITALS: BP 139/86
--- NOTE | 2017-06-12 15:53 | PDOC ---
PROGRESS NOTES Subjective Subjective She admits continued pain in right foot and leg. Objective Objective Vital Signs Date Time Temp Pulse Resp B/P (MAP) Pulse Ox O2 Delivery O2 Flow Rate FiO2 06/12/17 15:28 97.5 102 16 139/86 (103) 96 Room Air 97.5 Intake and Output 06/12/17 07:00 Intake Total 600 ml Output Total 1200 ml Balance -600 ml Intake Oral 600 ml Output Urine Total 1200 ml # Voids 1 Physical Exam Physical Exam With cam walker boot she obtained from [employer] she got up and walked wiht roller walker slowly with antalgic gait. She is still protecting her right foot and some tenderness to palpation over lateral aspect of proximal right leg at fibular fracture site. Assessment Assessment Problems Medical Problems: (1) Intractable neuropathic pain of right lower extremity Status: Acute Plan Plan of Care Hopefully home with home health follow up tomorrow. Comment Review of Relevant I have reviewed the following items dalila (where applicable) has been applied. Labs Laboratory Tests Test 06/11/17 03:55 06/12/17 03:05 White Blood Count 9.1 x10^3/uL (4.0-11.0) 10.4 x10^3/uL (4.0-11.0) Red Blood Count 4.46 x10^6/uL (3.50-5.40) 4.36 x10^6/uL (3.50-5.40) Hemoglobin 14.0 g/dL (12.0-15.5) 13.8 g/dL (12.0-15.5) Hematocrit 42.0 % (36.0-47.0) 40.8 % (36.0-47.0) Mean Corpuscular Volume 94 fL (79-100) 94 fL (79-100) Mean Corpuscular Hemoglobin 31 pg (25-35) 32 pg (25-35) Mean Corpuscular Hemoglobin Concent 33 g/dL (31-37) 34 g/dL (31-37) Red Cell Distribution Width 13.4 % (11.5-14.5) 13.5 % (11.5-14.5) Platelet Count 480 x10^3/uL (140-400) 486 x10^3/uL (140-400) Neutrophils (%) (Auto) 33 % (31-73) 27 % (31-73) Lymphocytes (%) (Auto) 48 % (24-48) 56 % (24-48) Monocytes (%) (Auto) 12 % (0-9) 10 % (0-9) Eosinophils (%) (Auto) 7 % (0-3) 6 % (0-3) Basophils (%) (Auto) 1 % (0-3) 1 % (0-3) Neutrophils # (Auto) 3.0 x10^3uL (1.8-7.7) 2.8 x10^3uL (1.8-7.7) Lymphocytes # (Auto) 4.3 x10^3/uL (1.0-4.8) 5.8 x10^3/uL (1.0-4.8) Monocytes # (Auto) 1.1 x10^3/uL (0.0-1.1) 1.0 x10^3/uL (0.0-1.1) Eosinophils # (Auto) 0.6 x10^3/uL (0.0-0.7) 0.6 x10^3/uL (0.0-0.7) Basophils # (Auto) 0.1 x10^3/uL (0.0-0.2) 0.1 x10^3/uL (0.0-0.2) Sodium Level 138 mmol/L (136-145) 140 mmol/L (136-145) Potassium Level 3.8 mmol/L (3.5-5.1) 3.9 mmol/L (3.5-5.1) Chloride Level 100 mmol/L (98-107) 103 mmol/L (98-107) Carbon Dioxide Level 26 mmol/L (21-32) 29 mmol/L (21-32) Anion Gap 12 (6-14) 8 (6-14) Blood Urea Nitrogen 17 mg/dL (7-20) 16 mg/dL (7-20) Creatinine 0.7 mg/dL (0.6-1.0) 0.8 mg/dL (0.6-1.0) Estimated GFR (Cockcroft-Gault) 89.3 76.6 BUN/Creatinine Ratio 24 (6-20) 20 (6-20) Glucose Level 86 mg/dL (70-99) 88 mg/dL (70-99) Calcium Level 8.2 mg/dL (8.5-10.1) 8.6 mg/dL (8.5-10.1) Total Bilirubin 0.2 mg/dL (0.2-1.0) 0.3 mg/dL (0.2-1.0) Aspartate Amino Transf (AST/SGOT) 44 U/L (15-37) 40 U/L (15-37) Alanine Aminotransferase (ALT/SGPT) 60 U/L (14-59) 61 U/L (14-59) Alkaline Phosphatase 67 U/L (46-116) 69 U/L (46-116) Total Protein 7.0 g/dL (6.4-8.2) 7.3 g/dL (6.4-8.2) Albumin 3.1 g/dL (3.4-5.0) 3.2 g/dL (3.4-5.0) Albumin/Globulin Ratio 0.8 (1.0-1.7) 0.8 (1.0-1.7) Laboratory Tests Test 06/12/17 03:05 White Blood Count 10.4 x10^3/uL (4.0-11.0) Red Blood Count 4.36 x10^6/uL (3.50-5.40) Hemoglobin 13.8 g/dL (12.0-15.5) Hematocrit 40.8 % (36.0-47.0) Mean Corpuscular Volume 94 fL (79-100) Mean Corpuscular Hemoglobin 32 pg (25-35) Mean Corpuscular Hemoglobin Concent 34 g/dL (31-37) Red Cell Distribution Width 13.5 % (11.5-14.5) Platelet Count 486 x10^3/uL (140-400) Neutrophils (%) (Auto) 27 % (31-73) Lymphocytes (%) (Auto) 56 % (24-48) Monocytes (%) (Auto) 10 % (0-9) Eosinophils (%) (Auto) 6 % (0-3) Basophils (%) (Auto) 1 % (0-3) Neutrophils # (Auto) 2.8 x10^3uL (1.8-7.7) Lymphocytes # (Auto) 5.8 x10^3/uL (1.0-4.8) Monocytes # (Auto) 1.0 x10^3/uL (0.0-1.1) Eosinophils # (Auto) 0.6 x10^3/uL (0.0-0.7) Basophils # (Auto) 0.1 x10^3/uL (0.0-0.2) Sodium Level 140 mmol/L (136-145) Potassium Level 3.9 mmol/L (3.5-5.1) Chloride Level 103 mmol/L (98-107) Carbon Dioxide Level 29 mmol/L (21-32) Anion Gap 8 (6-14) Blood Urea Nitrogen 16 mg/dL (7-20) Creatinine 0.8 mg/dL (0.6-1.0) Estimated GFR (Cockcroft-Gault) 76.6 BUN/Creatinine Ratio 20 (6-20) Glucose Level 88 mg/dL (70-99) Calcium Level 8.6 mg/dL (8.5-10.1) Total Bilirubin 0.3 mg/dL (0.2-1.0) Aspartate Amino Transf (AST/SGOT) 40 U/L (15-37) Alanine Aminotransferase (ALT/SGPT) 61 U/L (14-59) Alkaline Phosphatase 69 U/L (46-116) Total Protein 7.3 g/dL (6.4-8.2) Albumin 3.2 g/dL (3.4-5.0) Albumin/Globulin Ratio 0.8 (1.0-1.7) Medications Current Medications Hydromorphone HCl (Dilaudid) 1 mg 1X ONCE IV Last administered on 06/04/17 18:36; Start 06/04/17 at 18:30; Stop 06/04/17 at 18:32; Status DC Hydromorphone HCl (Dilaudid) 1 mg 1X ONCE IV Last administered on 06/04/17 19:58; Start 06/04/17 at 20:00; Stop 06/04/17 at 20:01; Status DC Haloperidol Lactate (Haldol) 5 mg 1X ONCE IVP Last administered on 06/05/17 00:39; Start 06/05/17 at 00:15; Stop 06/05/17 at 00:16; Status DC Ondansetron HCl (Zofran) 4 mg PRN Q8HRS PRN IV NAUSEA/VOMITING; Start at 00:00; Stop 06/05/17 at 23:59; Status DC Fentanyl Citrate (Fentanyl 2ml Vial) 50 mcg PRN Q1HR PRN IV PAIN Last administered on 06/05/17 20:44; Start 06/05/17 at 00:00; Stop 06/05/17 at 23 :59; Status DC Acetaminophen (Tylenol) 650 mg PRN Q4HRS PRN PO FEVER Last administered on 10:02; Start 06/05/17 at 00:00; Stop 06/05/17 at 23:59; Status DC Diazepam (Valium) 5 mg 1X ONCE PO Last administered on 06/05/17 18:24; Start 06/05/17 at 14:00; Stop 06/05/17 at 14:01; Status DC Atorvastatin Calcium (Lipitor) 20 mg DAILY PO ; Start 06/06/17 at 09:00; Stop 06/07/17 at 08:54; Status DC Cetirizine HCl (ZyrTEC) 10 mg HS PO Last administered on 06/11/17 20:02; Start 06/05/17 at 21:00 Pseudoephedrine HCl (Sudafed 12-Hour) 120 mg BID PO Last administered on 08:26; Start 06/05/17 at 21:00 Non-Formulary Medication 1 puff PRN Q4HRS PRN INH SHORTNESS OF BREATH; Start 06/05/17 at 16:15; Status UNV Non-Formulary Medication 1 tab DAILY PO ; Start 06/06/17 at 09:00; Status UNV Fluticasone Propionate (Flonase) 2 spray DAILY NS Last administered on 08:26; Start 06/06/17 at 09:00 Non-Formulary Medication 1 tab DAILY PO ; Start 06/06/17 at 09:00; Status UNV Pantoprazole Sodium (Protonix) 40 mg DAILYAC PO Last administered on 08:26; Start 06/06/17 at 07:30 Multivit/ Folic Acid/Iron (Multivitamin ) 1 tab DAILY PO ; Start 06/06/17 at 09:00; Stop 06/07/17 at 08:54; Status DC Famotidine (Pepcid) 20 mg QHS PO Last administered on 06/11/17 20:03; Start 06/05/17 at 21:00 Albuterol Sulfate (Ventolin Neb Soln) 2.5 mg PRN Q6HRS PRN NEB SHORTNESS OF BREATH; Start 06/05/17 at 16:15 Diazepam (Valium) 5 mg 1X ONCE PO Last administered on 06/05/17 18:25; Start 06/05/17 at 18:30; Stop 06/05/17 at 18:31; Status DC Acetaminophen (Tylenol) 650 mg PRN Q6HRS PRN PO HEADACHE Last administered on 06/10/17 11:07; Start 06/06/17 at 03:00 Oxycodone/ Acetaminophen (Percocet 5/325) 1 tab PRN Q4HRS PRN PO PAIN Last administered on 06/08/17 16:55; Start 06/06/17 at 10:15; Stop 06/08/17 at 18 :25; Status DC Fentanyl Citrate (Fentanyl 2ml Vial) 50 mcg PRN Q2HR PRN IV PAIN Last administered on 06/08/17 04:03; Start 06/06/17 at 10:15 Ketorolac Tromethamine (Toradol) 15 mg PRN Q6HRS PRN IV PAIN Last administered on 06/10/17 17:56; Start 06/06/17 at 10:15; Stop 06/11/17 at 10:14; Status DC Atorvastatin Calcium (Lipitor) 20 mg QHS PO Last administered on 06/11/17 20: 02; Start 06/07/17 at 21:00 Multivit/ Folic Acid/Iron (Multivitamin ) 1 tab QHS PO Last administered on 06/11/17 20:01; Start 06/07/17 at 21:00 Diazepam (Valium) 5 mg 1X ONCE PO Last administered on 06/07/17 13:28; Start 06/07/17 at 11:30; Stop 06/07/17 at 11:31; Status DC Azithromycin (Zithromax) 500 mg 1X ONCE PO Last administered on 06/08/17 16: 55; Start 06/08/17 at 15:00; Stop 06/08/17 at 15:01; Status DC Azithromycin (Zithromax) 250 mg DAILY PO Last administered on 06/12/17 08:26 ; Start 06/09/17 at 09:00 Lactobacillus Rhamnosus (Culturelle) 1 cap BID PO Last administered on 08:26; Start 06/08/17 at 21:00 Diclofenac Sodium (Voltaren) 1 chantal BID TP Last administered on 06/12/17 08:26 ; Start 06/08/17 at 21:00 Gabapentin (Neurontin) 300 mg TID PO Last administered on 06/12/17 13:40; Start 06/08/17 at 21:00 Oxycodone/ Acetaminophen (Percocet 10/325) 1 tab PRN Q4HRS PRN PO PAIN Last administered on 06/12/17 13:41; Start 06/08/17 at 18:30 Cyclobenzaprine HCl (Flexeril) 10 mg Q6HRS PO ; Start 06/09/17 at 18:00; Stop 06/09/17 at 18:00; Status DC Alprazolam (Xanax) 0.5 mg PRN Q8HRS PRN PO ANXIETY / AGITATION Last administered on 06/10/17 17:55; Start 06/08/17 at 18:30 Baclofen (Lioresal) 10 mg TID PO Last administered on 06/12/17 13:40; Start 06/09/17 at 10:00 Enoxaparin Sodium (Lovenox 40mg Syringe) 40 mg Q24H SQ Last administered on 20:07; Start 06/10/17 at 21:00 Active Scripts Active Reported Vitamins ( Vits W-Ca,Fe,Fa(<1MG)) 1 Each Tablet 1 Tab PO DAILY Sudafed 12-Hour (Pseudoephedrine Hcl) 120 Mg Tablet.er 1 Tab PO BID Atorvastatin Calcium 20 Mg Tablet 1 Tab PO DAILY Ortho-Novum (Norethindrone-Ethinyl Estrad) 1 Each Tablet 1 Tab PO DAILY Flonase Allergy Relief (Fluticasone Propionate) 9.9 Ml [place].susp 2 Sprays NS DAILY Proair Hfa Inhaler (Albuterol Sulfate) 8.5 Gm Hfa.aer.ad 1 Puff INH PRN Q4HRS PRN Prilosec Otc (Omeprazole Magnesium) 20 Mg Tablet.dr 1 Tab PO DAILY Zantac (Ranitidine Hcl) 300 Mg Tablet 1 Tab PO QHS Zyrtec (Cetirizine Hcl) 10 Mg Tablet 10 Mg PO HS Jayshree-D 24 Hour Tablet (Fexofenadine/Pseudoephedrine) 1 Each Tab.er.24h 1 Tab PO DAILY Vitals/I & O Vital Sign - Last 24 Hours 06/11/17 06/11/17 06/11/17 06/11/17 19:20 20:00 20:18 23:20 Temp 97.7 97.9 97.7 97.9 Pulse 93 96 Resp 16 18 B/P (MAP) 113/62 (79) 153/79 (103) Pulse Ox 99 96 O2 Delivery Room Air Room Air Room Air Room Air 06/12/17 06/12/17 06/12/17 06/12/17 03:00 04:41 07:00 07:08 Temp 98.1 97.7 98.1 97.7 Pulse 89 101 Resp 16 16 B/P (MAP) 132/83 (99) 124/83 (97) Pulse Ox 97 93 O2 Delivery Room Air Room Air Room Air Room Air 06/12/17 06/12/17 06/12/17 06/12/17 10:52 13:41 14:44 15:28 Temp 98.1 97.5 98.1 97.5 Pulse 106 102 Resp 16 16 B/P (MAP) 113/70 (84) 139/86 (103) Pulse Ox 94 94 94 96 O2 Delivery Room Air Room Air Room Air Room Air Intake and Output 06/11/17 06/11/17 06/12/17 15:00 23:00 07:00 Intake Total 400 ml 200 ml Output Total 1200 ml Balance -800 ml 200 ml KIKI KENNY MD Jun 12, 2017 15:53
--- NOTE | 2017-06-12 16:44 | RAD ---
Right lower extremity venous duplex study 06/12/2017 Clinical History: Right leg swelling.. Technique: Using a combination of real time ultrasound imaging and color-flow and pulse Doppler imaging techniques along with graded compression and augmentation, duplex evaluation of the deep venous system of the right lower extremity was performed. Multiple images were obtained. Findings: There is no sonographic evidence of deep venous thrombosis involving the visualized deep venous structures of right lower extremity. Impression: Negative study.
[2017-06-12 19:00] VITALS: BP 117/63
[2017-06-12] MEDS: ATORVASTATIN CALCIUM 20 MG TABLET PO SCH (20:50)
[2017-06-12] MEDS: CETIRIZINE HCL 10 MG TABLET. PO SCH (20:50)
[2017-06-12] MEDS: FAMOTIDINE 20 MG TABLET. PO SCH (20:50)
[2017-06-12] MEDS: PRENATAL MULTIVITAMIN TABLET. PO SCH (20:50)
[2017-06-12] MEDS: ENOXAPARIN 40 MG/0.4 ML SYRINGE. SQ SCH (20:55)
[2017-06-12 23:23] VITALS: BP 119/77
[2017-06-13 03:00] VITALS: BP 139/73
[2017-06-13] MEDS: oxyCODONE/APAP 10/325 1 TAB TABLET PO PRN ×3 (03:24→14:47)
[2017-06-13 05:11] LABS: BASO # 0.1 x10^3/uL (0.0-0.2); BASO % 1 % (0-3); EOS % 6 % (0-3); HEMATOCRIT 39.9 % (36.0-47.0); HEMOGLOBIN 13.2 g/dL (12.0-15.5); LYMPH # 5.8 x10^3/uL (1.0-4.8); LYMPH % 54 % (24-48); MEAN CORPUSCULAR HEMOGLOBIN 31 pg (25-35); MEAN CORPUSCULAR HGB CONC 33 g/dL (31-37); MEAN CORPUSCULAR VOLUME 94 fL (79-100); MONO % 12 % (0-9); NEUT % 27 % (31-73); PLATELET COUNT 477 x10^3/uL (140-400); RED BLOOD COUNT 4.27 x10^6/uL (3.50-5.40); RED CELL DISTRIBUTION WIDTH 13.3 % (11.5-14.5); WHITE BLOOD COUNT 10.8 x10^3/uL (4.0-11.0)
[2017-06-13 05:28] LABS: ALBUMIN 3.2 g/dL (3.4-5.0); ALBUMIN/GLOBULIN RATIO 0.9 (1.0-1.7); CALCIUM 8.7 mg/dL (8.5-10.1); CREATININE 0.7 mg/dL (0.6-1.0); GFR 89.3; POTASSIUM 3.8 mmol/L (3.5-5.1); TOTAL BILIRUBIN 0.3 mg/dL (0.2-1.0); TOTAL PROTEIN 6.9 g/dL (6.4-8.2)
[2017-06-13 07:45] VITALS: BP 125/64
[2017-06-13] MEDS: GABAPENTIN 300 MG CAPSULE. PO SCH ×3 (08:42→20:56)
[2017-06-13] MEDS: PSEUDOEPHEDRINE ER 120 MG TABLET.ER. PO SCH ×2 (08:42→20:56)
[2017-06-13] MEDS: PANTOPRAZOLE 40 MG TABLET.DR. PO SCH (08:42)
[2017-06-13] MEDS: FLUTICASONE 50MCG/NASAL SPRAY 16GM BOTTLE. NS SCH (08:42)
[2017-06-13] MEDS: LACTOBACILLUS RHAMNOSUS GG 1 CAPSULE. PO SCH ×2 (08:42→20:56)
[2017-06-13] MEDS: AZITHROMYCIN 250 MG TABLET. PO SCH (08:42)
[2017-06-13] MEDS: BACLOFEN 10 MG TABLET. PO SCH ×3 (08:43→20:57)
--- NOTE | 2017-06-13 08:43 | PDOC ---
PROGRESS NOTES Chief Complaint Chief Complaint acute right leg pain right nondisplaced proximal fibula fracture right labral tear R trochanteric and hamstring bursitis L3-4 posterior annular tear fibromyalgia obesity, BMI 33 gastroesophageal reflux disease allergies, asthma History of Present Illness History of Present Illness Patient was sitting in recliner comfortably eating breakfast upon presentation. She reports a better day yesterday and she was able to walk to the nurses station. A lower extremity ultrasound was completed to r/o a DVT after patient complained yesterday of posterior calf pain which came back negative. 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 Vitals Vitals Vital Signs Date Time Temp Pulse Resp B/P (MAP) Pulse Ox O2 Delivery O2 Flow Rate FiO2 06/13/17 07:45 98.2 93 16 125/64 (84) 94 Room Air 98.2 Physical Exam General: Alert, Oriented X3, Cooperative, mild distress Heart: Regular rate, Normal S1, No murmurs Lungs: Clear Abdomen: Soft Extremities: No clubbing, No cyanosis, No edema, Normal pulses, Other (R LE knee brace and ankle brace in place) Skin: No rashes, No breakdown, No significant lesion Labs LABS Laboratory Tests Test 06/13/17 04:15 White Blood Count 10.8 x10^3/uL (4.0-11.0) Red Blood Count 4.27 x10^6/uL (3.50-5.40) Hemoglobin 13.2 g/dL (12.0-15.5) Hematocrit 39.9 % (36.0-47.0) Mean Corpuscular Volume 94 fL (79-100) Mean Corpuscular Hemoglobin 31 pg (25-35) Mean Corpuscular Hemoglobin Concent 33 g/dL (31-37) Red Cell Distribution Width 13.3 % (11.5-14.5) Platelet Count 477 x10^3/uL (140-400) Neutrophils (%) (Auto) 27 % (31-73) Lymphocytes (%) (Auto) 54 % (24-48) Monocytes (%) (Auto) 12 % (0-9) Eosinophils (%) (Auto) 6 % (0-3) Basophils (%) (Auto) 1 % (0-3) Neutrophils # (Auto) 2.9 x10^3uL (1.8-7.7) Lymphocytes # (Auto) 5.8 x10^3/uL (1.0-4.8) Monocytes # (Auto) 1.3 x10^3/uL (0.0-1.1) Eosinophils # (Auto) 0.7 x10^3/uL (0.0-0.7) Basophils # (Auto) 0.1 x10^3/uL (0.0-0.2) Sodium Level 140 mmol/L (136-145) Potassium Level 3.8 mmol/L (3.5-5.1) Chloride Level 103 mmol/L (98-107) Carbon Dioxide Level 28 mmol/L (21-32) Anion Gap 9 (6-14) Blood Urea Nitrogen 12 mg/dL (7-20) Creatinine 0.7 mg/dL (0.6-1.0) Estimated GFR (Cockcroft-Gault) 89.3 BUN/Creatinine Ratio 17 (6-20) Glucose Level 94 mg/dL (70-99) Calcium Level 8.7 mg/dL (8.5-10.1) Total Bilirubin 0.3 mg/dL (0.2-1.0) Aspartate Amino Transf (AST/SGOT) 48 U/L (15-37) Alanine Aminotransferase (ALT/SGPT) 66 U/L (14-59) Alkaline Phosphatase 69 U/L (46-116) Total Protein 6.9 g/dL (6.4-8.2) Albumin 3.2 g/dL (3.4-5.0) Albumin/Globulin Ratio 0.9 (1.0-1.7) Review of Systems Review of Systems Patient reports better ambulation Patient reports tolerable R LE pain Assessment and Plan Assessmemt and Plan Problems Medical Problems: (1) Intractable neuropathic pain of right lower extremity Status: Acute Assessment: acute right leg pain right nondisplaced proximal fibula fracture right labral tear R trochanteric and hamstring bursitis L3-4 posterior annular tear fibromyalgia obesity, BMI 33 gastroesophageal reflux disease allergies, asthma Plan: PT/OT Home meds Appreciate subspecialist input Normal diet Pain control Discharge to SNU Problems: Comment Review of Relevant I have reviewed the following items dalila (where applicable) has been applied. Labs Laboratory Tests Test 06/12/17 03:05 06/13/17 04:15 White Blood Count 10.4 x10^3/uL (4.0-11.0) 10.8 x10^3/uL (4.0-11.0) Red Blood Count 4.36 x10^6/uL (3.50-5.40) 4.27 x10^6/uL (3.50-5.40) Hemoglobin 13.8 g/dL (12.0-15.5) 13.2 g/dL (12.0-15.5) Hematocrit 40.8 % (36.0-47.0) 39.9 % (36.0-47.0) Mean Corpuscular Volume 94 fL (79-100) 94 fL (79-100) Mean Corpuscular Hemoglobin 32 pg (25-35) 31 pg (25-35) Mean Corpuscular Hemoglobin Concent 34 g/dL (31-37) 33 g/dL (31-37) Red Cell Distribution Width 13.5 % (11.5-14.5) 13.3 % (11.5-14.5) Platelet Count 486 x10^3/uL (140-400) 477 x10^3/uL (140-400) Neutrophils (%) (Auto) 27 % (31-73) 27 % (31-73) Lymphocytes (%) (Auto) 56 % (24-48) 54 % (24-48) Monocytes (%) (Auto) 10 % (0-9) 12 % (0-9) Eosinophils (%) (Auto) 6 % (0-3) 6 % (0-3) Basophils (%) (Auto) 1 % (0-3) 1 % (0-3) Neutrophils # (Auto) 2.8 x10^3uL (1.8-7.7) 2.9 x10^3uL (1.8-7.7) Lymphocytes # (Auto) 5.8 x10^3/uL (1.0-4.8) 5.8 x10^3/uL (1.0-4.8) Monocytes # (Auto) 1.0 x10^3/uL (0.0-1.1) 1.3 x10^3/uL (0.0-1.1) Eosinophils # (Auto) 0.6 x10^3/uL (0.0-0.7) 0.7 x10^3/uL (0.0-0.7) Basophils # (Auto) 0.1 x10^3/uL (0.0-0.2) 0.1 x10^3/uL (0.0-0.2) Sodium Level 140 mmol/L (136-145) 140 mmol/L (136-145) Potassium Level 3.9 mmol/L (3.5-5.1) 3.8 mmol/L (3.5-5.1) Chloride Level 103 mmol/L (98-107) 103 mmol/L (98-107) Carbon Dioxide Level 29 mmol/L (21-32) 28 mmol/L (21-32) Anion Gap 8 (6-14) 9 (6-14) Blood Urea Nitrogen 16 mg/dL (7-20) 12 mg/dL (7-20) Creatinine 0.8 mg/dL (0.6-1.0) 0.7 mg/dL (0.6-1.0) Estimated GFR (Cockcroft-Gault) 76.6 89.3 BUN/Creatinine Ratio 20 (6-20) 17 (6-20) Glucose Level 88 mg/dL (70-99) 94 mg/dL (70-99) Calcium Level 8.6 mg/dL (8.5-10.1) 8.7 mg/dL (8.5-10.1) Total Bilirubin 0.3 mg/dL (0.2-1.0) 0.3 mg/dL (0.2-1.0) Aspartate Amino Transf (AST/SGOT) 40 U/L (15-37) 48 U/L (15-37) Alanine Aminotransferase (ALT/SGPT) 61 U/L (14-59) 66 U/L (14-59) Alkaline Phosphatase 69 U/L (46-116) 69 U/L (46-116) Total Protein 7.3 g/dL (6.4-8.2) 6.9 g/dL (6.4-8.2) Albumin 3.2 g/dL (3.4-5.0) 3.2 g/dL (3.4-5.0) Albumin/Globulin Ratio 0.8 (1.0-1.7) 0.9 (1.0-1.7) Laboratory Tests Test 06/13/17 04:15 White Blood Count 10.8 x10^3/uL (4.0-11.0) Red Blood Count 4.27 x10^6/uL (3.50-5.40) Hemoglobin 13.2 g/dL (12.0-15.5) Hematocrit 39.9 % (36.0-47.0) Mean Corpuscular Volume 94 fL (79-100) Mean Corpuscular Hemoglobin 31 pg (25-35) Mean Corpuscular Hemoglobin Concent 33 g/dL (31-37) Red Cell Distribution Width 13.3 % (11.5-14.5) Platelet Count 477 x10^3/uL (140-400) Neutrophils (%) (Auto) 27 % (31-73) Lymphocytes (%) (Auto) 54 % (24-48) Monocytes (%) (Auto) 12 % (0-9) Eosinophils (%) (Auto) 6 % (0-3) Basophils (%) (Auto) 1 % (0-3) Neutrophils # (Auto) 2.9 x10^3uL (1.8-7.7) Lymphocytes # (Auto) 5.8 x10^3/uL (1.0-4.8) Monocytes # (Auto) 1.3 x10^3/uL (0.0-1.1) Eosinophils # (Auto) 0.7 x10^3/uL (0.0-0.7) Basophils # (Auto) 0.1 x10^3/uL (0.0-0.2) Sodium Level 140 mmol/L (136-145) Potassium Level 3.8 mmol/L (3.5-5.1) Chloride Level 103 mmol/L (98-107) Carbon Dioxide Level 28 mmol/L (21-32) Anion Gap 9 (6-14) Blood Urea Nitrogen 12 mg/dL (7-20) Creatinine 0.7 mg/dL (0.6-1.0) Estimated GFR (Cockcroft-Gault) 89.3 BUN/Creatinine Ratio 17 (6-20) Glucose Level 94 mg/dL (70-99) Calcium Level 8.7 mg/dL (8.5-10.1) Total Bilirubin 0.3 mg/dL (0.2-1.0) Aspartate Amino Transf (AST/SGOT) 48 U/L (15-37) Alanine Aminotransferase (ALT/SGPT) 66 U/L (14-59) Alkaline Phosphatase 69 U/L (46-116) Total Protein 6.9 g/dL (6.4-8.2) Albumin 3.2 g/dL (3.4-5.0) Albumin/Globulin Ratio 0.9 (1.0-1.7) Medications Current Medications Hydromorphone HCl (Dilaudid) 1 mg 1X ONCE IV Last administered on 06/04/17 18:36; Start 06/04/17 at 18:30; Stop 06/04/17 at 18:32; Status DC Hydromorphone HCl (Dilaudid) 1 mg 1X ONCE IV Last administered on 06/04/17 19:58; Start 06/04/17 at 20:00; Stop 06/04/17 at 20:01; Status DC Haloperidol Lactate (Haldol) 5 mg 1X ONCE IVP Last administered on 06/05/17 00:39; Start 06/05/17 at 00:15; Stop 06/05/17 at 00:16; Status DC Ondansetron HCl (Zofran) 4 mg PRN Q8HRS PRN IV NAUSEA/VOMITING; Start at 00:00; Stop 06/05/17 at 23:59; Status DC Fentanyl Citrate (Fentanyl 2ml Vial) 50 mcg PRN Q1HR PRN IV PAIN Last administered on 06/05/17 20:44; Start 06/05/17 at 00:00; Stop 06/05/17 at 23 :59; Status DC Acetaminophen (Tylenol) 650 mg PRN Q4HRS PRN PO FEVER Last administered on 10:02; Start 06/05/17 at 00:00; Stop 06/05/17 at 23:59; Status DC Diazepam (Valium) 5 mg 1X ONCE PO Last administered on 06/05/17 18:24; Start 06/05/17 at 14:00; Stop 06/05/17 at 14:01; Status DC Atorvastatin Calcium (Lipitor) 20 mg DAILY PO ; Start 06/06/17 at 09:00; Stop 06/07/17 at 08:54; Status DC Cetirizine HCl (ZyrTEC) 10 mg HS PO Last administered on 06/12/17 20:50; Start 06/05/17 at 21:00 Pseudoephedrine HCl (Sudafed 12-Hour) 120 mg BID PO Last administered on 20:50; Start 06/05/17 at 21:00 Non-Formulary Medication 1 puff PRN Q4HRS PRN INH SHORTNESS OF BREATH; Start 06/05/17 at 16:15; Status UNV Non-Formulary Medication 1 tab DAILY PO ; Start 06/06/17 at 09:00; Status UNV Fluticasone Propionate (Flonase) 2 spray DAILY NS Last administered on 08:26; Start 06/06/17 at 09:00 Non-Formulary Medication 1 tab DAILY PO ; Start 06/06/17 at 09:00; Status UNV Pantoprazole Sodium (Protonix) 40 mg DAILYAC PO Last administered on 08:26; Start 06/06/17 at 07:30 Multivit/ Folic Acid/Iron (Multivitamin ) 1 tab DAILY PO ; Start 06/06/17 at 09:00; Stop 06/07/17 at 08:54; Status DC Famotidine (Pepcid) 20 mg QHS PO Last administered on 06/12/17 20:50; Start 06/05/17 at 21:00 Albuterol Sulfate (Ventolin Neb Soln) 2.5 mg PRN Q6HRS PRN NEB SHORTNESS OF BREATH; Start 06/05/17 at 16:15 Diazepam (Valium) 5 mg 1X ONCE PO Last administered on 06/05/17 18:25; Start 06/05/17 at 18:30; Stop 06/05/17 at 18:31; Status DC Acetaminophen (Tylenol) 650 mg PRN Q6HRS PRN PO HEADACHE Last administered on 06/10/17 11:07; Start 06/06/17 at 03:00 Oxycodone/ Acetaminophen (Percocet 5/325) 1 tab PRN Q4HRS PRN PO PAIN Last administered on 06/08/17 16:55; Start 06/06/17 at 10:15; Stop 06/08/17 at 18 :25; Status DC Fentanyl Citrate (Fentanyl 2ml Vial) 50 mcg PRN Q2HR PRN IV PAIN Last administered on 06/08/17 04:03; Start 06/06/17 at 10:15 Ketorolac Tromethamine (Toradol) 15 mg PRN Q6HRS PRN IV PAIN Last administered on 06/10/17 17:56; Start 06/06/17 at 10:15; Stop 06/11/17 at 10:14; Status DC Atorvastatin Calcium (Lipitor) 20 mg QHS PO Last administered on 06/12/17 20: 50; Start 06/07/17 at 21:00 Multivit/ Folic Acid/Iron (Multivitamin ) 1 tab QHS PO Last administered on 06/12/17 20:50; Start 06/07/17 at 21:00 Diazepam (Valium) 5 mg 1X ONCE PO Last administered on 06/07/17 13:28; Start 06/07/17 at 11:30; Stop 06/07/17 at 11:31; Status DC Azithromycin (Zithromax) 500 mg 1X ONCE PO Last administered on 06/08/17 16: 55; Start 06/08/17 at 15:00; Stop 06/08/17 at 15:01; Status DC Azithromycin (Zithromax) 250 mg DAILY PO Last administered on 06/12/17 08:26 ; Start 06/09/17 at 09:00 Lactobacillus Rhamnosus (Culturelle) 1 cap BID PO Last administered on 20:50; Start 06/08/17 at 21:00 Diclofenac Sodium (Voltaren) 1 chantal BID TP Last administered on 06/12/17 20:55 ; Start 06/08/17 at 21:00 Gabapentin (Neurontin) 300 mg TID PO Last administered on 06/12/17 20:50; Start 06/08/17 at 21:00 Oxycodone/ Acetaminophen (Percocet 10/325) 1 tab PRN Q4HRS PRN PO PAIN Last administered on 06/13/17 03:24; Start 06/08/17 at 18:30 Cyclobenzaprine HCl (Flexeril) 10 mg Q6HRS PO ; Start 06/09/17 at 18:00; Stop 06/09/17 at 18:00; Status DC Alprazolam (Xanax) 0.5 mg PRN Q8HRS PRN PO ANXIETY / AGITATION Last administered on 06/10/17 17:55; Start 06/08/17 at 18:30 Baclofen (Lioresal) 10 mg TID PO Last administered on 06/12/17 20:50; Start 06/09/17 at 10:00 Enoxaparin Sodium (Lovenox 40mg Syringe) 40 mg Q24H SQ Last administered on 20:55; Start 06/10/17 at 21:00 Active Scripts Active Reported Vitamins ( Vits W-Ca,Fe,Fa(<1MG)) 1 Each Tablet 1 Tab PO DAILY Sudafed 12-Hour (Pseudoephedrine Hcl) 120 Mg Tablet.er 1 Tab PO BID Atorvastatin Calcium 20 Mg Tablet 1 Tab PO DAILY Ortho-Novum (Norethindrone-Ethinyl Estrad) 1 Each Tablet 1 Tab PO DAILY Flonase Allergy Relief (Fluticasone Propionate) 9.9 Ml [place].susp 2 Sprays NS DAILY Proair Hfa Inhaler (Albuterol Sulfate) 8.5 Gm Hfa.aer.ad 1 Puff INH PRN Q4HRS PRN Prilosec Otc (Omeprazole Magnesium) 20 Mg Tablet.dr 1 Tab PO DAILY Zantac (Ranitidine Hcl) 300 Mg Tablet 1 Tab PO QHS Zyrtec (Cetirizine Hcl) 10 Mg Tablet 10 Mg PO HS Jayshree-D 24 Hour Tablet (Fexofenadine/Pseudoephedrine) 1 Each Tab.er.24h 1 Tab PO DAILY Vitals/I & O Vital Sign - Last 24 Hours 06/12/17 06/12/17 06/12/17 06/12/17 10:52 13:41 14:44 15:28 Temp 98.1 97.5 98.1 97.5 Pulse 106 102 Resp 16 16 B/P (MAP) 113/70 (84) 139/86 (103) Pulse Ox 94 94 94 96 O2 Delivery Room Air Room Air Room Air 06/12/17 06/12/17 06/12/17 06/12/17 19:00 20:00 20:51 23:23 Temp 98.0 98.2 98.0 98.2 Pulse 102 100 Resp 18 18 B/P (MAP) 117/63 (81) 119/77 (91) Pulse Ox 96 92 O2 Delivery Room Air Room Air Room Air Room Air 06/13/17 06/13/17 06/13/17 06/13/17 03:00 03:24 04:24 07:45 Temp 97.8 98.2 97.8 98.2 Pulse 94 93 Resp 18 16 B/P (MAP) 139/73 (95) 125/64 (84) Pulse Ox 94 94 O2 Delivery Room Air Room Air Room Air Room Air Intake and Output 06/12/17 06/12/17 06/13/17 15:00 23:00 07:00 Intake Total 230 ml 600 ml 900 ml Balance 230 ml 600 ml 900 ml TAMERA SCHULTZ III DO Jun 13, 2017 08:43
[2017-06-13] MEDS: DICLOFENAC SODIUM 1% TOPICAL GEL 100GM TUBE. TP SCH ×2 (08:44→21:00)
--- NOTE | 2017-06-13 10:31 | PDOC ---
PROGRESS NOTES Subjective Subjective She still admits pain in her right foot,especially at night. Objective Objective Vital Signs Date Time Temp Pulse Resp B/P (MAP) Pulse Ox O2 Delivery O2 Flow Rate FiO2 06/13/17 09:54 94 Room Air 06/13/17 07:45 98.2 93 16 125/64 (84) 98.2 Intake and Output 06/13/17 07:00 Intake Total 1730 ml Balance 1730 ml Intake Oral 1730 ml # Voids 8 Physical Exam Physical Exam She is alert,sitting in bedside chair and in no acute distress and she had cam walker brace in place to right ankle.She did well with physical therapy with mobility at roller walker level,including managing stairs. Assessment Assessment Problems Medical Problems: (1) Intractable neuropathic pain of right lower extremity Status: Acute Plan Plan of Care Agree with plans for transfer to SNF as she is concerned about her 13 year old with asperberger's syndrome,who runs around might run into her while up with walker and cam boot. Comment Review of Relevant I have reviewed the following items dalila (where applicable) has been applied. Labs Laboratory Tests Test 06/12/17 03:05 06/13/17 04:15 White Blood Count 10.4 x10^3/uL (4.0-11.0) 10.8 x10^3/uL (4.0-11.0) Red Blood Count 4.36 x10^6/uL (3.50-5.40) 4.27 x10^6/uL (3.50-5.40) Hemoglobin 13.8 g/dL (12.0-15.5) 13.2 g/dL (12.0-15.5) Hematocrit 40.8 % (36.0-47.0) 39.9 % (36.0-47.0) Mean Corpuscular Volume 94 fL (79-100) 94 fL (79-100) Mean Corpuscular Hemoglobin 32 pg (25-35) 31 pg (25-35) Mean Corpuscular Hemoglobin Concent 34 g/dL (31-37) 33 g/dL (31-37) Red Cell Distribution Width 13.5 % (11.5-14.5) 13.3 % (11.5-14.5) Platelet Count 486 x10^3/uL (140-400) 477 x10^3/uL (140-400) Neutrophils (%) (Auto) 27 % (31-73) 27 % (31-73) Lymphocytes (%) (Auto) 56 % (24-48) 54 % (24-48) Monocytes (%) (Auto) 10 % (0-9) 12 % (0-9) Eosinophils (%) (Auto) 6 % (0-3) 6 % (0-3) Basophils (%) (Auto) 1 % (0-3) 1 % (0-3) Neutrophils # (Auto) 2.8 x10^3uL (1.8-7.7) 2.9 x10^3uL (1.8-7.7) Lymphocytes # (Auto) 5.8 x10^3/uL (1.0-4.8) 5.8 x10^3/uL (1.0-4.8) Monocytes # (Auto) 1.0 x10^3/uL (0.0-1.1) 1.3 x10^3/uL (0.0-1.1) Eosinophils # (Auto) 0.6 x10^3/uL (0.0-0.7) 0.7 x10^3/uL (0.0-0.7) Basophils # (Auto) 0.1 x10^3/uL (0.0-0.2) 0.1 x10^3/uL (0.0-0.2) Sodium Level 140 mmol/L (136-145) 140 mmol/L (136-145) Potassium Level 3.9 mmol/L (3.5-5.1) 3.8 mmol/L (3.5-5.1) Chloride Level 103 mmol/L (98-107) 103 mmol/L (98-107) Carbon Dioxide Level 29 mmol/L (21-32) 28 mmol/L (21-32) Anion Gap 8 (6-14) 9 (6-14) Blood Urea Nitrogen 16 mg/dL (7-20) 12 mg/dL (7-20) Creatinine 0.8 mg/dL (0.6-1.0) 0.7 mg/dL (0.6-1.0) Estimated GFR (Cockcroft-Gault) 76.6 89.3 BUN/Creatinine Ratio 20 (6-20) 17 (6-20) Glucose Level 88 mg/dL (70-99) 94 mg/dL (70-99) Calcium Level 8.6 mg/dL (8.5-10.1) 8.7 mg/dL (8.5-10.1) Total Bilirubin 0.3 mg/dL (0.2-1.0) 0.3 mg/dL (0.2-1.0) Aspartate Amino Transf (AST/SGOT) 40 U/L (15-37) 48 U/L (15-37) Alanine Aminotransferase (ALT/SGPT) 61 U/L (14-59) 66 U/L (14-59) Alkaline Phosphatase 69 U/L (46-116) 69 U/L (46-116) Total Protein 7.3 g/dL (6.4-8.2) 6.9 g/dL (6.4-8.2) Albumin 3.2 g/dL (3.4-5.0) 3.2 g/dL (3.4-5.0) Albumin/Globulin Ratio 0.8 (1.0-1.7) 0.9 (1.0-1.7) Laboratory Tests Test 06/13/17 04:15 White Blood Count 10.8 x10^3/uL (4.0-11.0) Red Blood Count 4.27 x10^6/uL (3.50-5.40) Hemoglobin 13.2 g/dL (12.0-15.5) Hematocrit 39.9 % (36.0-47.0) Mean Corpuscular Volume 94 fL (79-100) Mean Corpuscular Hemoglobin 31 pg (25-35) Mean Corpuscular Hemoglobin Concent 33 g/dL (31-37) Red Cell Distribution Width 13.3 % (11.5-14.5) Platelet Count 477 x10^3/uL (140-400) Neutrophils (%) (Auto) 27 % (31-73) Lymphocytes (%) (Auto) 54 % (24-48) Monocytes (%) (Auto) 12 % (0-9) Eosinophils (%) (Auto) 6 % (0-3) Basophils (%) (Auto) 1 % (0-3) Neutrophils # (Auto) 2.9 x10^3uL (1.8-7.7) Lymphocytes # (Auto) 5.8 x10^3/uL (1.0-4.8) Monocytes # (Auto) 1.3 x10^3/uL (0.0-1.1) Eosinophils # (Auto) 0.7 x10^3/uL (0.0-0.7) Basophils # (Auto) 0.1 x10^3/uL (0.0-0.2) Sodium Level 140 mmol/L (136-145) Potassium Level 3.8 mmol/L (3.5-5.1) Chloride Level 103 mmol/L (98-107) Carbon Dioxide Level 28 mmol/L (21-32) Anion Gap 9 (6-14) Blood Urea Nitrogen 12 mg/dL (7-20) Creatinine 0.7 mg/dL (0.6-1.0) Estimated GFR (Cockcroft-Gault) 89.3 BUN/Creatinine Ratio 17 (6-20) Glucose Level 94 mg/dL (70-99) Calcium Level 8.7 mg/dL (8.5-10.1) Total Bilirubin 0.3 mg/dL (0.2-1.0) Aspartate Amino Transf (AST/SGOT) 48 U/L (15-37) Alanine Aminotransferase (ALT/SGPT) 66 U/L (14-59) Alkaline Phosphatase 69 U/L (46-116) Total Protein 6.9 g/dL (6.4-8.2) Albumin 3.2 g/dL (3.4-5.0) Albumin/Globulin Ratio 0.9 (1.0-1.7) Medications Current Medications Hydromorphone HCl (Dilaudid) 1 mg 1X ONCE IV Last administered on 06/04/17 18:36; Start 06/04/17 at 18:30; Stop 06/04/17 at 18:32; Status DC Hydromorphone HCl (Dilaudid) 1 mg 1X ONCE IV Last administered on 06/04/17 19:58; Start 06/04/17 at 20:00; Stop 06/04/17 at 20:01; Status DC Haloperidol Lactate (Haldol) 5 mg 1X ONCE IVP Last administered on 06/05/17 00:39; Start 06/05/17 at 00:15; Stop 06/05/17 at 00:16; Status DC Ondansetron HCl (Zofran) 4 mg PRN Q8HRS PRN IV NAUSEA/VOMITING; Start at 00:00; Stop 06/05/17 at 23:59; Status DC Fentanyl Citrate (Fentanyl 2ml Vial) 50 mcg PRN Q1HR PRN IV PAIN Last administered on 06/05/17 20:44; Start 06/05/17 at 00:00; Stop 06/05/17 at 23 :59; Status DC Acetaminophen (Tylenol) 650 mg PRN Q4HRS PRN PO FEVER Last administered on 10:02; Start 06/05/17 at 00:00; Stop 06/05/17 at 23:59; Status DC Diazepam (Valium) 5 mg 1X ONCE PO Last administered on 06/05/17 18:24; Start 06/05/17 at 14:00; Stop 06/05/17 at 14:01; Status DC Atorvastatin Calcium (Lipitor) 20 mg DAILY PO ; Start 06/06/17 at 09:00; Stop 06/07/17 at 08:54; Status DC Cetirizine HCl (ZyrTEC) 10 mg HS PO Last administered on 06/12/17 20:50; Start 06/05/17 at 21:00 Pseudoephedrine HCl (Sudafed 12-Hour) 120 mg BID PO Last administered on 08:42; Start 06/05/17 at 21:00 Non-Formulary Medication 1 puff PRN Q4HRS PRN INH SHORTNESS OF BREATH; Start 06/05/17 at 16:15; Status UNV Non-Formulary Medication 1 tab DAILY PO ; Start 06/06/17 at 09:00; Status UNV Fluticasone Propionate (Flonase) 2 spray DAILY NS Last administered on 08:42; Start 06/06/17 at 09:00 Non-Formulary Medication 1 tab DAILY PO ; Start 06/06/17 at 09:00; Status UNV Pantoprazole Sodium (Protonix) 40 mg DAILYAC PO Last administered on 08:42; Start 06/06/17 at 07:30 Multivit/ Folic Acid/Iron (Multivitamin ) 1 tab DAILY PO ; Start 06/06/17 at 09:00; Stop 06/07/17 at 08:54; Status DC Famotidine (Pepcid) 20 mg QHS PO Last administered on 06/12/17 20:50; Start 06/05/17 at 21:00 Albuterol Sulfate (Ventolin Neb Soln) 2.5 mg PRN Q6HRS PRN NEB SHORTNESS OF BREATH; Start 06/05/17 at 16:15 Diazepam (Valium) 5 mg 1X ONCE PO Last administered on 06/05/17 18:25; Start 06/05/17 at 18:30; Stop 06/05/17 at 18:31; Status DC Acetaminophen (Tylenol) 650 mg PRN Q6HRS PRN PO HEADACHE Last administered on 06/10/17 11:07; Start 06/06/17 at 03:00 Oxycodone/ Acetaminophen (Percocet 5/325) 1 tab PRN Q4HRS PRN PO PAIN Last administered on 06/08/17 16:55; Start 06/06/17 at 10:15; Stop 06/08/17 at 18 :25; Status DC Fentanyl Citrate (Fentanyl 2ml Vial) 50 mcg PRN Q2HR PRN IV PAIN Last administered on 06/08/17 04:03; Start 06/06/17 at 10:15 Ketorolac Tromethamine (Toradol) 15 mg PRN Q6HRS PRN IV PAIN Last administered on 06/10/17 17:56; Start 06/06/17 at 10:15; Stop 06/11/17 at 10:14; Status DC Atorvastatin Calcium (Lipitor) 20 mg QHS PO Last administered on 06/12/17 20: 50; Start 06/07/17 at 21:00 Multivit/ Folic Acid/Iron (Multivitamin ) 1 tab QHS PO Last administered on 06/12/17 20:50; Start 06/07/17 at 21:00 Diazepam (Valium) 5 mg 1X ONCE PO Last administered on 06/07/17 13:28; Start 06/07/17 at 11:30; Stop 06/07/17 at 11:31; Status DC Azithromycin (Zithromax) 500 mg 1X ONCE PO Last administered on 06/08/17 16: 55; Start 06/08/17 at 15:00; Stop 06/08/17 at 15:01; Status DC Azithromycin (Zithromax) 250 mg DAILY PO Last administered on 06/13/17 08:42 ; Start 06/09/17 at 09:00 Lactobacillus Rhamnosus (Culturelle) 1 cap BID PO Last administered on 08:42; Start 06/08/17 at 21:00 Diclofenac Sodium (Voltaren) 1 chantal BID TP Last administered on 06/13/17 08:44 ; Start 06/08/17 at 21:00 Gabapentin (Neurontin) 300 mg TID PO Last administered on 06/13/17 08:42; Start 06/08/17 at 21:00 Oxycodone/ Acetaminophen (Percocet 10/325) 1 tab PRN Q4HRS PRN PO PAIN Last administered on 06/13/17 08:43; Start 06/08/17 at 18:30 Cyclobenzaprine HCl (Flexeril) 10 mg Q6HRS PO ; Start 06/09/17 at 18:00; Stop 06/09/17 at 18:00; Status DC Alprazolam (Xanax) 0.5 mg PRN Q8HRS PRN PO ANXIETY / AGITATION Last administered on 06/10/17 17:55; Start 06/08/17 at 18:30 Baclofen (Lioresal) 10 mg TID PO Last administered on 06/13/17 08:43; Start 06/09/17 at 10:00 Enoxaparin Sodium (Lovenox 40mg Syringe) 40 mg Q24H SQ Last administered on 20:55; Start 06/10/17 at 21:00 Active Scripts Active Reported Vitamins ( Vits W-Ca,Fe,Fa(<1MG)) 1 Each Tablet 1 Tab PO DAILY Sudafed 12-Hour (Pseudoephedrine Hcl) 120 Mg Tablet.er 1 Tab PO BID Atorvastatin Calcium 20 Mg Tablet 1 Tab PO DAILY Ortho-Novum (Norethindrone-Ethinyl Estrad) 1 Each Tablet 1 Tab PO DAILY Flonase Allergy Relief (Fluticasone Propionate) 9.9 Ml [place].susp 2 Sprays NS DAILY Proair Hfa Inhaler (Albuterol Sulfate) 8.5 Gm Hfa.aer.ad 1 Puff INH PRN Q4HRS PRN Prilosec Otc (Omeprazole Magnesium) 20 Mg Tablet.dr 1 Tab PO DAILY Zantac (Ranitidine Hcl) 300 Mg Tablet 1 Tab PO QHS Zyrtec (Cetirizine Hcl) 10 Mg Tablet 10 Mg PO HS Jayshree-D 24 Hour Tablet (Fexofenadine/Pseudoephedrine) 1 Each Tab.er.24h 1 Tab PO DAILY Vitals/I & O Vital Sign - Last 24 Hours 06/12/17 06/12/17 06/12/17 06/12/17 10:52 13:41 15:28 19:00 Temp 98.1 97.5 98.0 98.1 97.5 98.0 Pulse 106 102 102 Resp 16 16 18 B/P (MAP) 113/70 (84) 139/86 (103) 117/63 (81) Pulse Ox 94 94 96 96 O2 Delivery Room Air Room Air Room Air Room Air 06/12/17 06/12/17 06/12/17 06/13/17 20:00 20:51 23:23 03:00 Temp 98.2 97.8 98.2 97.8 Pulse 100 94 Resp 18 18 B/P (MAP) 119/77 (91) 139/73 (95) Pulse Ox 92 94 O2 Delivery Room Air Room Air Room Air Room Air 06/13/17 06/13/17 06/13/17 06/13/17 03:24 07:45 08:00 08:43 Temp 98.2 98.2 Pulse 93 Resp 16 B/P (MAP) 125/64 (84) Pulse Ox 94 94 O2 Delivery Room Air Room Air Room Air Room Air 06/13/17 09:54 Pulse Ox 94 O2 Delivery Room Air Intake and Output 06/12/17 06/12/17 06/13/17 15:00 23:00 07:00 Intake Total 230 ml 600 ml 900 ml Balance 230 ml 600 ml 900 ml KIKI KENNY MD Jun 13, 2017 10:30
[2017-06-13 11:18] VITALS: BP 119/79
[2017-06-13 15:00] VITALS: BP 127/78
[2017-06-13 19:00] VITALS: BP 131/81
[2017-06-13] MEDS: FAMOTIDINE 20 MG TABLET. PO SCH (20:56)
[2017-06-13] MEDS: ENOXAPARIN 40 MG/0.4 ML SYRINGE. SQ SCH (20:56)
[2017-06-13] MEDS: PRENATAL MULTIVITAMIN TABLET. PO SCH (20:56)
[2017-06-13] MEDS: ATORVASTATIN CALCIUM 20 MG TABLET PO SCH (20:57)
[2017-06-13] MEDS: CETIRIZINE HCL 10 MG TABLET. PO SCH (20:57)
[2017-06-13 23:20] VITALS: BP 117/60
[2017-06-14] MEDS: oxyCODONE/APAP 10/325 1 TAB TABLET PO PRN (02:57)
[2017-06-14 03:05] VITALS: BP 111/64
[2017-06-14 04:27] LABS: BASO # 0.1 x10^3/uL (0.0-0.2); BASO % 1 % (0-3); EOS % 6 % (0-3); HEMATOCRIT 40.7 % (36.0-47.0); HEMOGLOBIN 13.6 g/dL (12.0-15.5); LYMPH # 4.4 x10^3/uL (1.0-4.8); LYMPH % 43 % (24-48); MEAN CORPUSCULAR HEMOGLOBIN 31 pg (25-35); MEAN CORPUSCULAR HGB CONC 33 g/dL (31-37); MEAN CORPUSCULAR VOLUME 93 fL (79-100); MONO % 11 % (0-9); NEUT % 39 % (31-73); PLATELET COUNT 478 x10^3/uL (140-400); RED BLOOD COUNT 4.36 x10^6/uL (3.50-5.40); RED CELL DISTRIBUTION WIDTH 13.3 % (11.5-14.5); WHITE BLOOD COUNT 10.3 x10^3/uL (4.0-11.0)
[2017-06-14 05:51] LABS: ALBUMIN 3.3 g/dL (3.4-5.0); ALBUMIN/GLOBULIN RATIO 0.8 (1.0-1.7); CALCIUM 8.4 mg/dL (8.5-10.1); CREATININE 0.8 mg/dL (0.6-1.0); GFR 76.6; POTASSIUM 3.9 mmol/L (3.5-5.1); TOTAL BILIRUBIN 0.2 mg/dL (0.2-1.0); TOTAL PROTEIN 7.2 g/dL (6.4-8.2)
[2017-06-14 07:00] VITALS: BP 125/78
[2017-06-14] MEDS: FLUTICASONE 50MCG/NASAL SPRAY 16GM BOTTLE. NS SCH (09:00)
[2017-06-14] MEDS: DICLOFENAC SODIUM 1% TOPICAL GEL 100GM TUBE. TP SCH ×2 (09:00→21:00)
[2017-06-14] MEDS: PANTOPRAZOLE 40 MG TABLET.DR. PO SCH (11:07)
[2017-06-14] MEDS: LACTOBACILLUS RHAMNOSUS GG 1 CAPSULE. PO SCH ×2 (11:07→21:00)
[2017-06-14] MEDS: GABAPENTIN 300 MG CAPSULE. PO SCH ×3 (11:07→20:55)
[2017-06-14] MEDS: AZITHROMYCIN 250 MG TABLET. PO SCH (11:07)
[2017-06-14] MEDS: PSEUDOEPHEDRINE ER 120 MG TABLET.ER. PO SCH ×2 (11:07→20:55)
[2017-06-14] MEDS: BACLOFEN 10 MG TABLET. PO SCH ×3 (11:07→20:55)
[2017-06-14 11:23] VITALS: BP 118/72
--- NOTE | 2017-06-14 13:25 | PDOC ---
PROGRESS NOTES Chief Complaint Chief Complaint acute right leg pain right nondisplaced proximal fibula fracture right labral tear R trochanteric and hamstring bursitis L3-4 posterior annular tear fibromyalgia obesity, BMI 33 gastroesophageal reflux disease allergies, asthma History of Present Illness History of Present Illness Pt seen and examined at bedside, No acute overnight events. Pt complains of m pain and spasms and is on baclofen. Otherwise no other complaints. U/s for DVT neg, Discharge to SNF likely 06/16 Vitals Vitals Vital Signs Date Time Temp Pulse Resp B/P (MAP) Pulse Ox O2 Delivery O2 Flow Rate FiO2 06/14/17 11:23 97.6 82 17 118/72 (87) 97 Room Air 97.6 Physical Exam General: Alert, Oriented X3, Cooperative, mild distress Heart: Regular rate, Normal S1, No murmurs Lungs: Clear Abdomen: Soft Extremities: No clubbing, No cyanosis, No edema, Normal pulses, Other (R LE knee brace and ankle brace in place) Skin: No rashes, No breakdown, No significant lesion Labs LABS Laboratory Tests Test 06/14/17 03:40 White Blood Count 10.3 x10^3/uL (4.0-11.0) Red Blood Count 4.36 x10^6/uL (3.50-5.40) Hemoglobin 13.6 g/dL (12.0-15.5) Hematocrit 40.7 % (36.0-47.0) Mean Corpuscular Volume 93 fL (79-100) Mean Corpuscular Hemoglobin 31 pg (25-35) Mean Corpuscular Hemoglobin Concent 33 g/dL (31-37) Red Cell Distribution Width 13.3 % (11.5-14.5) Platelet Count 478 x10^3/uL (140-400) Neutrophils (%) (Auto) 39 % (31-73) Lymphocytes (%) (Auto) 43 % (24-48) Monocytes (%) (Auto) 11 % (0-9) Eosinophils (%) (Auto) 6 % (0-3) Basophils (%) (Auto) 1 % (0-3) Neutrophils # (Auto) 4.0 x10^3uL (1.8-7.7) Lymphocytes # (Auto) 4.4 x10^3/uL (1.0-4.8) Monocytes # (Auto) 1.2 x10^3/uL (0.0-1.1) Eosinophils # (Auto) 0.6 x10^3/uL (0.0-0.7) Basophils # (Auto) 0.1 x10^3/uL (0.0-0.2) Sodium Level 139 mmol/L (136-145) Potassium Level 3.9 mmol/L (3.5-5.1) Chloride Level 102 mmol/L (98-107) Carbon Dioxide Level 26 mmol/L (21-32) Anion Gap 11 (6-14) Blood Urea Nitrogen 14 mg/dL (7-20) Creatinine 0.8 mg/dL (0.6-1.0) Estimated GFR (Cockcroft-Gault) 76.6 BUN/Creatinine Ratio 18 (6-20) Glucose Level 97 mg/dL (70-99) Calcium Level 8.4 mg/dL (8.5-10.1) Total Bilirubin 0.2 mg/dL (0.2-1.0) Aspartate Amino Transf (AST/SGOT) 62 U/L (15-37) Alanine Aminotransferase (ALT/SGPT) 74 U/L (14-59) Alkaline Phosphatase 70 U/L (46-116) Total Protein 7.2 g/dL (6.4-8.2) Albumin 3.3 g/dL (3.4-5.0) Albumin/Globulin Ratio 0.8 (1.0-1.7) Review of Systems Review of Systems LE discomfort Fatigue Assessment and Plan Assessmemt and Plan Problems Medical Problems: (1) Intractable neuropathic pain of right lower extremity Status: Acute Assessment: acute right leg pain right nondisplaced proximal fibula fracture right labral tear R trochanteric and hamstring bursitis L3-4 posterior annular tear fibromyalgia obesity, BMI 33 gastroesophageal reflux disease allergies, asthma Plan: Increase Baclofen dose to 20mg po tid PT/OT Home meds Appreciate subspecialist input Normal diet Pain control Discharge to SNU Problems: Comment Review of Relevant I have reviewed the following items dalila (where applicable) has been applied. Labs Laboratory Tests Test 06/13/17 04:15 06/14/17 03:40 White Blood Count 10.8 x10^3/uL (4.0-11.0) 10.3 x10^3/uL (4.0-11.0) Red Blood Count 4.27 x10^6/uL (3.50-5.40) 4.36 x10^6/uL (3.50-5.40) Hemoglobin 13.2 g/dL (12.0-15.5) 13.6 g/dL (12.0-15.5) Hematocrit 39.9 % (36.0-47.0) 40.7 % (36.0-47.0) Mean Corpuscular Volume 94 fL (79-100) 93 fL (79-100) Mean Corpuscular Hemoglobin 31 pg (25-35) 31 pg (25-35) Mean Corpuscular Hemoglobin Concent 33 g/dL (31-37) 33 g/dL (31-37) Red Cell Distribution Width 13.3 % (11.5-14.5) 13.3 % (11.5-14.5) Platelet Count 477 x10^3/uL (140-400) 478 x10^3/uL (140-400) Neutrophils (%) (Auto) 27 % (31-73) 39 % (31-73) Lymphocytes (%) (Auto) 54 % (24-48) 43 % (24-48) Monocytes (%) (Auto) 12 % (0-9) 11 % (0-9) Eosinophils (%) (Auto) 6 % (0-3) 6 % (0-3) Basophils (%) (Auto) 1 % (0-3) 1 % (0-3) Neutrophils # (Auto) 2.9 x10^3uL (1.8-7.7) 4.0 x10^3uL (1.8-7.7) Lymphocytes # (Auto) 5.8 x10^3/uL (1.0-4.8) 4.4 x10^3/uL (1.0-4.8) Monocytes # (Auto) 1.3 x10^3/uL (0.0-1.1) 1.2 x10^3/uL (0.0-1.1) Eosinophils # (Auto) 0.7 x10^3/uL (0.0-0.7) 0.6 x10^3/uL (0.0-0.7) Basophils # (Auto) 0.1 x10^3/uL (0.0-0.2) 0.1 x10^3/uL (0.0-0.2) Sodium Level 140 mmol/L (136-145) 139 mmol/L (136-145) Potassium Level 3.8 mmol/L (3.5-5.1) 3.9 mmol/L (3.5-5.1) Chloride Level 103 mmol/L (98-107) 102 mmol/L (98-107) Carbon Dioxide Level 28 mmol/L (21-32) 26 mmol/L (21-32) Anion Gap 9 (6-14) 11 (6-14) Blood Urea Nitrogen 12 mg/dL (7-20) 14 mg/dL (7-20) Creatinine 0.7 mg/dL (0.6-1.0) 0.8 mg/dL (0.6-1.0) Estimated GFR (Cockcroft-Gault) 89.3 76.6 BUN/Creatinine Ratio 17 (6-20) 18 (6-20) Glucose Level 94 mg/dL (70-99) 97 mg/dL (70-99) Calcium Level 8.7 mg/dL (8.5-10.1) 8.4 mg/dL (8.5-10.1) Total Bilirubin 0.3 mg/dL (0.2-1.0) 0.2 mg/dL (0.2-1.0) Aspartate Amino Transf (AST/SGOT) 48 U/L (15-37) 62 U/L (15-37) Alanine Aminotransferase (ALT/SGPT) 66 U/L (14-59) 74 U/L (14-59) Alkaline Phosphatase 69 U/L (46-116) 70 U/L (46-116) Total Protein 6.9 g/dL (6.4-8.2) 7.2 g/dL (6.4-8.2) Albumin 3.2 g/dL (3.4-5.0) 3.3 g/dL (3.4-5.0) Albumin/Globulin Ratio 0.9 (1.0-1.7) 0.8 (1.0-1.7) Laboratory Tests Test 06/14/17 03:40 White Blood Count 10.3 x10^3/uL (4.0-11.0) Red Blood Count 4.36 x10^6/uL (3.50-5.40) Hemoglobin 13.6 g/dL (12.0-15.5) Hematocrit 40.7 % (36.0-47.0) Mean Corpuscular Volume 93 fL (79-100) Mean Corpuscular Hemoglobin 31 pg (25-35) Mean Corpuscular Hemoglobin Concent 33 g/dL (31-37) Red Cell Distribution Width 13.3 % (11.5-14.5) Platelet Count 478 x10^3/uL (140-400) Neutrophils (%) (Auto) 39 % (31-73) Lymphocytes (%) (Auto) 43 % (24-48) Monocytes (%) (Auto) 11 % (0-9) Eosinophils (%) (Auto) 6 % (0-3) Basophils (%) (Auto) 1 % (0-3) Neutrophils # (Auto) 4.0 x10^3uL (1.8-7.7) Lymphocytes # (Auto) 4.4 x10^3/uL (1.0-4.8) Monocytes # (Auto) 1.2 x10^3/uL (0.0-1.1) Eosinophils # (Auto) 0.6 x10^3/uL (0.0-0.7) Basophils # (Auto) 0.1 x10^3/uL (0.0-0.2) Sodium Level 139 mmol/L (136-145) Potassium Level 3.9 mmol/L (3.5-5.1) Chloride Level 102 mmol/L (98-107) Carbon Dioxide Level 26 mmol/L (21-32) Anion Gap 11 (6-14) Blood Urea Nitrogen 14 mg/dL (7-20) Creatinine 0.8 mg/dL (0.6-1.0) Estimated GFR (Cockcroft-Gault) 76.6 BUN/Creatinine Ratio 18 (6-20) Glucose Level 97 mg/dL (70-99) Calcium Level 8.4 mg/dL (8.5-10.1) Total Bilirubin 0.2 mg/dL (0.2-1.0) Aspartate Amino Transf (AST/SGOT) 62 U/L (15-37) Alanine Aminotransferase (ALT/SGPT) 74 U/L (14-59) Alkaline Phosphatase 70 U/L (46-116) Total Protein 7.2 g/dL (6.4-8.2) Albumin 3.3 g/dL (3.4-5.0) Albumin/Globulin Ratio 0.8 (1.0-1.7) Medications Current Medications Hydromorphone HCl (Dilaudid) 1 mg 1X ONCE IV Last administered on 06/04/17 18:36; Start 06/04/17 at 18:30; Stop 06/04/17 at 18:32; Status DC Hydromorphone HCl (Dilaudid) 1 mg 1X ONCE IV Last administered on 06/04/17 19:58; Start 06/04/17 at 20:00; Stop 06/04/17 at 20:01; Status DC Haloperidol Lactate (Haldol) 5 mg 1X ONCE IVP Last administered on 06/05/17 00:39; Start 06/05/17 at 00:15; Stop 06/05/17 at 00:16; Status DC Ondansetron HCl (Zofran) 4 mg PRN Q8HRS PRN IV NAUSEA/VOMITING; Start at 00:00; Stop 06/05/17 at 23:59; Status DC Fentanyl Citrate (Fentanyl 2ml Vial) 50 mcg PRN Q1HR PRN IV PAIN Last administered on 06/05/17 20:44; Start 06/05/17 at 00:00; Stop 06/05/17 at 23 :59; Status DC Acetaminophen (Tylenol) 650 mg PRN Q4HRS PRN PO FEVER Last administered on 10:02; Start 06/05/17 at 00:00; Stop 06/05/17 at 23:59; Status DC Diazepam (Valium) 5 mg 1X ONCE PO Last administered on 06/05/17 18:24; Start 06/05/17 at 14:00; Stop 06/05/17 at 14:01; Status DC Atorvastatin Calcium (Lipitor) 20 mg DAILY PO ; Start 06/06/17 at 09:00; Stop 06/07/17 at 08:54; Status DC Cetirizine HCl (ZyrTEC) 10 mg HS PO Last administered on 06/13/17 20:57; Start 06/05/17 at 21:00 Pseudoephedrine HCl (Sudafed 12-Hour) 120 mg BID PO Last administered on 11:07; Start 06/05/17 at 21:00 Non-Formulary Medication 1 puff PRN Q4HRS PRN INH SHORTNESS OF BREATH; Start 06/05/17 at 16:15; Status UNV Non-Formulary Medication 1 tab DAILY PO ; Start 06/06/17 at 09:00; Status UNV Fluticasone Propionate (Flonase) 2 spray DAILY NS Last administered on 09:00; Start 06/06/17 at 09:00 Non-Formulary Medication 1 tab DAILY PO ; Start 06/06/17 at 09:00; Status UNV Pantoprazole Sodium (Protonix) 40 mg DAILYAC PO Last administered on 11:07; Start 06/06/17 at 07:30 Multivit/ Folic Acid/Iron (Multivitamin ) 1 tab DAILY PO ; Start 06/06/17 at 09:00; Stop 06/07/17 at 08:54; Status DC Famotidine (Pepcid) 20 mg QHS PO Last administered on 06/13/17 20:56; Start 06/05/17 at 21:00 Albuterol Sulfate (Ventolin Neb Soln) 2.5 mg PRN Q6HRS PRN NEB SHORTNESS OF BREATH; Start 06/05/17 at 16:15 Diazepam (Valium) 5 mg 1X ONCE PO Last administered on 06/05/17 18:25; Start 06/05/17 at 18:30; Stop 06/05/17 at 18:31; Status DC Acetaminophen (Tylenol) 650 mg PRN Q6HRS PRN PO HEADACHE Last administered on 06/10/17 11:07; Start 06/06/17 at 03:00 Oxycodone/ Acetaminophen (Percocet 5/325) 1 tab PRN Q4HRS PRN PO PAIN Last administered on 06/08/17 16:55; Start 06/06/17 at 10:15; Stop 06/08/17 at 18 :25; Status DC Fentanyl Citrate (Fentanyl 2ml Vial) 50 mcg PRN Q2HR PRN IV PAIN Last administered on 06/08/17 04:03; Start 06/06/17 at 10:15 Ketorolac Tromethamine (Toradol) 15 mg PRN Q6HRS PRN IV PAIN Last administered on 06/10/17 17:56; Start 06/06/17 at 10:15; Stop 06/11/17 at 10:14; Status DC Atorvastatin Calcium (Lipitor) 20 mg QHS PO Last administered on 06/13/17 20: 57; Start 06/07/17 at 21:00 Multivit/ Folic Acid/Iron (Multivitamin ) 1 tab QHS PO Last administered on 06/13/17 20:56; Start 06/07/17 at 21:00 Diazepam (Valium) 5 mg 1X ONCE PO Last administered on 06/07/17 13:28; Start 06/07/17 at 11:30; Stop 06/07/17 at 11:31; Status DC Azithromycin (Zithromax) 500 mg 1X ONCE PO Last administered on 06/08/17 16: 55; Start 06/08/17 at 15:00; Stop 06/08/17 at 15:01; Status DC Azithromycin (Zithromax) 250 mg DAILY PO Last administered on 06/14/17 11:07 ; Start 06/09/17 at 09:00 Lactobacillus Rhamnosus (Culturelle) 1 cap BID PO Last administered on 11:07; Start 06/08/17 at 21:00 Diclofenac Sodium (Voltaren) 1 chantal BID TP Last administered on 06/14/17 09:00 ; Start 06/08/17 at 21:00 Gabapentin (Neurontin) 300 mg TID PO Last administered on 06/14/17 11:07; Start 06/08/17 at 21:00 Oxycodone/ Acetaminophen (Percocet 10/325) 1 tab PRN Q4HRS PRN PO PAIN Last administered on 06/14/17 02:57; Start 06/08/17 at 18:30 Cyclobenzaprine HCl (Flexeril) 10 mg Q6HRS PO ; Start 06/09/17 at 18:00; Stop 06/09/17 at 18:00; Status DC Alprazolam (Xanax) 0.5 mg PRN Q8HRS PRN PO ANXIETY / AGITATION Last administered on 06/10/17 17:55; Start 06/08/17 at 18:30 Baclofen (Lioresal) 10 mg TID PO Last administered on 06/14/17 11:07; Start 06/09/17 at 10:00 Enoxaparin Sodium (Lovenox 40mg Syringe) 40 mg Q24H SQ Last administered on 20:56; Start 06/10/17 at 21:00 Active Scripts Active Reported Vitamins ( Vits W-Ca,Fe,Fa(<1MG)) 1 Each Tablet 1 Tab PO DAILY Sudafed 12-Hour (Pseudoephedrine Hcl) 120 Mg Tablet.er 1 Tab PO BID Atorvastatin Calcium 20 Mg Tablet 1 Tab PO DAILY Ortho-Novum (Norethindrone-Ethinyl Estrad) 1 Each Tablet 1 Tab PO DAILY Flonase Allergy Relief (Fluticasone Propionate) 9.9 Ml [place].susp 2 Sprays NS DAILY Proair Hfa Inhaler (Albuterol Sulfate) 8.5 Gm Hfa.aer.ad 1 Puff INH PRN Q4HRS PRN Prilosec Otc (Omeprazole Magnesium) 20 Mg Tablet.dr 1 Tab PO DAILY Zantac (Ranitidine Hcl) 300 Mg Tablet 1 Tab PO QHS Zyrtec (Cetirizine Hcl) 10 Mg Tablet 10 Mg PO HS Jayshree-D 24 Hour Tablet (Fexofenadine/Pseudoephedrine) 1 Each Tab.er.24h 1 Tab PO DAILY Vitals/I & O Vital Sign - Last 24 Hours 06/13/17 06/13/17 06/13/17 06/13/17 14:47 15:00 19:00 20:00 Temp 97.6 98.1 97.6 98.1 Pulse 80 95 Resp 22 B/P (MAP) 127/78 (94) 131/81 (98) Pulse Ox 97 97 99 O2 Delivery Room Air Room Air Room Air Room Air 06/13/17 06/14/17 06/14/17 06/14/17 23:20 02:57 03:05 04:00 Temp 97.9 98.2 97.9 98.2 Pulse 89 93 Resp 16 16 B/P (MAP) 117/60 (79) 111/64 (80) Pulse Ox 97 97 94 94 O2 Delivery Room Air Room Air Room Air Room Air 06/14/17 06/14/17 07:00 11:23 Temp 97.9 97.6 97.9 97.6 Pulse 83 82 Resp 20 17 B/P (MAP) 125/78 (94) 118/72 (87) Pulse Ox 94 97 O2 Delivery Room Air Room Air Intake and Output 06/13/17 06/13/17 06/14/17 14:59 22:59 06:59 Intake Total 480 ml 600 ml Output Total 0 ml Balance 480 ml 600 ml 0 ml TAMERA SCHULTZ III DO Jun 14, 2017 13:25
[2017-06-14 14:34] VITALS: BP 121/88
[2017-06-14 19:25] VITALS: BP 120/72
[2017-06-14] MEDS: PRENATAL MULTIVITAMIN TABLET. PO SCH (20:55)
[2017-06-14] MEDS: ENOXAPARIN 40 MG/0.4 ML SYRINGE. SQ SCH (20:55)
[2017-06-14] MEDS: CETIRIZINE HCL 10 MG TABLET. PO SCH (20:55)
[2017-06-14] MEDS: FAMOTIDINE 20 MG TABLET. PO SCH (20:55)
[2017-06-14] MEDS: ATORVASTATIN CALCIUM 20 MG TABLET PO SCH (20:56)
[2017-06-14 23:39] VITALS: BP 131/71
[2017-06-15] MEDS: oxyCODONE/APAP 10/325 1 TAB TABLET PO PRN ×5 (01:15→20:55)
[2017-06-15 05:44] LABS: BASO # 0.1 x10^3/uL (0.0-0.2); BASO % 1 % (0-3); EOS % 5 % (0-3); HEMATOCRIT 40.4 % (36.0-47.0); HEMOGLOBIN 13.5 g/dL (12.0-15.5); LYMPH # 4.8 x10^3/uL (1.0-4.8); LYMPH % 46 % (24-48); MEAN CORPUSCULAR HEMOGLOBIN 31 pg (25-35); MEAN CORPUSCULAR HGB CONC 34 g/dL (31-37); MEAN CORPUSCULAR VOLUME 93 fL (79-100); MONO % 12 % (0-9); NEUT % 36 % (31-73); PLATELET COUNT 488 x10^3/uL (140-400); RED BLOOD COUNT 4.34 x10^6/uL (3.50-5.40); RED CELL DISTRIBUTION WIDTH 13.1 % (11.5-14.5); WHITE BLOOD COUNT 10.4 x10^3/uL (4.0-11.0)
[2017-06-15 06:11] LABS: ALBUMIN 3.4 g/dL (3.4-5.0); ALBUMIN/GLOBULIN RATIO 0.9 (1.0-1.7); CALCIUM 9.4 mg/dL (8.5-10.1); CREATININE 0.8 mg/dL (0.6-1.0); GFR 76.6; TOTAL BILIRUBIN 0.2 mg/dL (0.2-1.0); TOTAL PROTEIN 7.3 g/dL (6.4-8.2)
[2017-06-15 07:00] VITALS: BP 113/52
[2017-06-15] MEDS: LACTOBACILLUS RHAMNOSUS GG 1 CAPSULE. PO SCH ×2 (08:07→21:06)
[2017-06-15] MEDS: PSEUDOEPHEDRINE ER 120 MG TABLET.ER. PO SCH ×2 (08:07→20:55)
[2017-06-15] MEDS: GABAPENTIN 300 MG CAPSULE. PO SCH ×3 (08:07→20:54)
[2017-06-15] MEDS: PANTOPRAZOLE 40 MG TABLET.DR. PO SCH (08:07)
[2017-06-15] MEDS: FLUTICASONE 50MCG/NASAL SPRAY 16GM BOTTLE. NS SCH (08:08)
[2017-06-15] MEDS: AZITHROMYCIN 250 MG TABLET. PO SCH (08:08)
[2017-06-15] MEDS: DICLOFENAC SODIUM 1% TOPICAL GEL 100GM TUBE. TP SCH ×2 (08:08→21:07)
[2017-06-15] MEDS: BACLOFEN 10 MG TABLET. PO SCH ×3 (08:08→20:54)
--- NOTE | 2017-06-15 10:28 | PDOC ---
PROGRESS NOTES Subjective Subjective She admits continued burning sensation right foot and weakness or right big toe and she felt a pop in her right leg and feels better afterwords. Objective Objective Vital Signs Date Time Temp Pulse Resp B/P (MAP) Pulse Ox O2 Delivery O2 Flow Rate FiO2 06/15/17 09:08 Room Air 06/15/17 07:00 98.2 81 18 113/52 (72) 94 98.2 Intake and Output 06/15/17 07:00 Intake Total 1820 ml Balance 1820 ml Intake Oral 1820 ml # Voids 5 Physical Exam Physical Exam She is alert,sitting up in bedside chair and she continues with decreased sensory perception right peroneal nerve distribution in right foot and no active right big toe dorsiflexion and positive Tinel's sign over right peroneal nerve at fibular neck and tenderness to palpation over sacroiliac joints,right popliteal fossa,lateral aspect of proximal right leg and right foot.She is still limping while up walking with cam walker boot and roller walker. Assessment Assessment Problems Medical Problems: (1) Intractable neuropathic pain of right lower extremity Status: Acute Right peroneal nerve partial lesion in leg with weakness of right big toe dorsiflexors tendinitis and sprain right knee and sprain right foot and ankle Plan Plan of Care To continue present physical and occupational therapy follow up and to SNF or home with home health follow up when medically stable.To consider EMG and Nerve conduction studies on out patient basis in 2 weeks to determine the extent of her right peroneal nerve lesion Comment Review of Relevant I have reviewed the following items dalila (where applicable) has been applied. Labs Laboratory Tests Test 06/14/17 03:40 06/15/17 04:30 White Blood Count 10.3 x10^3/uL (4.0-11.0) 10.4 x10^3/uL (4.0-11.0) Red Blood Count 4.36 x10^6/uL (3.50-5.40) 4.34 x10^6/uL (3.50-5.40) Hemoglobin 13.6 g/dL (12.0-15.5) 13.5 g/dL (12.0-15.5) Hematocrit 40.7 % (36.0-47.0) 40.4 % (36.0-47.0) Mean Corpuscular Volume 93 fL (79-100) 93 fL (79-100) Mean Corpuscular Hemoglobin 31 pg (25-35) 31 pg (25-35) Mean Corpuscular Hemoglobin Concent 33 g/dL (31-37) 34 g/dL (31-37) Red Cell Distribution Width 13.3 % (11.5-14.5) 13.1 % (11.5-14.5) Platelet Count 478 x10^3/uL (140-400) 488 x10^3/uL (140-400) Neutrophils (%) (Auto) 39 % (31-73) 36 % (31-73) Lymphocytes (%) (Auto) 43 % (24-48) 46 % (24-48) Monocytes (%) (Auto) 11 % (0-9) 12 % (0-9) Eosinophils (%) (Auto) 6 % (0-3) 5 % (0-3) Basophils (%) (Auto) 1 % (0-3) 1 % (0-3) Neutrophils # (Auto) 4.0 x10^3uL (1.8-7.7) 3.7 x10^3uL (1.8-7.7) Lymphocytes # (Auto) 4.4 x10^3/uL (1.0-4.8) 4.8 x10^3/uL (1.0-4.8) Monocytes # (Auto) 1.2 x10^3/uL (0.0-1.1) 1.3 x10^3/uL (0.0-1.1) Eosinophils # (Auto) 0.6 x10^3/uL (0.0-0.7) 0.5 x10^3/uL (0.0-0.7) Basophils # (Auto) 0.1 x10^3/uL (0.0-0.2) 0.1 x10^3/uL (0.0-0.2) Sodium Level 139 mmol/L (136-145) 141 mmol/L (136-145) Potassium Level 3.9 mmol/L (3.5-5.1) 4.0 mmol/L (3.5-5.1) Chloride Level 102 mmol/L (98-107) 104 mmol/L (98-107) Carbon Dioxide Level 26 mmol/L (21-32) 27 mmol/L (21-32) Anion Gap 11 (6-14) 10 (6-14) Blood Urea Nitrogen 14 mg/dL (7-20) 12 mg/dL (7-20) Creatinine 0.8 mg/dL (0.6-1.0) 0.8 mg/dL (0.6-1.0) Estimated GFR (Cockcroft-Gault) 76.6 76.6 BUN/Creatinine Ratio 18 (6-20) 15 (6-20) Glucose Level 97 mg/dL (70-99) 96 mg/dL (70-99) Calcium Level 8.4 mg/dL (8.5-10.1) 9.4 mg/dL (8.5-10.1) Total Bilirubin 0.2 mg/dL (0.2-1.0) 0.2 mg/dL (0.2-1.0) Aspartate Amino Transf (AST/SGOT) 62 U/L (15-37) 59 U/L (15-37) Alanine Aminotransferase (ALT/SGPT) 74 U/L (14-59) 84 U/L (14-59) Alkaline Phosphatase 70 U/L (46-116) 82 U/L (46-116) Total Protein 7.2 g/dL (6.4-8.2) 7.3 g/dL (6.4-8.2) Albumin 3.3 g/dL (3.4-5.0) 3.4 g/dL (3.4-5.0) Albumin/Globulin Ratio 0.8 (1.0-1.7) 0.9 (1.0-1.7) Laboratory Tests Test 06/15/17 04:30 White Blood Count 10.4 x10^3/uL (4.0-11.0) Red Blood Count 4.34 x10^6/uL (3.50-5.40) Hemoglobin 13.5 g/dL (12.0-15.5) Hematocrit 40.4 % (36.0-47.0) Mean Corpuscular Volume 93 fL (79-100) Mean Corpuscular Hemoglobin 31 pg (25-35) Mean Corpuscular Hemoglobin Concent 34 g/dL (31-37) Red Cell Distribution Width 13.1 % (11.5-14.5) Platelet Count 488 x10^3/uL (140-400) Neutrophils (%) (Auto) 36 % (31-73) Lymphocytes (%) (Auto) 46 % (24-48) Monocytes (%) (Auto) 12 % (0-9) Eosinophils (%) (Auto) 5 % (0-3) Basophils (%) (Auto) 1 % (0-3) Neutrophils # (Auto) 3.7 x10^3uL (1.8-7.7) Lymphocytes # (Auto) 4.8 x10^3/uL (1.0-4.8) Monocytes # (Auto) 1.3 x10^3/uL (0.0-1.1) Eosinophils # (Auto) 0.5 x10^3/uL (0.0-0.7) Basophils # (Auto) 0.1 x10^3/uL (0.0-0.2) Sodium Level 141 mmol/L (136-145) Potassium Level 4.0 mmol/L (3.5-5.1) Chloride Level 104 mmol/L (98-107) Carbon Dioxide Level 27 mmol/L (21-32) Anion Gap 10 (6-14) Blood Urea Nitrogen 12 mg/dL (7-20) Creatinine 0.8 mg/dL (0.6-1.0) Estimated GFR (Cockcroft-Gault) 76.6 BUN/Creatinine Ratio 15 (6-20) Glucose Level 96 mg/dL (70-99) Calcium Level 9.4 mg/dL (8.5-10.1) Total Bilirubin 0.2 mg/dL (0.2-1.0) Aspartate Amino Transf (AST/SGOT) 59 U/L (15-37) Alanine Aminotransferase (ALT/SGPT) 84 U/L (14-59) Alkaline Phosphatase 82 U/L (46-116) Total Protein 7.3 g/dL (6.4-8.2) Albumin 3.4 g/dL (3.4-5.0) Albumin/Globulin Ratio 0.9 (1.0-1.7) Medications Current Medications Hydromorphone HCl (Dilaudid) 1 mg 1X ONCE IV Last administered on 06/04/17t 18:36; Start 06/04/17 at 18:30; Stop 06/04/17 at 18:32; Status DC Hydromorphone HCl (Dilaudid) 1 mg 1X ONCE IV Last administered on 06/04/17 19:58; Start 06/04/17 at 20:00; Stop 06/04/17 at 20:01; Status DC Haloperidol Lactate (Haldol) 5 mg 1X ONCE IVP Last administered on 06/05/17 00:39; Start 06/05/17 at 00:15; Stop 06/05/17 at 00:16; Status DC Ondansetron HCl (Zofran) 4 mg PRN Q8HRS PRN IV NAUSEA/VOMITING; Start at 00:00; Stop 06/05/17 at 23:59; Status DC Fentanyl Citrate (Fentanyl 2ml Vial) 50 mcg PRN Q1HR PRN IV PAIN Last administered on 06/05/17 20:44; Start 06/05/17 at 00:00; Stop 06/05/17 at 23 :59; Status DC Acetaminophen (Tylenol) 650 mg PRN Q4HRS PRN PO FEVER Last administered on 10:02; Start 06/05/17 at 00:00; Stop 06/05/17 at 23:59; Status DC Diazepam (Valium) 5 mg 1X ONCE PO Last administered on 06/05/17 18:24; Start 06/05/17 at 14:00; Stop 06/05/17 at 14:01; Status DC Atorvastatin Calcium (Lipitor) 20 mg DAILY PO ; Start 06/06/17 at 09:00; Stop 06/07/17 at 08:54; Status DC Cetirizine HCl (ZyrTEC) 10 mg HS PO Last administered on 06/14/17 20:55; Start 06/05/17 at 21:00 Pseudoephedrine HCl (Sudafed 12-Hour) 120 mg BID PO Last administered on 08:07; Start 06/05/17 at 21:00 Non-Formulary Medication 1 puff PRN Q4HRS PRN INH SHORTNESS OF BREATH; Start 06/05/17 at 16:15; Status UNV Non-Formulary Medication 1 tab DAILY PO ; Start 06/06/17 at 09:00; Status UNV Fluticasone Propionate (Flonase) 2 spray DAILY NS Last administered on 08:08; Start 06/06/17 at 09:00 Non-Formulary Medication 1 tab DAILY PO ; Start 06/06/17 at 09:00; Status UNV Pantoprazole Sodium (Protonix) 40 mg DAILYAC PO Last administered on 08:07; Start 06/06/17 at 07:30 Multivit/ Folic Acid/Iron (Multivitamin ) 1 tab DAILY PO ; Start 06/06/17 at 09:00; Stop 06/07/17 at 08:54; Status DC Famotidine (Pepcid) 20 mg QHS PO Last administered on 06/14/17 20:55; Start 06/05/17 at 21:00 Albuterol Sulfate (Ventolin Neb Soln) 2.5 mg PRN Q6HRS PRN NEB SHORTNESS OF BREATH; Start 06/05/17 at 16:15 Diazepam (Valium) 5 mg 1X ONCE PO Last administered on 06/05/17 18:25; Start 06/05/17 at 18:30; Stop 06/05/17 at 18:31; Status DC Acetaminophen (Tylenol) 650 mg PRN Q6HRS PRN PO HEADACHE Last administered on 06/10/17 11:07; Start 06/06/17 at 03:00 Oxycodone/ Acetaminophen (Percocet 5/325) 1 tab PRN Q4HRS PRN PO PAIN Last administered on 06/08/17 16:55; Start 06/06/17 at 10:15; Stop 06/08/17 at 18 :25; Status DC Fentanyl Citrate (Fentanyl 2ml Vial) 50 mcg PRN Q2HR PRN IV PAIN Last administered on 06/08/17 04:03; Start 06/06/17 at 10:15 Ketorolac Tromethamine (Toradol) 15 mg PRN Q6HRS PRN IV PAIN Last administered on 06/10/17 17:56; Start 06/06/17 at 10:15; Stop 06/11/17 at 10:14; Status DC Atorvastatin Calcium (Lipitor) 20 mg QHS PO Last administered on 06/14/17 20: 56; Start 06/07/17 at 21:00 Multivit/ Folic Acid/Iron (Multivitamin ) 1 tab QHS PO Last administered on 06/14/17 20:55; Start 06/07/17 at 21:00 Diazepam (Valium) 5 mg 1X ONCE PO Last administered on 06/07/17 13:28; Start 06/07/17 at 11:30; Stop 06/07/17 at 11:31; Status DC Azithromycin (Zithromax) 500 mg 1X ONCE PO Last administered on 06/08/17 16: 55; Start 06/08/17 at 15:00; Stop 06/08/17 at 15:01; Status DC Azithromycin (Zithromax) 250 mg DAILY PO Last administered on 06/15/17 08:08 ; Start 06/09/17 at 09:00 Lactobacillus Rhamnosus (Culturelle) 1 cap BID PO Last administered on 08:07; Start 06/08/17 at 21:00 Diclofenac Sodium (Voltaren) 1 chantal BID TP Last administered on 06/15/17 08:08 ; Start 06/08/17 at 21:00 Gabapentin (Neurontin) 300 mg TID PO Last administered on 06/15/17 08:07; Start 06/08/17 at 21:00 Oxycodone/ Acetaminophen (Percocet 10/325) 1 tab PRN Q4HRS PRN PO PAIN Last administered on 06/15/17 08:08; Start 06/08/17 at 18:30 Cyclobenzaprine HCl (Flexeril) 10 mg Q6HRS PO ; Start 06/09/17 at 18:00; Stop 06/09/17 at 18:00; Status DC Alprazolam (Xanax) 0.5 mg PRN Q8HRS PRN PO ANXIETY / AGITATION Last administered on 06/10/17 17:55; Start 06/08/17 at 18:30 Baclofen (Lioresal) 10 mg TID PO Last administered on 06/14/17 11:07; Start 06/09/17 at 10:00; Stop 06/14/17 at 13:29; Status DC Enoxaparin Sodium (Lovenox 40mg Syringe) 40 mg Q24H SQ Last administered on 20:55; Start 06/10/17 at 21:00 Baclofen (Lioresal) 20 mg TID PO Last administered on 06/15/17t 08:08; Start 06/14/17 at 14:00 Active Scripts Active Reported Vitamins ( Vits W-Ca,Fe,Fa(<1MG)) 1 Each Tablet 1 Tab PO DAILY Sudafed 12-Hour (Pseudoephedrine Hcl) 120 Mg Tablet.er 1 Tab PO BID Atorvastatin Calcium 20 Mg Tablet 1 Tab PO DAILY Ortho-Novum (Norethindrone-Ethinyl Estrad) 1 Each Tablet 1 Tab PO DAILY Flonase Allergy Relief (Fluticasone Propionate) 9.9 Ml Carlotta.susp 2 Sprays NS DAILY Proair Hfa Inhaler (Albuterol Sulfate) 8.5 Gm Hfa.aer.ad 1 Puff INH PRN Q4HRS PRN Prilosec Otc (Omeprazole Magnesium) 20 Mg Tablet.dr 1 Tab PO DAILY Zantac (Ranitidine Hcl) 300 Mg Tablet 1 Tab PO QHS Zyrtec (Cetirizine Hcl) 10 Mg Tablet 10 Mg PO HS Jayshree-D 24 Hour Tablet (Fexofenadine/Pseudoephedrine) 1 Each Tab.er.24h 1 Tab PO DAILY Vitals/I & O Vital Sign - Last 24 Hours 06/14/17 06/14/17 06/14/17 06/14/17 11:23 14:34 19:25 20:00 Temp 97.6 98.1 98.4 97.6 98.1 98.4 Pulse 82 130 102 Resp 17 18 B/P (MAP) 118/72 (87) 121/88 (99) 120/72 (88) Pulse Ox 97 97 96 O2 Delivery Room Air Room Air Room Air Room Air 06/14/17 06/15/17 06/15/17 06/15/17 23:39 01:15 02:00 03:00 Temp 98.4 98.4 Pulse 94 Resp 18 14 B/P (MAP) 131/71 (91) Pulse Ox 96 96 96 O2 Delivery Room Air Room Air 06/15/17 06/15/17 06/15/17 07:00 08:08 09:08 Temp 98.2 98.2 Pulse 81 Resp 18 B/P (MAP) 113/52 (72) Pulse Ox 94 O2 Delivery Room Air Room Air Room Air Intake and Output 06/14/17 06/14/17 06/15/17 15:00 23:00 07:00 Intake Total 480 ml 1040 ml 300 ml Balance 480 ml 1040 ml 300 ml KIKI KENNY MD Jun 15, 2017 10:28
--- NOTE | 2017-06-15 10:43 | PDOC ---
PROGRESS NOTES Chief Complaint Chief Complaint acute right leg pain right nondisplaced proximal fibula fracture right labral tear R trochanteric and hamstring bursitis L3-4 posterior annular tear fibromyalgia obesity, BMI 33 gastroesophageal reflux disease allergies, asthma History of Present Illness History of Present Illness Pt seen and examined at bedside, No acute overnight events. Pt reports reduction of m pain and spasms following increased dose of baclofen. Otherwise no other complaints. U/s for DVT neg, Discharge to SNF likely 06/16 Vitals Vitals Vital Signs Date Time Temp Pulse Resp B/P (MAP) Pulse Ox O2 Delivery O2 Flow Rate FiO2 06/15/17 09:08 Room Air 06/15/17 07:00 98.2 81 18 113/52 (72) 94 98.2 Physical Exam General: Alert, Oriented X3, Cooperative, mild distress Heart: Regular rate, Normal S1, No murmurs Lungs: Clear Abdomen: Soft Extremities: No clubbing, No cyanosis, No edema, Normal pulses, Other (R LE knee brace and ankle brace in place) Skin: No rashes, No breakdown, No significant lesion Labs LABS Laboratory Tests Test 06/15/17 04:30 White Blood Count 10.4 x10^3/uL (4.0-11.0) Red Blood Count 4.34 x10^6/uL (3.50-5.40) Hemoglobin 13.5 g/dL (12.0-15.5) Hematocrit 40.4 % (36.0-47.0) Mean Corpuscular Volume 93 fL (79-100) Mean Corpuscular Hemoglobin 31 pg (25-35) Mean Corpuscular Hemoglobin Concent 34 g/dL (31-37) Red Cell Distribution Width 13.1 % (11.5-14.5) Platelet Count 488 x10^3/uL (140-400) Neutrophils (%) (Auto) 36 % (31-73) Lymphocytes (%) (Auto) 46 % (24-48) Monocytes (%) (Auto) 12 % (0-9) Eosinophils (%) (Auto) 5 % (0-3) Basophils (%) (Auto) 1 % (0-3) Neutrophils # (Auto) 3.7 x10^3uL (1.8-7.7) Lymphocytes # (Auto) 4.8 x10^3/uL (1.0-4.8) Monocytes # (Auto) 1.3 x10^3/uL (0.0-1.1) Eosinophils # (Auto) 0.5 x10^3/uL (0.0-0.7) Basophils # (Auto) 0.1 x10^3/uL (0.0-0.2) Sodium Level 141 mmol/L (136-145) Potassium Level 4.0 mmol/L (3.5-5.1) Chloride Level 104 mmol/L (98-107) Carbon Dioxide Level 27 mmol/L (21-32) Anion Gap 10 (6-14) Blood Urea Nitrogen 12 mg/dL (7-20) Creatinine 0.8 mg/dL (0.6-1.0) Estimated GFR (Cockcroft-Gault) 76.6 BUN/Creatinine Ratio 15 (6-20) Glucose Level 96 mg/dL (70-99) Calcium Level 9.4 mg/dL (8.5-10.1) Total Bilirubin 0.2 mg/dL (0.2-1.0) Aspartate Amino Transf (AST/SGOT) 59 U/L (15-37) Alanine Aminotransferase (ALT/SGPT) 84 U/L (14-59) Alkaline Phosphatase 82 U/L (46-116) Total Protein 7.3 g/dL (6.4-8.2) Albumin 3.4 g/dL (3.4-5.0) Albumin/Globulin Ratio 0.9 (1.0-1.7) Review of Systems Review of Systems R LE m. pain M. spasm/weakness Assessment and Plan Assessmemt and Plan Problems Medical Problems: (1) Intractable neuropathic pain of right lower extremity Status: Acute Assessment: acute right leg pain right nondisplaced proximal fibula fracture right labral tear R trochanteric and hamstring bursitis L3-4 posterior annular tear fibromyalgia obesity, BMI 33 gastroesophageal reflux disease allergies, asthma Plan: Continue Baclofen dose to 20mg po tid PT/OT Home meds Appreciate subspecialist input Normal diet Pain control Discharge to SNU Problems: Comment Review of Relevant I have reviewed the following items dalila (where applicable) has been applied. Labs Laboratory Tests Test 06/14/17 03:40 06/15/17 04:30 White Blood Count 10.3 x10^3/uL (4.0-11.0) 10.4 x10^3/uL (4.0-11.0) Red Blood Count 4.36 x10^6/uL (3.50-5.40) 4.34 x10^6/uL (3.50-5.40) Hemoglobin 13.6 g/dL (12.0-15.5) 13.5 g/dL (12.0-15.5) Hematocrit 40.7 % (36.0-47.0) 40.4 % (36.0-47.0) Mean Corpuscular Volume 93 fL (79-100) 93 fL (79-100) Mean Corpuscular Hemoglobin 31 pg (25-35) 31 pg (25-35) Mean Corpuscular Hemoglobin Concent 33 g/dL (31-37) 34 g/dL (31-37) Red Cell Distribution Width 13.3 % (11.5-14.5) 13.1 % (11.5-14.5) Platelet Count 478 x10^3/uL (140-400) 488 x10^3/uL (140-400) Neutrophils (%) (Auto) 39 % (31-73) 36 % (31-73) Lymphocytes (%) (Auto) 43 % (24-48) 46 % (24-48) Monocytes (%) (Auto) 11 % (0-9) 12 % (0-9) Eosinophils (%) (Auto) 6 % (0-3) 5 % (0-3) Basophils (%) (Auto) 1 % (0-3) 1 % (0-3) Neutrophils # (Auto) 4.0 x10^3uL (1.8-7.7) 3.7 x10^3uL (1.8-7.7) Lymphocytes # (Auto) 4.4 x10^3/uL (1.0-4.8) 4.8 x10^3/uL (1.0-4.8) Monocytes # (Auto) 1.2 x10^3/uL (0.0-1.1) 1.3 x10^3/uL (0.0-1.1) Eosinophils # (Auto) 0.6 x10^3/uL (0.0-0.7) 0.5 x10^3/uL (0.0-0.7) Basophils # (Auto) 0.1 x10^3/uL (0.0-0.2) 0.1 x10^3/uL (0.0-0.2) Sodium Level 139 mmol/L (136-145) 141 mmol/L (136-145) Potassium Level 3.9 mmol/L (3.5-5.1) 4.0 mmol/L (3.5-5.1) Chloride Level 102 mmol/L (98-107) 104 mmol/L (98-107) Carbon Dioxide Level 26 mmol/L (21-32) 27 mmol/L (21-32) Anion Gap 11 (6-14) 10 (6-14) Blood Urea Nitrogen 14 mg/dL (7-20) 12 mg/dL (7-20) Creatinine 0.8 mg/dL (0.6-1.0) 0.8 mg/dL (0.6-1.0) Estimated GFR (Cockcroft-Gault) 76.6 76.6 BUN/Creatinine Ratio 18 (6-20) 15 (6-20) Glucose Level 97 mg/dL (70-99) 96 mg/dL (70-99) Calcium Level 8.4 mg/dL (8.5-10.1) 9.4 mg/dL (8.5-10.1) Total Bilirubin 0.2 mg/dL (0.2-1.0) 0.2 mg/dL (0.2-1.0) Aspartate Amino Transf (AST/SGOT) 62 U/L (15-37) 59 U/L (15-37) Alanine Aminotransferase (ALT/SGPT) 74 U/L (14-59) 84 U/L (14-59) Alkaline Phosphatase 70 U/L (46-116) 82 U/L (46-116) Total Protein 7.2 g/dL (6.4-8.2) 7.3 g/dL (6.4-8.2) Albumin 3.3 g/dL (3.4-5.0) 3.4 g/dL (3.4-5.0) Albumin/Globulin Ratio 0.8 (1.0-1.7) 0.9 (1.0-1.7) Laboratory Tests Test 06/15/17 04:30 White Blood Count 10.4 x10^3/uL (4.0-11.0) Red Blood Count 4.34 x10^6/uL (3.50-5.40) Hemoglobin 13.5 g/dL (12.0-15.5) Hematocrit 40.4 % (36.0-47.0) Mean Corpuscular Volume 93 fL (79-100) Mean Corpuscular Hemoglobin 31 pg (25-35) Mean Corpuscular Hemoglobin Concent 34 g/dL (31-37) Red Cell Distribution Width 13.1 % (11.5-14.5) Platelet Count 488 x10^3/uL (140-400) Neutrophils (%) (Auto) 36 % (31-73) Lymphocytes (%) (Auto) 46 % (24-48) Monocytes (%) (Auto) 12 % (0-9) Eosinophils (%) (Auto) 5 % (0-3) Basophils (%) (Auto) 1 % (0-3) Neutrophils # (Auto) 3.7 x10^3uL (1.8-7.7) Lymphocytes # (Auto) 4.8 x10^3/uL (1.0-4.8) Monocytes # (Auto) 1.3 x10^3/uL (0.0-1.1) Eosinophils # (Auto) 0.5 x10^3/uL (0.0-0.7) Basophils # (Auto) 0.1 x10^3/uL (0.0-0.2) Sodium Level 141 mmol/L (136-145) Potassium Level 4.0 mmol/L (3.5-5.1) Chloride Level 104 mmol/L (98-107) Carbon Dioxide Level 27 mmol/L (21-32) Anion Gap 10 (6-14) Blood Urea Nitrogen 12 mg/dL (7-20) Creatinine 0.8 mg/dL (0.6-1.0) Estimated GFR (Cockcroft-Gault) 76.6 BUN/Creatinine Ratio 15 (6-20) Glucose Level 96 mg/dL (70-99) Calcium Level 9.4 mg/dL (8.5-10.1) Total Bilirubin 0.2 mg/dL (0.2-1.0) Aspartate Amino Transf (AST/SGOT) 59 U/L (15-37) Alanine Aminotransferase (ALT/SGPT) 84 U/L (14-59) Alkaline Phosphatase 82 U/L (46-116) Total Protein 7.3 g/dL (6.4-8.2) Albumin 3.4 g/dL (3.4-5.0) Albumin/Globulin Ratio 0.9 (1.0-1.7) Medications Current Medications Hydromorphone HCl (Dilaudid) 1 mg 1X ONCE IV Last administered on 06/04/17 18:36; Start 06/04/17 at 18:30; Stop 06/04/17 at 18:32; Status DC Hydromorphone HCl (Dilaudid) 1 mg 1X ONCE IV Last administered on 06/04/17 19:58; Start 06/04/17 at 20:00; Stop 06/04/17 at 20:01; Status DC Haloperidol Lactate (Haldol) 5 mg 1X ONCE IVP Last administered on 06/05/17 00:39; Start 06/05/17 at 00:15; Stop 06/05/17 at 00:16; Status DC Ondansetron HCl (Zofran) 4 mg PRN Q8HRS PRN IV NAUSEA/VOMITING; Start at 00:00; Stop 06/05/17 at 23:59; Status DC Fentanyl Citrate (Fentanyl 2ml Vial) 50 mcg PRN Q1HR PRN IV PAIN Last administered on 06/05/17 20:44; Start 06/05/17 at 00:00; Stop 06/05/17 at 23 :59; Status DC Acetaminophen (Tylenol) 650 mg PRN Q4HRS PRN PO FEVER Last administered on 10:02; Start 06/05/17 at 00:00; Stop 06/05/17 at 23:59; Status DC Diazepam (Valium) 5 mg 1X ONCE PO Last administered on 06/05/17 18:24; Start 06/05/17 at 14:00; Stop 06/05/17 at 14:01; Status DC Atorvastatin Calcium (Lipitor) 20 mg DAILY PO ; Start 06/06/17 at 09:00; Stop 06/07/17 at 08:54; Status DC Cetirizine HCl (ZyrTEC) 10 mg HS PO Last administered on 06/14/17 20:55; Start 06/05/17 at 21:00 Pseudoephedrine HCl (Sudafed 12-Hour) 120 mg BID PO Last administered on 08:07; Start 06/05/17 at 21:00 Non-Formulary Medication 1 puff PRN Q4HRS PRN INH SHORTNESS OF BREATH; Start 06/05/17 at 16:15; Status UNV Non-Formulary Medication 1 tab DAILY PO ; Start 06/06/17 at 09:00; Status UNV Fluticasone Propionate (Flonase) 2 spray DAILY NS Last administered on 08:08; Start 06/06/17 at 09:00 Non-Formulary Medication 1 tab DAILY PO ; Start 06/06/17 at 09:00; Status UNV Pantoprazole Sodium (Protonix) 40 mg DAILYAC PO Last administered on 08:07; Start 06/06/17 at 07:30 Multivit/ Folic Acid/Iron (Multivitamin ) 1 tab DAILY PO ; Start 06/06/17 at 09:00; Stop 06/07/17 at 08:54; Status DC Famotidine (Pepcid) 20 mg QHS PO Last administered on 06/14/17 20:55; Start 06/05/17 at 21:00 Albuterol Sulfate (Ventolin Neb Soln) 2.5 mg PRN Q6HRS PRN NEB SHORTNESS OF BREATH; Start 06/05/17 at 16:15 Diazepam (Valium) 5 mg 1X ONCE PO Last administered on 06/05/17 18:25; Start 06/05/17 at 18:30; Stop 06/05/17 at 18:31; Status DC Acetaminophen (Tylenol) 650 mg PRN Q6HRS PRN PO HEADACHE Last administered on 06/10/17 11:07; Start 06/06/17 at 03:00 Oxycodone/ Acetaminophen (Percocet 5/325) 1 tab PRN Q4HRS PRN PO PAIN Last administered on 06/08/17 16:55; Start 06/06/17 at 10:15; Stop 06/08/17 at 18 :25; Status DC Fentanyl Citrate (Fentanyl 2ml Vial) 50 mcg PRN Q2HR PRN IV PAIN Last administered on 06/08/17 04:03; Start 06/06/17 at 10:15 Ketorolac Tromethamine (Toradol) 15 mg PRN Q6HRS PRN IV PAIN Last administered on 06/10/17 17:56; Start 06/06/17 at 10:15; Stop 06/11/17 at 10:14; Status DC Atorvastatin Calcium (Lipitor) 20 mg QHS PO Last administered on 06/14/17 20: 56; Start 06/07/17 at 21:00 Multivit/ Folic Acid/Iron (Multivitamin ) 1 tab QHS PO Last administered on 06/14/17 20:55; Start 06/07/17 at 21:00 Diazepam (Valium) 5 mg 1X ONCE PO Last administered on 06/07/17 13:28; Start 06/07/17 at 11:30; Stop 06/07/17 at 11:31; Status DC Azithromycin (Zithromax) 500 mg 1X ONCE PO Last administered on 06/08/17 16: 55; Start 06/08/17 at 15:00; Stop 06/08/17 at 15:01; Status DC Azithromycin (Zithromax) 250 mg DAILY PO Last administered on 06/15/17 08:08 ; Start 06/09/17 at 09:00 Lactobacillus Rhamnosus (Culturelle) 1 cap BID PO Last administered on 08:07; Start 06/08/17 at 21:00 Diclofenac Sodium (Voltaren) 1 chantal BID TP Last administered on 06/15/17 08:08 ; Start 06/08/17 at 21:00 Gabapentin (Neurontin) 300 mg TID PO Last administered on 06/15/17 08:07; Start 06/08/17 at 21:00 Oxycodone/ Acetaminophen (Percocet 10/325) 1 tab PRN Q4HRS PRN PO PAIN Last administered on 06/15/17 08:08; Start 06/08/17 at 18:30 Cyclobenzaprine HCl (Flexeril) 10 mg Q6HRS PO ; Start 06/09/17 at 18:00; Stop 06/09/17 at 18:00; Status DC Alprazolam (Xanax) 0.5 mg PRN Q8HRS PRN PO ANXIETY / AGITATION Last administered on 06/10/17 17:55; Start 06/08/17 at 18:30 Baclofen (Lioresal) 10 mg TID PO Last administered on 06/14/17 11:07; Start 06/09/17 at 10:00; Stop 06/14/17 at 13:29; Status DC Enoxaparin Sodium (Lovenox 40mg Syringe) 40 mg Q24H SQ Last administered on 20:55; Start 06/10/17 at 21:00 Baclofen (Lioresal) 20 mg TID PO Last administered on 06/15/17 08:08; Start 06/14/17 at 14:00 Active Scripts Active Reported Vitamins ( Vits W-Ca,Fe,Fa(<1MG)) 1 Each Tablet 1 Tab PO DAILY Sudafed 12-Hour (Pseudoephedrine Hcl) 120 Mg Tablet.er 1 Tab PO BID Atorvastatin Calcium 20 Mg Tablet 1 Tab PO DAILY Ortho-Novum (Norethindrone-Ethinyl Estrad) 1 Each Tablet 1 Tab PO DAILY Flonase Allergy Relief (Fluticasone Propionate) 9.9 Ml [place].susp 2 Sprays NS DAILY Proair Hfa Inhaler (Albuterol Sulfate) 8.5 Gm Hfa.aer.ad 1 Puff INH PRN Q4HRS PRN Prilosec Otc (Omeprazole Magnesium) 20 Mg Tablet.dr 1 Tab PO DAILY Zantac (Ranitidine Hcl) 300 Mg Tablet 1 Tab PO QHS Zyrtec (Cetirizine Hcl) 10 Mg Tablet 10 Mg PO HS Jayshree-D 24 Hour Tablet (Fexofenadine/Pseudoephedrine) 1 Each Tab.er.24h 1 Tab PO DAILY Vitals/I & O Vital Sign - Last 24 Hours 06/14/17 06/14/17 06/14/17 06/14/17 11:23 14:34 19:25 20:00 Temp 97.6 98.1 98.4 97.6 98.1 98.4 Pulse 82 130 102 Resp 18 B/P (MAP) 118/72 (87) 121/88 (99) 120/72 (88) Pulse Ox 97 97 96 O2 Delivery Room Air Room Air Room Air Room Air 06/14/17 06/15/17 06/15/17 06/15/17 23:39 01:15 02:00 03:00 Temp 98.4 98.4 Pulse 94 Resp 18 14 B/P (MAP) 131/71 (91) Pulse Ox 96 96 96 O2 Delivery Room Air Room Air 06/15/17 06/15/17 06/15/17 06/15/17 07:00 08:00 08:08 09:08 Temp 98.2 98.2 Pulse 81 Resp 18 B/P (MAP) 113/52 (72) Pulse Ox 94 O2 Delivery Room Air Room Air Room Air Room Air Intake and Output 06/14/17 06/14/17 06/15/17 15:00 23:00 07:00 Intake Total 480 ml 1040 ml 300 ml Balance 480 ml 1040 ml 300 ml TAMERA SCHULTZ III DO Jun 15, 2017 10:43
[2017-06-15 11:00] VITALS: BP 118/70
[2017-06-15 14:31] VITALS: BP 135/72
[2017-06-15 19:39] VITALS: BP 139/89
[2017-06-15] MEDS: PRENATAL MULTIVITAMIN TABLET. PO SCH (20:54)
[2017-06-15] MEDS: ATORVASTATIN CALCIUM 20 MG TABLET PO SCH (20:54)
[2017-06-15] MEDS: CETIRIZINE HCL 10 MG TABLET. PO SCH (20:55)
[2017-06-15] MEDS: FAMOTIDINE 20 MG TABLET. PO SCH (20:55)
[2017-06-15] MEDS: ENOXAPARIN 40 MG/0.4 ML SYRINGE. SQ SCH (21:07)
[2017-06-15 23:15] VITALS: BP 117/70
[2017-06-16] MEDS: oxyCODONE/APAP 10/325 1 TAB TABLET PO PRN ×4 (02:23→23:42)
[2017-06-16 03:08] VITALS: BP 133/79
[2017-06-16 05:39] LABS: BASO # 0.1 x10^3/uL (0.0-0.2); BASO % 1 % (0-3); EOS % 7 % (0-3); HEMATOCRIT 39.3 % (36.0-47.0); HEMOGLOBIN 13.1 g/dL (12.0-15.5); LYMPH # 5.3 x10^3/uL (1.0-4.8); LYMPH % 50 % (24-48); MEAN CORPUSCULAR HEMOGLOBIN 31 pg (25-35); MEAN CORPUSCULAR HGB CONC 33 g/dL (31-37); MEAN CORPUSCULAR VOLUME 94 fL (79-100); MONO % 13 % (0-9); NEUT % 29 % (31-73); PLATELET COUNT 425 x10^3/uL (140-400); RED CELL DISTRIBUTION WIDTH 13.1 % (11.5-14.5); WHITE BLOOD COUNT 10.5 x10^3/uL (4.0-11.0)
[2017-06-16 06:19] LABS: ALBUMIN 3.3 g/dL (3.4-5.0); ALBUMIN/GLOBULIN RATIO 0.9 (1.0-1.7); CALCIUM 8.5 mg/dL (8.5-10.1); CREATININE 0.7 mg/dL (0.6-1.0); GFR 89.3; POTASSIUM 3.9 mmol/L (3.5-5.1); TOTAL BILIRUBIN 0.2 mg/dL (0.2-1.0); TOTAL PROTEIN 6.8 g/dL (6.4-8.2)
[2017-06-16 07:25] VITALS: BP 123/82
[2017-06-16] MEDS: FLUTICASONE 50MCG/NASAL SPRAY 16GM BOTTLE. NS SCH (09:03)
[2017-06-16] MEDS: DICLOFENAC SODIUM 1% TOPICAL GEL 100GM TUBE. TP SCH ×2 (09:03→21:08)
[2017-06-16] MEDS: PSEUDOEPHEDRINE ER 120 MG TABLET.ER. PO SCH ×2 (09:03→21:02)
[2017-06-16] MEDS: BACLOFEN 10 MG TABLET. PO SCH ×3 (09:04→21:02)
[2017-06-16] MEDS: AZITHROMYCIN 250 MG TABLET. PO SCH (09:04)
[2017-06-16] MEDS: GABAPENTIN 300 MG CAPSULE. PO SCH ×3 (09:04→21:02)
[2017-06-16] MEDS: LACTOBACILLUS RHAMNOSUS GG 1 CAPSULE. PO SCH ×2 (09:05→21:00)
[2017-06-16] MEDS: PANTOPRAZOLE 40 MG TABLET.DR. PO SCH (09:05)
--- NOTE | 2017-06-16 09:08 | PDOC ---
PROGRESS NOTES Subjective Subjective No new complaints. Objective Objective Vital Signs Date Time Temp Pulse Resp B/P (MAP) Pulse Ox O2 Delivery O2 Flow Rate FiO2 06/16/17 07:25 97.9 92 18 123/82 (96) 94 Room Air 97.9 Intake and Output 06/16/17 07:00 Intake Total 630 ml Balance 630 ml Intake Oral 630 ml # Voids 5 Physical Exam Physical Exam She is alert and comfortable and she remains independent with her mobility with roller walker and cam walker boot to right foot and she continues with tenderness to palpation over popliteal fossa area,lateral aspect of right leg proximally at fibular fracture site and decreased sensory perception over right peroneal nerve distribution right foot and significant weakness of right extensor hallucis longus muscle. Assessment Assessment Problems Medical Problems: (1) Intractable neuropathic pain of right lower extremity Status: Acute Plan Plan of Care To SNF when medically stable. Comment Review of Relevant I have reviewed the following items dalila (where applicable) has been applied. Labs Laboratory Tests Test 06/15/17 04:30 06/16/17 04:34 White Blood Count 10.4 x10^3/uL (4.0-11.0) 10.5 x10^3/uL (4.0-11.0) Red Blood Count 4.34 x10^6/uL (3.50-5.40) 4.20 x10^6/uL (3.50-5.40) Hemoglobin 13.5 g/dL (12.0-15.5) 13.1 g/dL (12.0-15.5) Hematocrit 40.4 % (36.0-47.0) 39.3 % (36.0-47.0) Mean Corpuscular Volume 93 fL (79-100) 94 fL (79-100) Mean Corpuscular Hemoglobin 31 pg (25-35) 31 pg (25-35) Mean Corpuscular Hemoglobin Concent 34 g/dL (31-37) 33 g/dL (31-37) Red Cell Distribution Width 13.1 % (11.5-14.5) 13.1 % (11.5-14.5) Platelet Count 488 x10^3/uL (140-400) 425 x10^3/uL (140-400) Neutrophils (%) (Auto) 36 % (31-73) 29 % (31-73) Lymphocytes (%) (Auto) 46 % (24-48) 50 % (24-48) Monocytes (%) (Auto) 12 % (0-9) 13 % (0-9) Eosinophils (%) (Auto) 5 % (0-3) 7 % (0-3) Basophils (%) (Auto) 1 % (0-3) 1 % (0-3) Neutrophils # (Auto) 3.7 x10^3uL (1.8-7.7) 3.1 x10^3uL (1.8-7.7) Lymphocytes # (Auto) 4.8 x10^3/uL (1.0-4.8) 5.3 x10^3/uL (1.0-4.8) Monocytes # (Auto) 1.3 x10^3/uL (0.0-1.1) 1.3 x10^3/uL (0.0-1.1) Eosinophils # (Auto) 0.5 x10^3/uL (0.0-0.7) 0.7 x10^3/uL (0.0-0.7) Basophils # (Auto) 0.1 x10^3/uL (0.0-0.2) 0.1 x10^3/uL (0.0-0.2) Sodium Level 141 mmol/L (136-145) 140 mmol/L (136-145) Potassium Level 4.0 mmol/L (3.5-5.1) 3.9 mmol/L (3.5-5.1) Chloride Level 104 mmol/L (98-107) 102 mmol/L (98-107) Carbon Dioxide Level 27 mmol/L (21-32) 26 mmol/L (21-32) Anion Gap 10 (6-14) 12 (6-14) Blood Urea Nitrogen 12 mg/dL (7-20) 15 mg/dL (7-20) Creatinine 0.8 mg/dL (0.6-1.0) 0.7 mg/dL (0.6-1.0) Estimated GFR (Cockcroft-Gault) 76.6 89.3 BUN/Creatinine Ratio 15 (6-20) 21 (6-20) Glucose Level 96 mg/dL (70-99) 96 mg/dL (70-99) Calcium Level 9.4 mg/dL (8.5-10.1) 8.5 mg/dL (8.5-10.1) Total Bilirubin 0.2 mg/dL (0.2-1.0) 0.2 mg/dL (0.2-1.0) Aspartate Amino Transf (AST/SGOT) 59 U/L (15-37) 51 U/L (15-37) Alanine Aminotransferase (ALT/SGPT) 84 U/L (14-59) 84 U/L (14-59) Alkaline Phosphatase 82 U/L (46-116) 75 U/L (46-116) Total Protein 7.3 g/dL (6.4-8.2) 6.8 g/dL (6.4-8.2) Albumin 3.4 g/dL (3.4-5.0) 3.3 g/dL (3.4-5.0) Albumin/Globulin Ratio 0.9 (1.0-1.7) 0.9 (1.0-1.7) Laboratory Tests Test 06/16/17 04:34 White Blood Count 10.5 x10^3/uL (4.0-11.0) Red Blood Count 4.20 x10^6/uL (3.50-5.40) Hemoglobin 13.1 g/dL (12.0-15.5) Hematocrit 39.3 % (36.0-47.0) Mean Corpuscular Volume 94 fL (79-100) Mean Corpuscular Hemoglobin 31 pg (25-35) Mean Corpuscular Hemoglobin Concent 33 g/dL (31-37) Red Cell Distribution Width 13.1 % (11.5-14.5) Platelet Count 425 x10^3/uL (140-400) Neutrophils (%) (Auto) 29 % (31-73) Lymphocytes (%) (Auto) 50 % (24-48) Monocytes (%) (Auto) 13 % (0-9) Eosinophils (%) (Auto) 7 % (0-3) Basophils (%) (Auto) 1 % (0-3) Neutrophils # (Auto) 3.1 x10^3uL (1.8-7.7) Lymphocytes # (Auto) 5.3 x10^3/uL (1.0-4.8) Monocytes # (Auto) 1.3 x10^3/uL (0.0-1.1) Eosinophils # (Auto) 0.7 x10^3/uL (0.0-0.7) Basophils # (Auto) 0.1 x10^3/uL (0.0-0.2) Sodium Level 140 mmol/L (136-145) Potassium Level 3.9 mmol/L (3.5-5.1) Chloride Level 102 mmol/L (98-107) Carbon Dioxide Level 26 mmol/L (21-32) Anion Gap 12 (6-14) Blood Urea Nitrogen 15 mg/dL (7-20) Creatinine 0.7 mg/dL (0.6-1.0) Estimated GFR (Cockcroft-Gault) 89.3 BUN/Creatinine Ratio 21 (6-20) Glucose Level 96 mg/dL (70-99) Calcium Level 8.5 mg/dL (8.5-10.1) Total Bilirubin 0.2 mg/dL (0.2-1.0) Aspartate Amino Transf (AST/SGOT) 51 U/L (15-37) Alanine Aminotransferase (ALT/SGPT) 84 U/L (14-59) Alkaline Phosphatase 75 U/L (46-116) Total Protein 6.8 g/dL (6.4-8.2) Albumin 3.3 g/dL (3.4-5.0) Albumin/Globulin Ratio 0.9 (1.0-1.7) Medications Current Medications Hydromorphone HCl (Dilaudid) 1 mg 1X ONCE IV Last administered on 06/04/17 18:36; Start 06/04/17 at 18:30; Stop 06/04/17 at 18:32; Status DC Hydromorphone HCl (Dilaudid) 1 mg 1X ONCE IV Last administered on 06/04/17 19:58; Start 06/04/17 at 20:00; Stop 06/04/17 at 20:01; Status DC Haloperidol Lactate (Haldol) 5 mg 1X ONCE IVP Last administered on 06/05/17 00:39; Start 06/05/17 at 00:15; Stop 06/05/17 at 00:16; Status DC Ondansetron HCl (Zofran) 4 mg PRN Q8HRS PRN IV NAUSEA/VOMITING; Start at 00:00; Stop 06/05/17 at 23:59; Status DC Fentanyl Citrate (Fentanyl 2ml Vial) 50 mcg PRN Q1HR PRN IV PAIN Last administered on 06/05/17 20:44; Start 06/05/17 at 00:00; Stop 06/05/17 at 23 :59; Status DC Acetaminophen (Tylenol) 650 mg PRN Q4HRS PRN PO FEVER Last administered on 10:02; Start 06/05/17 at 00:00; Stop 06/05/17 at 23:59; Status DC Diazepam (Valium) 5 mg 1X ONCE PO Last administered on 06/05/17 18:24; Start 06/05/17 at 14:00; Stop 06/05/17 at 14:01; Status DC Atorvastatin Calcium (Lipitor) 20 mg DAILY PO ; Start 06/06/17 at 09:00; Stop 06/07/17 at 08:54; Status DC Cetirizine HCl (ZyrTEC) 10 mg HS PO Last administered on 06/15/17 20:55; Start 06/05/17 at 21:00 Pseudoephedrine HCl (Sudafed 12-Hour) 120 mg BID PO Last administered on 20:55; Start 06/05/17 at 21:00 Non-Formulary Medication 1 puff PRN Q4HRS PRN INH SHORTNESS OF BREATH; Start 06/05/17 at 16:15; Status UNV Non-Formulary Medication 1 tab DAILY PO ; Start 06/06/17 at 09:00; Status UNV Fluticasone Propionate (Flonase) 2 spray DAILY NS Last administered on 08:08; Start 06/06/17 at 09:00 Non-Formulary Medication 1 tab DAILY PO ; Start 06/06/17 at 09:00; Status UNV Pantoprazole Sodium (Protonix) 40 mg DAILYAC PO Last administered on 08:07; Start 06/06/17 at 07:30 Multivit/ Folic Acid/Iron (Multivitamin ) 1 tab DAILY PO ; Start 06/06/17 at 09:00; Stop 06/07/17 at 08:54; Status DC Famotidine (Pepcid) 20 mg QHS PO Last administered on 06/15/17 20:55; Start 06/05/17 at 21:00 Albuterol Sulfate (Ventolin Neb Soln) 2.5 mg PRN Q6HRS PRN NEB SHORTNESS OF BREATH; Start 06/05/17 at 16:15 Diazepam (Valium) 5 mg 1X ONCE PO Last administered on 06/05/17 18:25; Start 06/05/17 at 18:30; Stop 06/05/17 at 18:31; Status DC Acetaminophen (Tylenol) 650 mg PRN Q6HRS PRN PO HEADACHE Last administered on 06/10/17 11:07; Start 06/06/17 at 03:00 Oxycodone/ Acetaminophen (Percocet 5/325) 1 tab PRN Q4HRS PRN PO PAIN Last administered on 06/08/17 16:55; Start 06/06/17 at 10:15; Stop 06/08/17 at 18 :25; Status DC Fentanyl Citrate (Fentanyl 2ml Vial) 50 mcg PRN Q2HR PRN IV PAIN Last administered on 06/08/17 04:03; Start 06/06/17 at 10:15 Ketorolac Tromethamine (Toradol) 15 mg PRN Q6HRS PRN IV PAIN Last administered on 06/10/17 17:56; Start 06/06/17 at 10:15; Stop 06/11/17 at 10:14; Status DC Atorvastatin Calcium (Lipitor) 20 mg QHS PO Last administered on 06/15/17 20: 54; Start 06/07/17 at 21:00 Multivit/ Folic Acid/Iron (Multivitamin ) 1 tab QHS PO Last administered on 06/15/17 20:54; Start 06/07/17 at 21:00 Diazepam (Valium) 5 mg 1X ONCE PO Last administered on 06/07/17 13:28; Start 06/07/17 at 11:30; Stop 06/07/17 at 11:31; Status DC Azithromycin (Zithromax) 500 mg 1X ONCE PO Last administered on 06/08/17 16: 55; Start 06/08/17 at 15:00; Stop 06/08/17 at 15:01; Status DC Azithromycin (Zithromax) 250 mg DAILY PO Last administered on 06/15/17 08:08 ; Start 06/09/17 at 09:00 Lactobacillus Rhamnosus (Culturelle) 1 cap BID PO Last administered on 21:06; Start 06/08/17 at 21:00 Diclofenac Sodium (Voltaren) 1 chantal BID TP Last administered on 06/15/17 21:07 ; Start 06/08/17 at 21:00 Gabapentin (Neurontin) 300 mg TID PO Last administered on 06/15/17 20:54; Start 06/08/17 at 21:00 Oxycodone/ Acetaminophen (Percocet 10/325) 1 tab PRN Q4HRS PRN PO PAIN Last administered on 06/16/17 02:23; Start 06/08/17 at 18:30 Cyclobenzaprine HCl (Flexeril) 10 mg Q6HRS PO ; Start 06/09/17 at 18:00; Stop 06/09/17 at 18:00; Status DC Alprazolam (Xanax) 0.5 mg PRN Q8HRS PRN PO ANXIETY / AGITATION Last administered on 06/10/17 17:55; Start 06/08/17 at 18:30 Baclofen (Lioresal) 10 mg TID PO Last administered on 06/14/17 11:07; Start 06/09/17 at 10:00; Stop 06/14/17 at 13:29; Status DC Enoxaparin Sodium (Lovenox 40mg Syringe) 40 mg Q24H SQ Last administered on 21:07; Start 06/10/17 at 21:00 Baclofen (Lioresal) 20 mg TID PO Last administered on 06/15/17 20:54; Start 06/14/17 at 14:00 Active Scripts Active Reported Vitamins ( Vits W-Ca,Fe,Fa(<1MG)) 1 Each Tablet 1 Tab PO DAILY Sudafed 12-Hour (Pseudoephedrine Hcl) 120 Mg Tablet.er 1 Tab PO BID Atorvastatin Calcium 20 Mg Tablet 1 Tab PO DAILY Ortho-Novum (Norethindrone-Ethinyl Estrad) 1 Each Tablet 1 Tab PO DAILY Flonase Allergy Relief (Fluticasone Propionate) 9.9 Ml [place].susp 2 Sprays NS DAILY Proair Hfa Inhaler (Albuterol Sulfate) 8.5 Gm Hfa.aer.ad 1 Puff INH PRN Q4HRS PRN Prilosec Otc (Omeprazole Magnesium) 20 Mg Tablet.dr 1 Tab PO DAILY Zantac (Ranitidine Hcl) 300 Mg Tablet 1 Tab PO QHS Zyrtec (Cetirizine Hcl) 10 Mg Tablet 10 Mg PO HS Jayshree-D 24 Hour Tablet (Fexofenadine/Pseudoephedrine) 1 Each Tab.er.24h 1 Tab PO DAILY Vitals/I & O Vital Sign - Last 24 Hours 06/15/17 06/15/17 06/15/17 06/15/17 11:00 13:17 14:31 17:22 Temp 98.1 98.4 98.1 98.4 Pulse 88 116 Resp 18 18 B/P (MAP) 118/70 (86) 135/72 (93) Pulse Ox 96 98 O2 Delivery Room Air Room Air Room Air Room Air 06/15/17 06/15/17 06/15/17 06/15/17 18:24 19:39 20:55 21:55 Temp 97.6 97.6 Pulse 98 Resp 16 24 20 B/P (MAP) 139/89 (106) Pulse Ox 94 O2 Delivery Room Air Room Air Room Air 06/15/17 06/16/17 06/16/17 06/16/17 23:15 02:23 03:08 07:25 Temp 98.2 98.2 97.9 98.2 98.2 97.9 Pulse 84 87 92 Resp 20 20 20 18 B/P (MAP) 117/70 (86) 133/79 (97) 123/82 (96) Pulse Ox 99 96 94 O2 Delivery Room Air Room Air Room Air Intake and Output 06/15/17 06/15/17 06/16/17 15:00 23:00 07:00 Intake Total 220 ml 410 ml Balance 220 ml 410 ml KIKI KENNY MD Jun 16, 2017 09:08
[2017-06-16 10:42] VITALS: BP 109/61
--- NOTE | 2017-06-16 10:57 | PDOC ---
PROGRESS NOTES Chief Complaint Chief Complaint acute right leg pain right nondisplaced proximal fibula fracture right labral tear R trochanteric and hamstring bursitis L3-4 posterior annular tear fibromyalgia obesity, BMI 33 gastroesophageal reflux disease allergies, asthma History of Present Illness History of Present Illness Pt seen and examined at bedside, No acute overnight events. Pt continues to complain of toe pain and numbness following injury to R LE. Discussed prognosis with patient. Pt likely discharge today to [facility] Vitals Vitals Vital Signs Date Time Temp Pulse Resp B/P (MAP) Pulse Ox O2 Delivery O2 Flow Rate FiO2 06/16/17 10:42 98.1 96 18 109/61 (77) 95 Room Air 98.1 Physical Exam General: Alert, Oriented X3, Cooperative, mild distress Heart: Regular rate, Normal S1, No murmurs Lungs: Clear Abdomen: Soft Extremities: No clubbing, No cyanosis, No edema, Normal pulses, Other (R LE knee brace and ankle brace in place) Skin: No rashes, No breakdown, No significant lesion Labs LABS Laboratory Tests Test 06/16/17 04:34 White Blood Count 10.5 x10^3/uL (4.0-11.0) Red Blood Count 4.20 x10^6/uL (3.50-5.40) Hemoglobin 13.1 g/dL (12.0-15.5) Hematocrit 39.3 % (36.0-47.0) Mean Corpuscular Volume 94 fL (79-100) Mean Corpuscular Hemoglobin 31 pg (25-35) Mean Corpuscular Hemoglobin Concent 33 g/dL (31-37) Red Cell Distribution Width 13.1 % (11.5-14.5) Platelet Count 425 x10^3/uL (140-400) Neutrophils (%) (Auto) 29 % (31-73) Lymphocytes (%) (Auto) 50 % (24-48) Monocytes (%) (Auto) 13 % (0-9) Eosinophils (%) (Auto) 7 % (0-3) Basophils (%) (Auto) 1 % (0-3) Neutrophils # (Auto) 3.1 x10^3uL (1.8-7.7) Lymphocytes # (Auto) 5.3 x10^3/uL (1.0-4.8) Monocytes # (Auto) 1.3 x10^3/uL (0.0-1.1) Eosinophils # (Auto) 0.7 x10^3/uL (0.0-0.7) Basophils # (Auto) 0.1 x10^3/uL (0.0-0.2) Sodium Level 140 mmol/L (136-145) Potassium Level 3.9 mmol/L (3.5-5.1) Chloride Level 102 mmol/L (98-107) Carbon Dioxide Level 26 mmol/L (21-32) Anion Gap 12 (6-14) Blood Urea Nitrogen 15 mg/dL (7-20) Creatinine 0.7 mg/dL (0.6-1.0) Estimated GFR (Cockcroft-Gault) 89.3 BUN/Creatinine Ratio 21 (6-20) Glucose Level 96 mg/dL (70-99) Calcium Level 8.5 mg/dL (8.5-10.1) Total Bilirubin 0.2 mg/dL (0.2-1.0) Aspartate Amino Transf (AST/SGOT) 51 U/L (15-37) Alanine Aminotransferase (ALT/SGPT) 84 U/L (14-59) Alkaline Phosphatase 75 U/L (46-116) Total Protein 6.8 g/dL (6.4-8.2) Albumin 3.3 g/dL (3.4-5.0) Albumin/Globulin Ratio 0.9 (1.0-1.7) Review of Systems Review of Systems Numbness M. Cramping Assessment and Plan Assessmemt and Plan Problems Medical Problems: (1) Intractable neuropathic pain of right lower extremity Status: Acute Assessment: acute right leg pain right nondisplaced proximal fibula fracture right labral tear R trochanteric and hamstring bursitis L3-4 posterior annular tear fibromyalgia obesity, BMI 33 gastroesophageal reflux disease allergies, asthma Plan: Continue Baclofen dose to 20mg po tid PT/OT Home meds Appreciate subspecialist input Normal diet Pain control Disposition to SNF pending case management Problems: Comment Review of Relevant I have reviewed the following items dalila (where applicable) has been applied. Labs Laboratory Tests Test 06/15/17 04:30 06/16/17 04:34 White Blood Count 10.4 x10^3/uL (4.0-11.0) 10.5 x10^3/uL (4.0-11.0) Red Blood Count 4.34 x10^6/uL (3.50-5.40) 4.20 x10^6/uL (3.50-5.40) Hemoglobin 13.5 g/dL (12.0-15.5) 13.1 g/dL (12.0-15.5) Hematocrit 40.4 % (36.0-47.0) 39.3 % (36.0-47.0) Mean Corpuscular Volume 93 fL (79-100) 94 fL (79-100) Mean Corpuscular Hemoglobin 31 pg (25-35) 31 pg (25-35) Mean Corpuscular Hemoglobin Concent 34 g/dL (31-37) 33 g/dL (31-37) Red Cell Distribution Width 13.1 % (11.5-14.5) 13.1 % (11.5-14.5) Platelet Count 488 x10^3/uL (140-400) 425 x10^3/uL (140-400) Neutrophils (%) (Auto) 36 % (31-73) 29 % (31-73) Lymphocytes (%) (Auto) 46 % (24-48) 50 % (24-48) Monocytes (%) (Auto) 12 % (0-9) 13 % (0-9) Eosinophils (%) (Auto) 5 % (0-3) 7 % (0-3) Basophils (%) (Auto) 1 % (0-3) 1 % (0-3) Neutrophils # (Auto) 3.7 x10^3uL (1.8-7.7) 3.1 x10^3uL (1.8-7.7) Lymphocytes # (Auto) 4.8 x10^3/uL (1.0-4.8) 5.3 x10^3/uL (1.0-4.8) Monocytes # (Auto) 1.3 x10^3/uL (0.0-1.1) 1.3 x10^3/uL (0.0-1.1) Eosinophils # (Auto) 0.5 x10^3/uL (0.0-0.7) 0.7 x10^3/uL (0.0-0.7) Basophils # (Auto) 0.1 x10^3/uL (0.0-0.2) 0.1 x10^3/uL (0.0-0.2) Sodium Level 141 mmol/L (136-145) 140 mmol/L (136-145) Potassium Level 4.0 mmol/L (3.5-5.1) 3.9 mmol/L (3.5-5.1) Chloride Level 104 mmol/L (98-107) 102 mmol/L (98-107) Carbon Dioxide Level 27 mmol/L (21-32) 26 mmol/L (21-32) Anion Gap 10 (6-14) 12 (6-14) Blood Urea Nitrogen 12 mg/dL (7-20) 15 mg/dL (7-20) Creatinine 0.8 mg/dL (0.6-1.0) 0.7 mg/dL (0.6-1.0) Estimated GFR (Cockcroft-Gault) 76.6 89.3 BUN/Creatinine Ratio 15 (6-20) 21 (6-20) Glucose Level 96 mg/dL (70-99) 96 mg/dL (70-99) Calcium Level 9.4 mg/dL (8.5-10.1) 8.5 mg/dL (8.5-10.1) Total Bilirubin 0.2 mg/dL (0.2-1.0) 0.2 mg/dL (0.2-1.0) Aspartate Amino Transf (AST/SGOT) 59 U/L (15-37) 51 U/L (15-37) Alanine Aminotransferase (ALT/SGPT) 84 U/L (14-59) 84 U/L (14-59) Alkaline Phosphatase 82 U/L (46-116) 75 U/L (46-116) Total Protein 7.3 g/dL (6.4-8.2) 6.8 g/dL (6.4-8.2) Albumin 3.4 g/dL (3.4-5.0) 3.3 g/dL (3.4-5.0) Albumin/Globulin Ratio 0.9 (1.0-1.7) 0.9 (1.0-1.7) Laboratory Tests Test 06/16/17 04:34 White Blood Count 10.5 x10^3/uL (4.0-11.0) Red Blood Count 4.20 x10^6/uL (3.50-5.40) Hemoglobin 13.1 g/dL (12.0-15.5) Hematocrit 39.3 % (36.0-47.0) Mean Corpuscular Volume 94 fL (79-100) Mean Corpuscular Hemoglobin 31 pg (25-35) Mean Corpuscular Hemoglobin Concent 33 g/dL (31-37) Red Cell Distribution Width 13.1 % (11.5-14.5) Platelet Count 425 x10^3/uL (140-400) Neutrophils (%) (Auto) 29 % (31-73) Lymphocytes (%) (Auto) 50 % (24-48) Monocytes (%) (Auto) 13 % (0-9) Eosinophils (%) (Auto) 7 % (0-3) Basophils (%) (Auto) 1 % (0-3) Neutrophils # (Auto) 3.1 x10^3uL (1.8-7.7) Lymphocytes # (Auto) 5.3 x10^3/uL (1.0-4.8) Monocytes # (Auto) 1.3 x10^3/uL (0.0-1.1) Eosinophils # (Auto) 0.7 x10^3/uL (0.0-0.7) Basophils # (Auto) 0.1 x10^3/uL (0.0-0.2) Sodium Level 140 mmol/L (136-145) Potassium Level 3.9 mmol/L (3.5-5.1) Chloride Level 102 mmol/L (98-107) Carbon Dioxide Level 26 mmol/L (21-32) Anion Gap 12 (6-14) Blood Urea Nitrogen 15 mg/dL (7-20) Creatinine 0.7 mg/dL (0.6-1.0) Estimated GFR (Cockcroft-Gault) 89.3 BUN/Creatinine Ratio 21 (6-20) Glucose Level 96 mg/dL (70-99) Calcium Level 8.5 mg/dL (8.5-10.1) Total Bilirubin 0.2 mg/dL (0.2-1.0) Aspartate Amino Transf (AST/SGOT) 51 U/L (15-37) Alanine Aminotransferase (ALT/SGPT) 84 U/L (14-59) Alkaline Phosphatase 75 U/L (46-116) Total Protein 6.8 g/dL (6.4-8.2) Albumin 3.3 g/dL (3.4-5.0) Albumin/Globulin Ratio 0.9 (1.0-1.7) Medications Current Medications Hydromorphone HCl (Dilaudid) 1 mg 1X ONCE IV Last administered on 06/04/17 18:36; Start 06/04/17 at 18:30; Stop 06/04/17 at 18:32; Status DC Hydromorphone HCl (Dilaudid) 1 mg 1X ONCE IV Last administered on 06/04/17 19:58; Start 06/04/17 at 20:00; Stop 06/04/17 at 20:01; Status DC Haloperidol Lactate (Haldol) 5 mg 1X ONCE IVP Last administered on 06/05/17 00:39; Start 06/05/17 at 00:15; Stop 06/05/17 at 00:16; Status DC Ondansetron HCl (Zofran) 4 mg PRN Q8HRS PRN IV NAUSEA/VOMITING; Start at 00:00; Stop 06/05/17 at 23:59; Status DC Fentanyl Citrate (Fentanyl 2ml Vial) 50 mcg PRN Q1HR PRN IV PAIN Last administered on 06/05/17 20:44; Start 06/05/17 at 00:00; Stop 06/05/17 at 23 :59; Status DC Acetaminophen (Tylenol) 650 mg PRN Q4HRS PRN PO FEVER Last administered on 10:02; Start 06/05/17 at 00:00; Stop 06/05/17 at 23:59; Status DC Diazepam (Valium) 5 mg 1X ONCE PO Last administered on 06/05/17 18:24; Start 06/05/17 at 14:00; Stop 06/05/17 at 14:01; Status DC Atorvastatin Calcium (Lipitor) 20 mg DAILY PO ; Start 06/06/17 at 09:00; Stop 06/07/17 at 08:54; Status DC Cetirizine HCl (ZyrTEC) 10 mg HS PO Last administered on 06/15/17 20:55; Start 06/05/17 at 21:00 Pseudoephedrine HCl (Sudafed 12-Hour) 120 mg BID PO Last administered on 09:03; Start 06/05/17 at 21:00 Non-Formulary Medication 1 puff PRN Q4HRS PRN INH SHORTNESS OF BREATH; Start 06/05/17 at 16:15; Status UNV Non-Formulary Medication 1 tab DAILY PO ; Start 06/06/17 at 09:00; Status UNV Fluticasone Propionate (Flonase) 2 spray DAILY NS Last administered on 09:03; Start 06/06/17 at 09:00 Non-Formulary Medication 1 tab DAILY PO ; Start 06/06/17 at 09:00; Status UNV Pantoprazole Sodium (Protonix) 40 mg DAILYAC PO Last administered on 09:05; Start 06/06/17 at 07:30 Multivit/ Folic Acid/Iron (Multivitamin ) 1 tab DAILY PO ; Start 06/06/17 at 09:00; Stop 06/07/17 at 08:54; Status DC Famotidine (Pepcid) 20 mg QHS PO Last administered on 06/15/17 20:55; Start 06/05/17 at 21:00 Albuterol Sulfate (Ventolin Neb Soln) 2.5 mg PRN Q6HRS PRN NEB SHORTNESS OF BREATH; Start 06/05/17 at 16:15 Diazepam (Valium) 5 mg 1X ONCE PO Last administered on 06/05/17 18:25; Start 06/05/17 at 18:30; Stop 06/05/17 at 18:31; Status DC Acetaminophen (Tylenol) 650 mg PRN Q6HRS PRN PO HEADACHE Last administered on 06/10/17 11:07; Start 06/06/17 at 03:00 Oxycodone/ Acetaminophen (Percocet 5/325) 1 tab PRN Q4HRS PRN PO PAIN Last administered on 06/08/17 16:55; Start 06/06/17 at 10:15; Stop 06/08/17 at 18 :25; Status DC Fentanyl Citrate (Fentanyl 2ml Vial) 50 mcg PRN Q2HR PRN IV PAIN Last administered on 06/08/17 04:03; Start 06/06/17 at 10:15 Ketorolac Tromethamine (Toradol) 15 mg PRN Q6HRS PRN IV PAIN Last administered on 06/10/17 17:56; Start 06/06/17 at 10:15; Stop 06/11/17 at 10:14; Status DC Atorvastatin Calcium (Lipitor) 20 mg QHS PO Last administered on 06/15/17 20: 54; Start 06/07/17 at 21:00 Multivit/ Folic Acid/Iron (Multivitamin ) 1 tab QHS PO Last administered on 06/15/17 20:54; Start 06/07/17 at 21:00 Diazepam (Valium) 5 mg 1X ONCE PO Last administered on 06/07/17 13:28; Start 06/07/17 at 11:30; Stop 06/07/17 at 11:31; Status DC Azithromycin (Zithromax) 500 mg 1X ONCE PO Last administered on 06/08/17 16: 55; Start 06/08/17 at 15:00; Stop 06/08/17 at 15:01; Status DC Azithromycin (Zithromax) 250 mg DAILY PO Last administered on 06/16/17 09:04 ; Start 06/09/17 at 09:00 Lactobacillus Rhamnosus (Culturelle) 1 cap BID PO Last administered on 09:05; Start 06/08/17 at 21:00 Diclofenac Sodium (Voltaren) 1 chantal BID TP Last administered on 06/16/17 09:03 ; Start 06/08/17 at 21:00 Gabapentin (Neurontin) 300 mg TID PO Last administered on 06/16/17 09:04; Start 06/08/17 at 21:00 Oxycodone/ Acetaminophen (Percocet 10/325) 1 tab PRN Q4HRS PRN PO PAIN Last administered on 06/16/17 09:04; Start 06/08/17 at 18:30 Cyclobenzaprine HCl (Flexeril) 10 mg Q6HRS PO ; Start 06/09/17 at 18:00; Stop 06/09/17 at 18:00; Status DC Alprazolam (Xanax) 0.5 mg PRN Q8HRS PRN PO ANXIETY / AGITATION Last administered on 06/10/17 17:55; Start 06/08/17 at 18:30 Baclofen (Lioresal) 10 mg TID PO Last administered on 06/14/17 11:07; Start 06/09/17 at 10:00; Stop 06/14/17 at 13:29; Status DC Enoxaparin Sodium (Lovenox 40mg Syringe) 40 mg Q24H SQ Last administered on 21:07; Start 06/10/17 at 21:00 Baclofen (Lioresal) 20 mg TID PO Last administered on 06/16/17 09:04; Start 06/14/17 at 14:00 Active Scripts Active Reported Vitamins ( Vits W-Ca,Fe,Fa(<1MG)) 1 Each Tablet 1 Tab PO DAILY Sudafed 12-Hour (Pseudoephedrine Hcl) 120 Mg Tablet.er 1 Tab PO BID Atorvastatin Calcium 20 Mg Tablet 1 Tab PO DAILY Ortho-Novum (Norethindrone-Ethinyl Estrad) 1 Each Tablet 1 Tab PO DAILY Flonase Allergy Relief (Fluticasone Propionate) 9.9 Ml [place].susp 2 Sprays NS DAILY Proair Hfa Inhaler (Albuterol Sulfate) 8.5 Gm Hfa.aer.ad 1 Puff INH PRN Q4HRS PRN Prilosec Otc (Omeprazole Magnesium) 20 Mg Tablet.dr 1 Tab PO DAILY Zantac (Ranitidine Hcl) 300 Mg Tablet 1 Tab PO QHS Zyrtec (Cetirizine Hcl) 10 Mg Tablet 10 Mg PO HS Jayshree-D 24 Hour Tablet (Fexofenadine/Pseudoephedrine) 1 Each Tab.er.24h 1 Tab PO DAILY Vitals/I & O Vital Sign - Last 24 Hours 06/15/17 06/15/17 06/15/17 06/15/17 11:00 13:17 14:31 17:22 Temp 98.1 98.4 98.1 98.4 Pulse 88 116 Resp 18 18 B/P (MAP) 118/70 (86) 135/72 (93) Pulse Ox 96 98 O2 Delivery Room Air Room Air Room Air Room Air 06/15/17 06/15/17 06/15/17 06/15/17 19:39 20:55 21:55 23:15 Temp 97.6 98.2 97.6 98.2 Pulse 98 84 Resp 16 24 20 20 B/P (MAP) 139/89 (106) 117/70 (86) Pulse Ox 94 99 O2 Delivery Room Air Room Air Room Air 06/16/17 06/16/17 06/16/17 06/16/17 02:23 03:08 07:25 08:00 Temp 98.2 97.9 98.2 97.9 Pulse 87 92 Resp 20 20 18 B/P (MAP) 133/79 (97) 123/82 (96) Pulse Ox 96 94 O2 Delivery Room Air Room Air Room Air 06/16/17 06/16/17 06/16/17 09:04 10:29 10:42 Temp 98.1 98.1 Pulse 96 Resp 18 B/P (MAP) 109/61 (77) Pulse Ox 94 94 95 O2 Delivery Room Air Room Air Room Air Intake and Output 06/15/17 06/15/17 06/16/17 15:00 23:00 07:00 Intake Total 220 ml 410 ml Balance 220 ml 410 ml TAMERA SCHULTZ III DO Jun 16, 2017 10:57
[2017-06-16 14:32] VITALS: BP 115/70
[2017-06-16 19:50] VITALS: BP 115/71
[2017-06-16] MEDS: ENOXAPARIN 40 MG/0.4 ML SYRINGE. SQ SCH (21:02)
[2017-06-16] MEDS: CETIRIZINE HCL 10 MG TABLET. PO SCH (21:02)
[2017-06-16] MEDS: FAMOTIDINE 20 MG TABLET. PO SCH (21:02)
[2017-06-16] MEDS: PRENATAL MULTIVITAMIN TABLET. PO SCH (21:02)
[2017-06-16] MEDS: ATORVASTATIN CALCIUM 20 MG TABLET PO SCH (21:02)
[2017-06-16 23:50] VITALS: BP 129/65
[2017-06-17 04:47] LABS: BASO # 0.1 x10^3/uL (0.0-0.2); BASO % 1 % (0-3); EOS % 6 % (0-3); HEMATOCRIT 41.3 % (36.0-47.0); HEMOGLOBIN 13.7 g/dL (12.0-15.5); LYMPH # 4.5 x10^3/uL (1.0-4.8); LYMPH % 47 % (24-48); MEAN CORPUSCULAR HEMOGLOBIN 31 pg (25-35); MEAN CORPUSCULAR HGB CONC 33 g/dL (31-37); MEAN CORPUSCULAR VOLUME 93 fL (79-100); MONO % 12 % (0-9); NEUT % 35 % (31-73); PLATELET COUNT 448 x10^3/uL (140-400); RED BLOOD COUNT 4.45 x10^6/uL (3.50-5.40); RED CELL DISTRIBUTION WIDTH 13.1 % (11.5-14.5); WHITE BLOOD COUNT 9.6 x10^3/uL (4.0-11.0)
[2017-06-17 05:16] LABS: ALBUMIN 3.4 g/dL (3.4-5.0); ALBUMIN/GLOBULIN RATIO 0.8 (1.0-1.7); CALCIUM 8.9 mg/dL (8.5-10.1); CREATININE 0.7 mg/dL (0.6-1.0); GFR 89.3; POTASSIUM 4.1 mmol/L (3.5-5.1); TOTAL BILIRUBIN 0.2 mg/dL (0.2-1.0); TOTAL PROTEIN 7.6 g/dL (6.4-8.2)
[2017-06-17 07:00] VITALS: BP 133/80
[2017-06-17] MEDS: FLUTICASONE 50MCG/NASAL SPRAY 16GM BOTTLE. NS SCH (09:00)
--- NOTE | 2017-06-17 09:36 | PDOC ---
PROGRESS NOTES Subjective Subjective She admits continued right leg and foot pain and feels cam walker boot is heavy. Objective Objective Vital Signs Date Time Temp Pulse Resp B/P (MAP) Pulse Ox O2 Delivery O2 Flow Rate FiO2 06/17/17 07:00 98.2 97 18 133/80 (97) 95 Room Air 98.2 Intake and Output 06/17/17 07:00 Intake Total 1520 ml Balance 1520 ml Intake Oral 1520 ml # Voids 5 Physical Exam Physical Exam She is alert and in no acute distress and still protecting her right foot and leg but can move actively and no active right big toe dorsiflexion and she continues with decreased sensory perception over right peroneal nerve distribution right foot and diffuse tenderness to palpation over right foot and distal part of right leg. No swelling of right ankle noted. Assessment Assessment Problems Medical Problems: (1) Intractable neuropathic pain of right lower extremity Status: Acute Plan Plan of Care To SNF when medically stable. Comment Review of Relevant I have reviewed the following items dalila (where applicable) has been applied. Labs Laboratory Tests Test 06/16/17 04:34 06/17/17 03:30 White Blood Count 10.5 x10^3/uL (4.0-11.0) 9.6 x10^3/uL (4.0-11.0) Red Blood Count 4.20 x10^6/uL (3.50-5.40) 4.45 x10^6/uL (3.50-5.40) Hemoglobin 13.1 g/dL (12.0-15.5) 13.7 g/dL (12.0-15.5) Hematocrit 39.3 % (36.0-47.0) 41.3 % (36.0-47.0) Mean Corpuscular Volume 94 fL (79-100) 93 fL (79-100) Mean Corpuscular Hemoglobin 31 pg (25-35) 31 pg (25-35) Mean Corpuscular Hemoglobin Concent 33 g/dL (31-37) 33 g/dL (31-37) Red Cell Distribution Width 13.1 % (11.5-14.5) 13.1 % (11.5-14.5) Platelet Count 425 x10^3/uL (140-400) 448 x10^3/uL (140-400) Neutrophils (%) (Auto) 29 % (31-73) 35 % (31-73) Lymphocytes (%) (Auto) 50 % (24-48) 47 % (24-48) Monocytes (%) (Auto) 13 % (0-9) 12 % (0-9) Eosinophils (%) (Auto) 7 % (0-3) 6 % (0-3) Basophils (%) (Auto) 1 % (0-3) 1 % (0-3) Neutrophils # (Auto) 3.1 x10^3uL (1.8-7.7) 3.3 x10^3uL (1.8-7.7) Lymphocytes # (Auto) 5.3 x10^3/uL (1.0-4.8) 4.5 x10^3/uL (1.0-4.8) Monocytes # (Auto) 1.3 x10^3/uL (0.0-1.1) 1.1 x10^3/uL (0.0-1.1) Eosinophils # (Auto) 0.7 x10^3/uL (0.0-0.7) 0.6 x10^3/uL (0.0-0.7) Basophils # (Auto) 0.1 x10^3/uL (0.0-0.2) 0.1 x10^3/uL (0.0-0.2) Sodium Level 140 mmol/L (136-145) 141 mmol/L (136-145) Potassium Level 3.9 mmol/L (3.5-5.1) 4.1 mmol/L (3.5-5.1) Chloride Level 102 mmol/L (98-107) 103 mmol/L (98-107) Carbon Dioxide Level 26 mmol/L (21-32) 28 mmol/L (21-32) Anion Gap 12 (6-14) 10 (6-14) Blood Urea Nitrogen 15 mg/dL (7-20) 13 mg/dL (7-20) Creatinine 0.7 mg/dL (0.6-1.0) 0.7 mg/dL (0.6-1.0) Estimated GFR (Cockcroft-Gault) 89.3 89.3 BUN/Creatinine Ratio 21 (6-20) 19 (6-20) Glucose Level 96 mg/dL (70-99) 83 mg/dL (70-99) Calcium Level 8.5 mg/dL (8.5-10.1) 8.9 mg/dL (8.5-10.1) Total Bilirubin 0.2 mg/dL (0.2-1.0) 0.2 mg/dL (0.2-1.0) Aspartate Amino Transf (AST/SGOT) 51 U/L (15-37) 55 U/L (15-37) Alanine Aminotransferase (ALT/SGPT) 84 U/L (14-59) 88 U/L (14-59) Alkaline Phosphatase 75 U/L (46-116) 77 U/L (46-116) Total Protein 6.8 g/dL (6.4-8.2) 7.6 g/dL (6.4-8.2) Albumin 3.3 g/dL (3.4-5.0) 3.4 g/dL (3.4-5.0) Albumin/Globulin Ratio 0.9 (1.0-1.7) 0.8 (1.0-1.7) Laboratory Tests Test 06/17/17 03:30 White Blood Count 9.6 x10^3/uL (4.0-11.0) Red Blood Count 4.45 x10^6/uL (3.50-5.40) Hemoglobin 13.7 g/dL (12.0-15.5) Hematocrit 41.3 % (36.0-47.0) Mean Corpuscular Volume 93 fL (79-100) Mean Corpuscular Hemoglobin 31 pg (25-35) Mean Corpuscular Hemoglobin Concent 33 g/dL (31-37) Red Cell Distribution Width 13.1 % (11.5-14.5) Platelet Count 448 x10^3/uL (140-400) Neutrophils (%) (Auto) 35 % (31-73) Lymphocytes (%) (Auto) 47 % (24-48) Monocytes (%) (Auto) 12 % (0-9) Eosinophils (%) (Auto) 6 % (0-3) Basophils (%) (Auto) 1 % (0-3) Neutrophils # (Auto) 3.3 x10^3uL (1.8-7.7) Lymphocytes # (Auto) 4.5 x10^3/uL (1.0-4.8) Monocytes # (Auto) 1.1 x10^3/uL (0.0-1.1) Eosinophils # (Auto) 0.6 x10^3/uL (0.0-0.7) Basophils # (Auto) 0.1 x10^3/uL (0.0-0.2) Sodium Level 141 mmol/L (136-145) Potassium Level 4.1 mmol/L (3.5-5.1) Chloride Level 103 mmol/L (98-107) Carbon Dioxide Level 28 mmol/L (21-32) Anion Gap 10 (6-14) Blood Urea Nitrogen 13 mg/dL (7-20) Creatinine 0.7 mg/dL (0.6-1.0) Estimated GFR (Cockcroft-Gault) 89.3 BUN/Creatinine Ratio 19 (6-20) Glucose Level 83 mg/dL (70-99) Calcium Level 8.9 mg/dL (8.5-10.1) Total Bilirubin 0.2 mg/dL (0.2-1.0) Aspartate Amino Transf (AST/SGOT) 55 U/L (15-37) Alanine Aminotransferase (ALT/SGPT) 88 U/L (14-59) Alkaline Phosphatase 77 U/L (46-116) Total Protein 7.6 g/dL (6.4-8.2) Albumin 3.4 g/dL (3.4-5.0) Albumin/Globulin Ratio 0.8 (1.0-1.7) Medications Current Medications Hydromorphone HCl (Dilaudid) 1 mg 1X ONCE IV Last administered on 06/04/17 18:36; Start 06/04/17 at 18:30; Stop 06/04/17 at 18:32; Status DC Hydromorphone HCl (Dilaudid) 1 mg 1X ONCE IV Last administered on 06/04/17 19:58; Start 06/04/17 at 20:00; Stop 06/04/17 at 20:01; Status DC Haloperidol Lactate (Haldol) 5 mg 1X ONCE IVP Last administered on 06/05/17 00:39; Start 06/05/17 at 00:15; Stop 06/05/17 at 00:16; Status DC Ondansetron HCl (Zofran) 4 mg PRN Q8HRS PRN IV NAUSEA/VOMITING; Start at 00:00; Stop 06/05/17 at 23:59; Status DC Fentanyl Citrate (Fentanyl 2ml Vial) 50 mcg PRN Q1HR PRN IV PAIN Last administered on 06/05/17 20:44; Start 06/05/17 at 00:00; Stop 06/05/17 at 23 :59; Status DC Acetaminophen (Tylenol) 650 mg PRN Q4HRS PRN PO FEVER Last administered on 10:02; Start 06/05/17 at 00:00; Stop 06/05/17 at 23:59; Status DC Diazepam (Valium) 5 mg 1X ONCE PO Last administered on 06/05/17 18:24; Start 06/05/17 at 14:00; Stop 06/05/17 at 14:01; Status DC Atorvastatin Calcium (Lipitor) 20 mg DAILY PO ; Start 06/06/17 at 09:00; Stop 06/07/17 at 08:54; Status DC Cetirizine HCl (ZyrTEC) 10 mg HS PO Last administered on 06/16/17 21:02; Start 06/05/17 at 21:00 Pseudoephedrine HCl (Sudafed 12-Hour) 120 mg BID PO Last administered on 21:02; Start 06/05/17 at 21:00 Non-Formulary Medication 1 puff PRN Q4HRS PRN INH SHORTNESS OF BREATH; Start 06/05/17 at 16:15; Status UNV Non-Formulary Medication 1 tab DAILY PO ; Start 06/06/17 at 09:00; Status UNV Fluticasone Propionate (Flonase) 2 spray DAILY NS Last administered on 09:03; Start 06/06/17 at 09:00 Non-Formulary Medication 1 tab DAILY PO ; Start 06/06/17 at 09:00; Status UNV Pantoprazole Sodium (Protonix) 40 mg DAILYAC PO Last administered on 09:05; Start 06/06/17 at 07:30 Multivit/ Folic Acid/Iron (Multivitamin ) 1 tab DAILY PO ; Start 06/06/17 at 09:00; Stop 06/07/17 at 08:54; Status DC Famotidine (Pepcid) 20 mg QHS PO Last administered on 06/16/17 21:02; Start 06/05/17 at 21:00 Albuterol Sulfate (Ventolin Neb Soln) 2.5 mg PRN Q6HRS PRN NEB SHORTNESS OF BREATH; Start 06/05/17 at 16:15 Diazepam (Valium) 5 mg 1X ONCE PO Last administered on 06/05/17 18:25; Start 06/05/17 at 18:30; Stop 06/05/17 at 18:31; Status DC Acetaminophen (Tylenol) 650 mg PRN Q6HRS PRN PO HEADACHE Last administered on 06/10/17 11:07; Start 06/06/17 at 03:00 Oxycodone/ Acetaminophen (Percocet 5/325) 1 tab PRN Q4HRS PRN PO PAIN Last administered on 06/08/17 16:55; Start 06/06/17 at 10:15; Stop 06/08/17 at 18 :25; Status DC Fentanyl Citrate (Fentanyl 2ml Vial) 50 mcg PRN Q2HR PRN IV PAIN Last administered on 06/08/17 04:03; Start 06/06/17 at 10:15 Ketorolac Tromethamine (Toradol) 15 mg PRN Q6HRS PRN IV PAIN Last administered on 06/10/17 17:56; Start 06/06/17 at 10:15; Stop 06/11/17 at 10:14; Status DC Atorvastatin Calcium (Lipitor) 20 mg QHS PO Last administered on 06/16/17 21: 02; Start 06/07/17 at 21:00 Multivit/ Folic Acid/Iron (Multivitamin ) 1 tab QHS PO Last administered on 06/16/17 21:02; Start 06/07/17 at 21:00 Diazepam (Valium) 5 mg 1X ONCE PO Last administered on 06/07/17 13:28; Start 06/07/17 at 11:30; Stop 06/07/17 at 11:31; Status DC Azithromycin (Zithromax) 500 mg 1X ONCE PO Last administered on 06/08/17 16: 55; Start 06/08/17 at 15:00; Stop 06/08/17 at 15:01; Status DC Azithromycin (Zithromax) 250 mg DAILY PO Last administered on 06/16/17 09:04 ; Start 06/09/17 at 09:00; Stop 06/16/17 at 18:38; Status DC Lactobacillus Rhamnosus (Culturelle) 1 cap BID PO Last administered on 09:05; Start 06/08/17 at 21:00 Diclofenac Sodium (Voltaren) 1 chantal BID TP Last administered on 06/16/17 21:08 ; Start 06/08/17 at 21:00 Gabapentin (Neurontin) 300 mg TID PO Last administered on 06/16/17 21:02; Start 06/08/17 at 21:00 Oxycodone/ Acetaminophen (Percocet 10/325) 1 tab PRN Q4HRS PRN PO PAIN Last administered on 06/16/17 23:42; Start 06/08/17 at 18:30 Cyclobenzaprine HCl (Flexeril) 10 mg Q6HRS PO ; Start 06/09/17 at 18:00; Stop 06/09/17 at 18:00; Status DC Alprazolam (Xanax) 0.5 mg PRN Q8HRS PRN PO ANXIETY / AGITATION Last administered on 06/10/17 17:55; Start 06/08/17 at 18:30 Baclofen (Lioresal) 10 mg TID PO Last administered on 06/14/17 11:07; Start 06/09/17 at 10:00; Stop 06/14/17 at 13:29; Status DC Enoxaparin Sodium (Lovenox 40mg Syringe) 40 mg Q24H SQ Last administered on 21:02; Start 06/10/17 at 21:00 Baclofen (Lioresal) 20 mg TID PO Last administered on 06/16/17 21:02; Start 06/14/17 at 14:00 Active Scripts Active Reported Vitamins ( Vits W-Ca,Fe,Fa(<1MG)) 1 Each Tablet 1 Tab PO DAILY Sudafed 12-Hour (Pseudoephedrine Hcl) 120 Mg Tablet.er 1 Tab PO BID Atorvastatin Calcium 20 Mg Tablet 1 Tab PO DAILY Ortho-Novum (Norethindrone-Ethinyl Estrad) 1 Each Tablet 1 Tab PO DAILY Flonase Allergy Relief (Fluticasone Propionate) 9.9 Ml [place].susp 2 Sprays NS DAILY Proair Hfa Inhaler (Albuterol Sulfate) 8.5 Gm Hfa.aer.ad 1 Puff INH PRN Q4HRS PRN Prilosec Otc (Omeprazole Magnesium) 20 Mg Tablet.dr 1 Tab PO DAILY Zantac (Ranitidine Hcl) 300 Mg Tablet 1 Tab PO QHS Zyrtec (Cetirizine Hcl) 10 Mg Tablet 10 Mg PO HS Jayshree-D 24 Hour Tablet (Fexofenadine/Pseudoephedrine) 1 Each Tab.er.24h 1 Tab PO DAILY Vitals/I & O Vital Sign - Last 24 Hours 06/16/17 06/16/17 06/16/17 06/16/17 10:42 14:32 17:25 18:38 Temp 98.1 98.5 98.1 98.5 Pulse 96 105 Resp 18 18 B/P (MAP) 109/61 (77) 115/70 (85) Pulse Ox 95 95 95 95 O2 Delivery Room Air Room Air Room Air Room Air 06/16/17 06/16/17 06/16/17 06/16/17 19:50 20:00 23:42 23:50 Temp 98.1 98.5 98.1 98.5 Pulse 81 89 Resp 18 18 B/P (MAP) 115/71 (86) 129/65 (86) Pulse Ox 97 97 95 O2 Delivery Room Air Room Air Room Air Room Air 06/17/17 06/17/17 03:00 07:00 Temp 98.2 98.2 Pulse 97 Resp 16 18 B/P (MAP) 133/80 (97) Pulse Ox 95 O2 Delivery Room Air Room Air Intake and Output 06/16/17 06/16/17 06/17/17 15:00 23:00 07:00 Intake Total 480 ml 1040 ml 0 ml Balance 480 ml 1040 ml 0 ml KIKI KENNY MD Jun 17, 2017 09:36
[2017-06-17] MEDS: oxyCODONE/APAP 10/325 1 TAB TABLET PO PRN ×2 (09:59→18:51)
[2017-06-17] MEDS: PANTOPRAZOLE 40 MG TABLET.DR. PO SCH (09:59)
[2017-06-17] MEDS: LACTOBACILLUS RHAMNOSUS GG 1 CAPSULE. PO SCH ×2 (09:59→21:38)
[2017-06-17] MEDS: GABAPENTIN 300 MG CAPSULE. PO SCH ×3 (09:59→21:38)
[2017-06-17] MEDS: PSEUDOEPHEDRINE ER 120 MG TABLET.ER. PO SCH ×2 (09:59→21:37)
[2017-06-17] MEDS: BACLOFEN 10 MG TABLET. PO SCH ×3 (09:59→21:38)
[2017-06-17] MEDS: DICLOFENAC SODIUM 1% TOPICAL GEL 100GM TUBE. TP SCH ×2 (10:40→21:37)
[2017-06-17 11:00] VITALS: BP 113/62
--- NOTE | 2017-06-17 11:18 | PDOC ---
PROGRESS NOTES Chief Complaint Chief Complaint acute right leg pain right nondisplaced proximal fibula fracture right labral tear R trochanteric and hamstring bursitis L3-4 posterior annular tear fibromyalgia obesity, BMI 33 gastroesophageal reflux disease allergies, asthma History of Present Illness History of Present Illness Pt seen and examined at bedside, No acute overnight events. Pt continues to complain of toe pain and numbness following injury to R LE. Pt to be discharged to SNF today Vitals Vitals Vital Signs Date Time Temp Pulse Resp B/P (MAP) Pulse Ox O2 Delivery O2 Flow Rate FiO2 06/17/17 11:00 97.8 109 20 113/62 (79) 95 Room Air 97.8 Physical Exam General: Alert, Oriented X3, Cooperative, mild distress Heart: Regular rate, Normal S1, No murmurs Lungs: Clear Abdomen: Soft Extremities: No clubbing, No cyanosis, No edema, Normal pulses, Other (R LE knee brace and ankle brace in place) Skin: No rashes, No breakdown, No significant lesion Labs LABS Laboratory Tests Test 06/17/17 03:30 White Blood Count 9.6 x10^3/uL (4.0-11.0) Red Blood Count 4.45 x10^6/uL (3.50-5.40) Hemoglobin 13.7 g/dL (12.0-15.5) Hematocrit 41.3 % (36.0-47.0) Mean Corpuscular Volume 93 fL (79-100) Mean Corpuscular Hemoglobin 31 pg (25-35) Mean Corpuscular Hemoglobin Concent 33 g/dL (31-37) Red Cell Distribution Width 13.1 % (11.5-14.5) Platelet Count 448 x10^3/uL (140-400) Neutrophils (%) (Auto) 35 % (31-73) Lymphocytes (%) (Auto) 47 % (24-48) Monocytes (%) (Auto) 12 % (0-9) Eosinophils (%) (Auto) 6 % (0-3) Basophils (%) (Auto) 1 % (0-3) Neutrophils # (Auto) 3.3 x10^3uL (1.8-7.7) Lymphocytes # (Auto) 4.5 x10^3/uL (1.0-4.8) Monocytes # (Auto) 1.1 x10^3/uL (0.0-1.1) Eosinophils # (Auto) 0.6 x10^3/uL (0.0-0.7) Basophils # (Auto) 0.1 x10^3/uL (0.0-0.2) Sodium Level 141 mmol/L (136-145) Potassium Level 4.1 mmol/L (3.5-5.1) Chloride Level 103 mmol/L (98-107) Carbon Dioxide Level 28 mmol/L (21-32) Anion Gap 10 (6-14) Blood Urea Nitrogen 13 mg/dL (7-20) Creatinine 0.7 mg/dL (0.6-1.0) Estimated GFR (Cockcroft-Gault) 89.3 BUN/Creatinine Ratio 19 (6-20) Glucose Level 83 mg/dL (70-99) Calcium Level 8.9 mg/dL (8.5-10.1) Total Bilirubin 0.2 mg/dL (0.2-1.0) Aspartate Amino Transf (AST/SGOT) 55 U/L (15-37) Alanine Aminotransferase (ALT/SGPT) 88 U/L (14-59) Alkaline Phosphatase 77 U/L (46-116) Total Protein 7.6 g/dL (6.4-8.2) Albumin 3.4 g/dL (3.4-5.0) Albumin/Globulin Ratio 0.8 (1.0-1.7) Review of Systems Review of Systems LE weakness LE paresthesia Assessment and Plan Assessmemt and Plan Problems Medical Problems: (1) Intractable neuropathic pain of right lower extremity Status: Acute Assessment: acute right leg pain right nondisplaced proximal fibula fracture right labral tear R trochanteric and hamstring bursitis L3-4 posterior annular tear fibromyalgia obesity, BMI 33 gastroesophageal reflux disease allergies, asthma Plan: Discharge to SNF today Continue Baclofen dose to 20mg po tid Home meds Appreciate subspecialist input Normal diet Pain control Problems: Comment Review of Relevant I have reviewed the following items dalila (where applicable) has been applied. Labs Laboratory Tests Test 06/16/17 04:34 06/17/17 03:30 White Blood Count 10.5 x10^3/uL (4.0-11.0) 9.6 x10^3/uL (4.0-11.0) Red Blood Count 4.20 x10^6/uL (3.50-5.40) 4.45 x10^6/uL (3.50-5.40) Hemoglobin 13.1 g/dL (12.0-15.5) 13.7 g/dL (12.0-15.5) Hematocrit 39.3 % (36.0-47.0) 41.3 % (36.0-47.0) Mean Corpuscular Volume 94 fL (79-100) 93 fL (79-100) Mean Corpuscular Hemoglobin 31 pg (25-35) 31 pg (25-35) Mean Corpuscular Hemoglobin Concent 33 g/dL (31-37) 33 g/dL (31-37) Red Cell Distribution Width 13.1 % (11.5-14.5) 13.1 % (11.5-14.5) Platelet Count 425 x10^3/uL (140-400) 448 x10^3/uL (140-400) Neutrophils (%) (Auto) 29 % (31-73) 35 % (31-73) Lymphocytes (%) (Auto) 50 % (24-48) 47 % (24-48) Monocytes (%) (Auto) 13 % (0-9) 12 % (0-9) Eosinophils (%) (Auto) 7 % (0-3) 6 % (0-3) Basophils (%) (Auto) 1 % (0-3) 1 % (0-3) Neutrophils # (Auto) 3.1 x10^3uL (1.8-7.7) 3.3 x10^3uL (1.8-7.7) Lymphocytes # (Auto) 5.3 x10^3/uL (1.0-4.8) 4.5 x10^3/uL (1.0-4.8) Monocytes # (Auto) 1.3 x10^3/uL (0.0-1.1) 1.1 x10^3/uL (0.0-1.1) Eosinophils # (Auto) 0.7 x10^3/uL (0.0-0.7) 0.6 x10^3/uL (0.0-0.7) Basophils # (Auto) 0.1 x10^3/uL (0.0-0.2) 0.1 x10^3/uL (0.0-0.2) Sodium Level 140 mmol/L (136-145) 141 mmol/L (136-145) Potassium Level 3.9 mmol/L (3.5-5.1) 4.1 mmol/L (3.5-5.1) Chloride Level 102 mmol/L (98-107) 103 mmol/L (98-107) Carbon Dioxide Level 26 mmol/L (21-32) 28 mmol/L (21-32) Anion Gap 12 (6-14) 10 (6-14) Blood Urea Nitrogen 15 mg/dL (7-20) 13 mg/dL (7-20) Creatinine 0.7 mg/dL (0.6-1.0) 0.7 mg/dL (0.6-1.0) Estimated GFR (Cockcroft-Gault) 89.3 89.3 BUN/Creatinine Ratio 21 (6-20) 19 (6-20) Glucose Level 96 mg/dL (70-99) 83 mg/dL (70-99) Calcium Level 8.5 mg/dL (8.5-10.1) 8.9 mg/dL (8.5-10.1) Total Bilirubin 0.2 mg/dL (0.2-1.0) 0.2 mg/dL (0.2-1.0) Aspartate Amino Transf (AST/SGOT) 51 U/L (15-37) 55 U/L (15-37) Alanine Aminotransferase (ALT/SGPT) 84 U/L (14-59) 88 U/L (14-59) Alkaline Phosphatase 75 U/L (46-116) 77 U/L (46-116) Total Protein 6.8 g/dL (6.4-8.2) 7.6 g/dL (6.4-8.2) Albumin 3.3 g/dL (3.4-5.0) 3.4 g/dL (3.4-5.0) Albumin/Globulin Ratio 0.9 (1.0-1.7) 0.8 (1.0-1.7) Laboratory Tests Test 06/17/17 03:30 White Blood Count 9.6 x10^3/uL (4.0-11.0) Red Blood Count 4.45 x10^6/uL (3.50-5.40) Hemoglobin 13.7 g/dL (12.0-15.5) Hematocrit 41.3 % (36.0-47.0) Mean Corpuscular Volume 93 fL (79-100) Mean Corpuscular Hemoglobin 31 pg (25-35) Mean Corpuscular Hemoglobin Concent 33 g/dL (31-37) Red Cell Distribution Width 13.1 % (11.5-14.5) Platelet Count 448 x10^3/uL (140-400) Neutrophils (%) (Auto) 35 % (31-73) Lymphocytes (%) (Auto) 47 % (24-48) Monocytes (%) (Auto) 12 % (0-9) Eosinophils (%) (Auto) 6 % (0-3) Basophils (%) (Auto) 1 % (0-3) Neutrophils # (Auto) 3.3 x10^3uL (1.8-7.7) Lymphocytes # (Auto) 4.5 x10^3/uL (1.0-4.8) Monocytes # (Auto) 1.1 x10^3/uL (0.0-1.1) Eosinophils # (Auto) 0.6 x10^3/uL (0.0-0.7) Basophils # (Auto) 0.1 x10^3/uL (0.0-0.2) Sodium Level 141 mmol/L (136-145) Potassium Level 4.1 mmol/L (3.5-5.1) Chloride Level 103 mmol/L (98-107) Carbon Dioxide Level 28 mmol/L (21-32) Anion Gap 10 (6-14) Blood Urea Nitrogen 13 mg/dL (7-20) Creatinine 0.7 mg/dL (0.6-1.0) Estimated GFR (Cockcroft-Gault) 89.3 BUN/Creatinine Ratio 19 (6-20) Glucose Level 83 mg/dL (70-99) Calcium Level 8.9 mg/dL (8.5-10.1) Total Bilirubin 0.2 mg/dL (0.2-1.0) Aspartate Amino Transf (AST/SGOT) 55 U/L (15-37) Alanine Aminotransferase (ALT/SGPT) 88 U/L (14-59) Alkaline Phosphatase 77 U/L (46-116) Total Protein 7.6 g/dL (6.4-8.2) Albumin 3.4 g/dL (3.4-5.0) Albumin/Globulin Ratio 0.8 (1.0-1.7) Medications Current Medications Hydromorphone HCl (Dilaudid) 1 mg 1X ONCE IV Last administered on 06/04/17 18:36; Start 06/04/17 at 18:30; Stop 06/04/17 at 18:32; Status DC Hydromorphone HCl (Dilaudid) 1 mg 1X ONCE IV Last administered on 06/04/17 19:58; Start 06/04/17 at 20:00; Stop 06/04/17 at 20:01; Status DC Haloperidol Lactate (Haldol) 5 mg 1X ONCE IVP Last administered on 06/05/17 00:39; Start 06/05/17 at 00:15; Stop 06/05/17 at 00:16; Status DC Ondansetron HCl (Zofran) 4 mg PRN Q8HRS PRN IV NAUSEA/VOMITING; Start at 00:00; Stop 06/05/17 at 23:59; Status DC Fentanyl Citrate (Fentanyl 2ml Vial) 50 mcg PRN Q1HR PRN IV PAIN Last administered on 06/05/17 20:44; Start 06/05/17 at 00:00; Stop 06/05/17 at 23 :59; Status DC Acetaminophen (Tylenol) 650 mg PRN Q4HRS PRN PO FEVER Last administered on 10:02; Start 06/05/17 at 00:00; Stop 06/05/17 at 23:59; Status DC Diazepam (Valium) 5 mg 1X ONCE PO Last administered on 06/05/17 18:24; Start 06/05/17 at 14:00; Stop 06/05/17 at 14:01; Status DC Atorvastatin Calcium (Lipitor) 20 mg DAILY PO ; Start 06/06/17 at 09:00; Stop 06/07/17 at 08:54; Status DC Cetirizine HCl (ZyrTEC) 10 mg HS PO Last administered on 06/16/17 21:02; Start 06/05/17 at 21:00 Pseudoephedrine HCl (Sudafed 12-Hour) 120 mg BID PO Last administered on 09:59; Start 06/05/17 at 21:00 Non-Formulary Medication 1 puff PRN Q4HRS PRN INH SHORTNESS OF BREATH; Start 06/05/17 at 16:15; Status UNV Non-Formulary Medication 1 tab DAILY PO ; Start 06/06/17 at 09:00; Status UNV Fluticasone Propionate (Flonase) 2 spray DAILY NS Last administered on 09:03; Start 06/06/17 at 09:00 Non-Formulary Medication 1 tab DAILY PO ; Start 06/06/17 at 09:00; Status UNV Pantoprazole Sodium (Protonix) 40 mg DAILYAC PO Last administered on 09:59; Start 06/06/17 at 07:30 Multivit/ Folic Acid/Iron (Multivitamin ) 1 tab DAILY PO ; Start 06/06/17 at 09:00; Stop 06/07/17 at 08:54; Status DC Famotidine (Pepcid) 20 mg QHS PO Last administered on 06/16/17 21:02; Start 06/05/17 at 21:00 Albuterol Sulfate (Ventolin Neb Soln) 2.5 mg PRN Q6HRS PRN NEB SHORTNESS OF BREATH; Start 06/05/17 at 16:15 Diazepam (Valium) 5 mg 1X ONCE PO Last administered on 06/05/17 18:25; Start 06/05/17 at 18:30; Stop 06/05/17 at 18:31; Status DC Acetaminophen (Tylenol) 650 mg PRN Q6HRS PRN PO HEADACHE Last administered on 06/10/17 11:07; Start 06/06/17 at 03:00 Oxycodone/ Acetaminophen (Percocet 5/325) 1 tab PRN Q4HRS PRN PO PAIN Last administered on 06/08/17 16:55; Start 06/06/17 at 10:15; Stop 06/08/17 at 18 :25; Status DC Fentanyl Citrate (Fentanyl 2ml Vial) 50 mcg PRN Q2HR PRN IV PAIN Last administered on 06/08/17 04:03; Start 06/06/17 at 10:15 Ketorolac Tromethamine (Toradol) 15 mg PRN Q6HRS PRN IV PAIN Last administered on 06/10/17 17:56; Start 06/06/17 at 10:15; Stop 06/11/17 at 10:14; Status DC Atorvastatin Calcium (Lipitor) 20 mg QHS PO Last administered on 06/16/17 21: 02; Start 06/07/17 at 21:00 Multivit/ Folic Acid/Iron (Multivitamin ) 1 tab QHS PO Last administered on 06/16/17 21:02; Start 06/07/17 at 21:00 Diazepam (Valium) 5 mg 1X ONCE PO Last administered on 06/07/17 13:28; Start 06/07/17 at 11:30; Stop 06/07/17 at 11:31; Status DC Azithromycin (Zithromax) 500 mg 1X ONCE PO Last administered on 06/08/17 16: 55; Start 06/08/17 at 15:00; Stop 06/08/17 at 15:01; Status DC Azithromycin (Zithromax) 250 mg DAILY PO Last administered on 06/16/17 09:04 ; Start 06/09/17 at 09:00; Stop 06/16/17 at 18:38; Status DC Lactobacillus Rhamnosus (Culturelle) 1 cap BID PO Last administered on 09:59; Start 06/08/17 at 21:00 Diclofenac Sodium (Voltaren) 1 chantal BID TP Last administered on 06/17/17 10:40 ; Start 06/08/17 at 21:00 Gabapentin (Neurontin) 300 mg TID PO Last administered on 06/17/17 09:59; Start 06/08/17 at 21:00 Oxycodone/ Acetaminophen (Percocet 10/325) 1 tab PRN Q4HRS PRN PO PAIN Last administered on 06/17/17 09:59; Start 06/08/17 at 18:30 Cyclobenzaprine HCl (Flexeril) 10 mg Q6HRS PO ; Start 06/09/17 at 18:00; Stop 06/09/17 at 18:00; Status DC Alprazolam (Xanax) 0.5 mg PRN Q8HRS PRN PO ANXIETY / AGITATION Last administered on 06/10/17 17:55; Start 06/08/17 at 18:30 Baclofen (Lioresal) 10 mg TID PO Last administered on 06/14/17 11:07; Start 06/09/17 at 10:00; Stop 06/14/17 at 13:29; Status DC Enoxaparin Sodium (Lovenox 40mg Syringe) 40 mg Q24H SQ Last administered on 21:02; Start 06/10/17 at 21:00 Baclofen (Lioresal) 20 mg TID PO Last administered on 06/17/17 09:59; Start 06/14/17 at 14:00 Active Scripts Active Reported Vitamins ( Vits W-Ca,Fe,Fa(<1MG)) 1 Each Tablet 1 Tab PO DAILY Sudafed 12-Hour (Pseudoephedrine Hcl) 120 Mg Tablet.er 1 Tab PO BID Atorvastatin Calcium 20 Mg Tablet 1 Tab PO DAILY Ortho-Novum (Norethindrone-Ethinyl Estrad) 1 Each Tablet 1 Tab PO DAILY Flonase Allergy Relief (Fluticasone Propionate) 9.9 Ml [place].susp 2 Sprays NS DAILY Proair Hfa Inhaler (Albuterol Sulfate) 8.5 Gm Hfa.aer.ad 1 Puff INH PRN Q4HRS PRN Prilosec Otc (Omeprazole Magnesium) 20 Mg Tablet.dr 1 Tab PO DAILY Zantac (Ranitidine Hcl) 300 Mg Tablet 1 Tab PO QHS Zyrtec (Cetirizine Hcl) 10 Mg Tablet 10 Mg PO HS Jayshree-D 24 Hour Tablet (Fexofenadine/Pseudoephedrine) 1 Each Tab.er.24h 1 Tab PO DAILY Vitals/I & O Vital Sign - Last 24 Hours 06/16/17 06/16/17 06/16/17 06/16/17 14:32 17:25 18:38 19:50 Temp 98.5 98.1 98.5 98.1 Pulse 105 81 Resp 18 18 B/P (MAP) 115/70 (85) 115/71 (86) Pulse Ox 95 95 95 97 O2 Delivery Room Air Room Air Room Air Room Air 06/16/17 06/16/17 06/16/17 06/17/17 20:00 23:42 23:50 03:00 Temp 98.5 98.5 Pulse 89 Resp 18 16 B/P (MAP) 129/65 (86) Pulse Ox 97 95 O2 Delivery Room Air Room Air Room Air Room Air 06/17/17 06/17/17 07:00 11:00 Temp 98.2 97.8 98.2 97.8 Pulse 97 109 Resp 18 20 B/P (MAP) 133/80 (97) 113/62 (79) Pulse Ox 95 95 O2 Delivery Room Air Room Air Intake and Output 06/16/17 06/16/17 06/17/17 15:00 23:00 07:00 Intake Total 480 ml 1040 ml 0 ml Balance 480 ml 1040 ml 0 ml TAMERA SCHULTZ III DO Jun 17, 2017 11:18
[2017-06-17 15:00] VITALS: BP 125/75
[2017-06-17] MEDS: ALPRAZolam 0.5 MG TABLET PO PRN (18:51)
[2017-06-17 19:53] VITALS: BP 132/78
[2017-06-17] MEDS: FAMOTIDINE 20 MG TABLET. PO SCH (21:38)
[2017-06-17] MEDS: CETIRIZINE HCL 10 MG TABLET. PO SCH (21:38)
[2017-06-17] MEDS: ATORVASTATIN CALCIUM 20 MG TABLET PO SCH (21:38)
[2017-06-17] MEDS: PRENATAL MULTIVITAMIN TABLET. PO SCH (21:38)
[2017-06-17] MEDS: ENOXAPARIN 40 MG/0.4 ML SYRINGE. SQ SCH (21:39)
[2017-06-17 23:10] VITALS: BP 136/81
[2017-06-18 03:14] VITALS: BP 125/82
[2017-06-18] MEDS: PANTOPRAZOLE 40 MG TABLET.DR. PO SCH (06:43)
[2017-06-18 07:00] VITALS: BP 114/72
[2017-06-18] MEDS: FLUTICASONE 50MCG/NASAL SPRAY 16GM BOTTLE. NS SCH (08:32)
[2017-06-18] MEDS: DICLOFENAC SODIUM 1% TOPICAL GEL 100GM TUBE. TP SCH (08:33)
[2017-06-18] MEDS: GABAPENTIN 300 MG CAPSULE. PO SCH ×2 (08:33→14:19)
[2017-06-18] MEDS: LACTOBACILLUS RHAMNOSUS GG 1 CAPSULE. PO SCH (08:33)
[2017-06-18] MEDS: PSEUDOEPHEDRINE ER 120 MG TABLET.ER. PO SCH (08:33)
[2017-06-18] MEDS: BACLOFEN 10 MG TABLET. PO SCH ×2 (08:33→14:19)
--- NOTE | 2017-06-18 09:23 | PDOC ---
PROGRESS NOTES Subjective Subjective No new complaints. Objective Objective Vital Signs Date Time Temp Pulse Resp B/P (MAP) Pulse Ox O2 Delivery O2 Flow Rate FiO2 06/18/17 08:00 Room Air 06/18/17 07:00 98.1 102 18 114/72 (86) 95 98.1 Intake and Output 06/18/17 07:00 Intake Total 120 ml Balance 120 ml Intake Oral 120 ml Physical Exam Physical Exam She is sitting up in bedside chair without cam walker boot on and she continues to protect her right foot and ankle and tenderness to palpation over right foot, ankle,leg and popliteal fossa area and no active dorsiflexion of right big toe and decreased sensory perception over right foot dorsal aspect. Assessment Assessment Problems Medical Problems: (1) Intractable neuropathic pain of right lower extremity Status: Acute Plan Plan of Care To continue present physical and occupational therapy follow up waiting for transfer to SNF or home with home health follow up. Comment Review of Relevant I have reviewed the following items dalila (where applicable) has been applied. Labs Laboratory Tests Test 06/17/17 03:30 White Blood Count 9.6 x10^3/uL (4.0-11.0) Red Blood Count 4.45 x10^6/uL (3.50-5.40) Hemoglobin 13.7 g/dL (12.0-15.5) Hematocrit 41.3 % (36.0-47.0) Mean Corpuscular Volume 93 fL (79-100) Mean Corpuscular Hemoglobin 31 pg (25-35) Mean Corpuscular Hemoglobin Concent 33 g/dL (31-37) Red Cell Distribution Width 13.1 % (11.5-14.5) Platelet Count 448 x10^3/uL (140-400) Neutrophils (%) (Auto) 35 % (31-73) Lymphocytes (%) (Auto) 47 % (24-48) Monocytes (%) (Auto) 12 % (0-9) Eosinophils (%) (Auto) 6 % (0-3) Basophils (%) (Auto) 1 % (0-3) Neutrophils # (Auto) 3.3 x10^3uL (1.8-7.7) Lymphocytes # (Auto) 4.5 x10^3/uL (1.0-4.8) Monocytes # (Auto) 1.1 x10^3/uL (0.0-1.1) Eosinophils # (Auto) 0.6 x10^3/uL (0.0-0.7) Basophils # (Auto) 0.1 x10^3/uL (0.0-0.2) Sodium Level 141 mmol/L (136-145) Potassium Level 4.1 mmol/L (3.5-5.1) Chloride Level 103 mmol/L (98-107) Carbon Dioxide Level 28 mmol/L (21-32) Anion Gap 10 (6-14) Blood Urea Nitrogen 13 mg/dL (7-20) Creatinine 0.7 mg/dL (0.6-1.0) Estimated GFR (Cockcroft-Gault) 89.3 BUN/Creatinine Ratio 19 (6-20) Glucose Level 83 mg/dL (70-99) Calcium Level 8.9 mg/dL (8.5-10.1) Total Bilirubin 0.2 mg/dL (0.2-1.0) Aspartate Amino Transf (AST/SGOT) 55 U/L (15-37) Alanine Aminotransferase (ALT/SGPT) 88 U/L (14-59) Alkaline Phosphatase 77 U/L (46-116) Total Protein 7.6 g/dL (6.4-8.2) Albumin 3.4 g/dL (3.4-5.0) Albumin/Globulin Ratio 0.8 (1.0-1.7) Medications Current Medications Hydromorphone HCl (Dilaudid) 1 mg 1X ONCE IV Last administered on 06/04/17 18:36; Start 06/04/17 at 18:30; Stop 06/04/17 at 18:32; Status DC Hydromorphone HCl (Dilaudid) 1 mg 1X ONCE IV Last administered on 06/04/17 19:58; Start 06/04/17 at 20:00; Stop 06/04/17 at 20:01; Status DC Haloperidol Lactate (Haldol) 5 mg 1X ONCE IVP Last administered on 06/05/17 00:39; Start 06/05/17 at 00:15; Stop 06/05/17 at 00:16; Status DC Ondansetron HCl (Zofran) 4 mg PRN Q8HRS PRN IV NAUSEA/VOMITING; Start at 00:00; Stop 06/05/17 at 23:59; Status DC Fentanyl Citrate (Fentanyl 2ml Vial) 50 mcg PRN Q1HR PRN IV PAIN Last administered on 06/05/17 20:44; Start 06/05/17 at 00:00; Stop 06/05/17 at 23 :59; Status DC Acetaminophen (Tylenol) 650 mg PRN Q4HRS PRN PO FEVER Last administered on 10:02; Start 06/05/17 at 00:00; Stop 06/05/17 at 23:59; Status DC Diazepam (Valium) 5 mg 1X ONCE PO Last administered on 06/05/17 18:24; Start 06/05/17 at 14:00; Stop 06/05/17 at 14:01; Status DC Atorvastatin Calcium (Lipitor) 20 mg DAILY PO ; Start 06/06/17 at 09:00; Stop 06/07/17 at 08:54; Status DC Cetirizine HCl (ZyrTEC) 10 mg HS PO Last administered on 06/17/17 21:38; Start 06/05/17 at 21:00 Pseudoephedrine HCl (Sudafed 12-Hour) 120 mg BID PO Last administered on 08:33; Start 06/05/17 at 21:00 Non-Formulary Medication 1 puff PRN Q4HRS PRN INH SHORTNESS OF BREATH; Start 06/05/17 at 16:15; Status UNV Non-Formulary Medication 1 tab DAILY PO ; Start 06/06/17 at 09:00; Status UNV Fluticasone Propionate (Flonase) 2 spray DAILY NS Last administered on 08:32; Start 06/06/17 at 09:00 Non-Formulary Medication 1 tab DAILY PO ; Start 06/06/17 at 09:00; Status UNV Pantoprazole Sodium (Protonix) 40 mg DAILYAC PO Last administered on 06:43; Start 06/06/17 at 07:30 Multivit/ Folic Acid/Iron (Multivitamin ) 1 tab DAILY PO ; Start 06/06/17 at 09:00; Stop 06/07/17 at 08:54; Status DC Famotidine (Pepcid) 20 mg QHS PO Last administered on 06/17/17 21:38; Start 06/05/17 at 21:00 Albuterol Sulfate (Ventolin Neb Soln) 2.5 mg PRN Q6HRS PRN NEB SHORTNESS OF BREATH; Start 06/05/17 at 16:15 Diazepam (Valium) 5 mg 1X ONCE PO Last administered on 06/05/17 18:25; Start 06/05/17 at 18:30; Stop 06/05/17 at 18:31; Status DC Acetaminophen (Tylenol) 650 mg PRN Q6HRS PRN PO HEADACHE Last administered on 06/10/17 11:07; Start 06/06/17 at 03:00 Oxycodone/ Acetaminophen (Percocet 5/325) 1 tab PRN Q4HRS PRN PO PAIN Last administered on 06/08/17 16:55; Start 06/06/17 at 10:15; Stop 06/08/17 at 18 :25; Status DC Fentanyl Citrate (Fentanyl 2ml Vial) 50 mcg PRN Q2HR PRN IV PAIN Last administered on 06/08/17 04:03; Start 06/06/17 at 10:15 Ketorolac Tromethamine (Toradol) 15 mg PRN Q6HRS PRN IV PAIN Last administered on 06/10/17 17:56; Start 06/06/17 at 10:15; Stop 06/11/17 at 10:14; Status DC Atorvastatin Calcium (Lipitor) 20 mg QHS PO Last administered on 06/17/17 21: 38; Start 06/07/17 at 21:00 Multivit/ Folic Acid/Iron (Multivitamin ) 1 tab QHS PO Last administered on 06/17/17 21:38; Start 06/07/17 at 21:00 Diazepam (Valium) 5 mg 1X ONCE PO Last administered on 06/07/17 13:28; Start 06/07/17 at 11:30; Stop 06/07/17 at 11:31; Status DC Azithromycin (Zithromax) 500 mg 1X ONCE PO Last administered on 06/08/17 16: 55; Start 06/08/17 at 15:00; Stop 06/08/17 at 15:01; Status DC Azithromycin (Zithromax) 250 mg DAILY PO Last administered on 06/16/17 09:04 ; Start 06/09/17 at 09:00; Stop 06/16/17 at 18:38; Status DC Lactobacillus Rhamnosus (Culturelle) 1 cap BID PO Last administered on 08:33; Start 06/08/17 at 21:00 Diclofenac Sodium (Voltaren) 1 chantal BID TP Last administered on 06/18/17 08:33 ; Start 06/08/17 at 21:00 Gabapentin (Neurontin) 300 mg TID PO Last administered on 06/18/17 08:33; Start 06/08/17 at 21:00 Oxycodone/ Acetaminophen (Percocet 10/325) 1 tab PRN Q4HRS PRN PO PAIN Last administered on 06/17/17 18:51; Start 06/08/17 at 18:30 Cyclobenzaprine HCl (Flexeril) 10 mg Q6HRS PO ; Start 06/09/17 at 18:00; Stop 06/09/17 at 18:00; Status DC Alprazolam (Xanax) 0.5 mg PRN Q8HRS PRN PO ANXIETY / AGITATION Last administered on 06/17/17 18:51; Start 06/08/17 at 18:30 Baclofen (Lioresal) 10 mg TID PO Last administered on 06/14/17 11:07; Start 06/09/17 at 10:00; Stop 06/14/17 at 13:29; Status DC Enoxaparin Sodium (Lovenox 40mg Syringe) 40 mg Q24H SQ Last administered on 21:39; Start 06/10/17 at 21:00 Baclofen (Lioresal) 20 mg TID PO Last administered on 06/18/17 08:33; Start 06/14/17 at 14:00 Active Scripts Active Reported Vitamins ( Vits W-Ca,Fe,Fa(<1MG)) 1 Each Tablet 1 Tab PO DAILY Sudafed 12-Hour (Pseudoephedrine Hcl) 120 Mg Tablet.er 1 Tab PO BID Atorvastatin Calcium 20 Mg Tablet 1 Tab PO DAILY Ortho-Novum (Norethindrone-Ethinyl Estrad) 1 Each Tablet 1 Tab PO DAILY Flonase Allergy Relief (Fluticasone Propionate) 9.9 Ml [place].susp 2 Sprays NS DAILY Proair Hfa Inhaler (Albuterol Sulfate) 8.5 Gm Hfa.aer.ad 1 Puff INH PRN Q4HRS PRN Prilosec Otc (Omeprazole Magnesium) 20 Mg Tablet.dr 1 Tab PO DAILY Zantac (Ranitidine Hcl) 300 Mg Tablet 1 Tab PO QHS Zyrtec (Cetirizine Hcl) 10 Mg Tablet 10 Mg PO HS Jayshree-D 24 Hour Tablet (Fexofenadine/Pseudoephedrine) 1 Each Tab.er.24h 1 Tab PO DAILY Vitals/I & O Vital Sign - Last 24 Hours 06/17/17 06/17/17 06/17/17 06/17/17 11:00 15:00 19:50 19:50 Temp 97.8 97.5 97.8 97.5 Pulse 109 107 Resp 20 20 16 B/P (MAP) 113/62 (79) 125/75 (92) Pulse Ox 95 92 97 O2 Delivery Room Air Room Air Room Air Room Air 06/17/17 06/17/17 06/18/17 06/18/17 19:53 23:10 03:14 07:00 Temp 98.0 98.5 98.1 98.0 98.5 98.1 Pulse 98 93 100 102 Resp 20 20 20 18 B/P (MAP) 132/78 (96) 136/81 (99) 125/82 (96) 114/72 (86) Pulse Ox 97 97 95 95 O2 Delivery Room Air Room Air Room Air Room Air 06/18/17 08:00 O2 Delivery Room Air Intake and Output 06/17/17 06/17/17 06/18/17 15:00 23:00 07:00 Intake Total 120 ml 0 ml Balance 120 ml 0 ml KIKI KENNY MD Jun 18, 2017 09:23
--- NOTE | 2017-06-18 10:14 | PDOC ---
PROGRESS NOTES Chief Complaint Chief Complaint acute right leg pain right nondisplaced proximal fibula fracture right labral tear R trochanteric and hamstring bursitis L3-4 posterior annular tear fibromyalgia obesity, BMI 33 gastroesophageal reflux disease allergies, asthma History of Present Illness History of Present Illness Pt seen and examined at bedside, No acute overnight events. Pt was unable to be discharged to SNF yesterday due to insurance denial. Will continue to work with case management for disposition and discharge today. Vitals Vitals Vital Signs Date Time Temp Pulse Resp B/P (MAP) Pulse Ox O2 Delivery O2 Flow Rate FiO2 06/18/17 08:00 Room Air 06/18/17 07:00 98.1 102 18 114/72 (86) 95 98.1 Physical Exam General: Alert, Oriented X3, Cooperative, mild distress Heart: Regular rate, Normal S1, No murmurs Lungs: Clear Abdomen: Soft Extremities: No clubbing, No cyanosis, No edema, Normal pulses, Other (R LE knee brace and ankle brace in place) Skin: No rashes, No breakdown, No significant lesion Review of Systems Review of Systems LE numbness Fatigue Assessment and Plan Assessmemt and Plan Problems Medical Problems: (1) 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 Labs Laboratory Tests Test 06/17/17 03:30 White Blood Count 9.6 x10^3/uL (4.0-11.0) Red Blood Count 4.45 x10^6/uL (3.50-5.40) Hemoglobin 13.7 g/dL (12.0-15.5) Hematocrit 41.3 % (36.0-47.0) Mean Corpuscular Volume 93 fL (79-100) Mean Corpuscular Hemoglobin 31 pg (25-35) Mean Corpuscular Hemoglobin Concent 33 g/dL (31-37) Red Cell Distribution Width 13.1 % (11.5-14.5) Platelet Count 448 x10^3/uL (140-400) Neutrophils (%) (Auto) 35 % (31-73) Lymphocytes (%) (Auto) 47 % (24-48) Monocytes (%) (Auto) 12 % (0-9) Eosinophils (%) (Auto) 6 % (0-3) Basophils (%) (Auto) 1 % (0-3) Neutrophils # (Auto) 3.3 x10^3uL (1.8-7.7) Lymphocytes # (Auto) 4.5 x10^3/uL (1.0-4.8) Monocytes # (Auto) 1.1 x10^3/uL (0.0-1.1) Eosinophils # (Auto) 0.6 x10^3/uL (0.0-0.7) Basophils # (Auto) 0.1 x10^3/uL (0.0-0.2) Sodium Level 141 mmol/L (136-145) Potassium Level 4.1 mmol/L (3.5-5.1) Chloride Level 103 mmol/L (98-107) Carbon Dioxide Level 28 mmol/L (21-32) Anion Gap 10 (6-14) Blood Urea Nitrogen 13 mg/dL (7-20) Creatinine 0.7 mg/dL (0.6-1.0) Estimated GFR (Cockcroft-Gault) 89.3 BUN/Creatinine Ratio 19 (6-20) Glucose Level 83 mg/dL (70-99) Calcium Level 8.9 mg/dL (8.5-10.1) Total Bilirubin 0.2 mg/dL (0.2-1.0) Aspartate Amino Transf (AST/SGOT) 55 U/L (15-37) Alanine Aminotransferase (ALT/SGPT) 88 U/L (14-59) Alkaline Phosphatase 77 U/L (46-116) Total Protein 7.6 g/dL (6.4-8.2) Albumin 3.4 g/dL (3.4-5.0) Albumin/Globulin Ratio 0.8 (1.0-1.7) Medications Current Medications Hydromorphone HCl (Dilaudid) 1 mg 1X ONCE IV Last administered on 06/04/17t 18:36; Start 06/04/17 at 18:30; Stop 06/04/17 at 18:32; Status DC Hydromorphone HCl (Dilaudid) 1 mg 1X ONCE IV Last administered on 06/04/17 19:58; Start 06/04/17 at 20:00; Stop 06/04/17 at 20:01; Status DC Haloperidol Lactate (Haldol) 5 mg 1X ONCE IVP Last administered on 06/05/17 00:39; Start 06/05/17 at 00:15; Stop 06/05/17 at 00:16; Status DC Ondansetron HCl (Zofran) 4 mg PRN Q8HRS PRN IV NAUSEA/VOMITING; Start at 00:00; Stop 06/05/17 at 23:59; Status DC Fentanyl Citrate (Fentanyl 2ml Vial) 50 mcg PRN Q1HR PRN IV PAIN Last administered on 06/05/17 20:44; Start 06/05/17 at 00:00; Stop 06/05/17 at 23 :59; Status DC Acetaminophen (Tylenol) 650 mg PRN Q4HRS PRN PO FEVER Last administered on 10:02; Start 06/05/17 at 00:00; Stop 06/05/17 at 23:59; Status DC Diazepam (Valium) 5 mg 1X ONCE PO Last administered on 06/05/17 18:24; Start 06/05/17 at 14:00; Stop 06/05/17 at 14:01; Status DC Atorvastatin Calcium (Lipitor) 20 mg DAILY PO ; Start 06/06/17 at 09:00; Stop 06/07/17 at 08:54; Status DC Cetirizine HCl (ZyrTEC) 10 mg HS PO Last administered on 06/17/17 21:38; Start 06/05/17 at 21:00 Pseudoephedrine HCl (Sudafed 12-Hour) 120 mg BID PO Last administered on 08:33; Start 06/05/17 at 21:00 Non-Formulary Medication 1 puff PRN Q4HRS PRN INH SHORTNESS OF BREATH; Start 06/05/17 at 16:15; Status UNV Non-Formulary Medication 1 tab DAILY PO ; Start 06/06/17 at 09:00; Status UNV Fluticasone Propionate (Flonase) 2 spray DAILY NS Last administered on 08:32; Start 06/06/17 at 09:00 Non-Formulary Medication 1 tab DAILY PO ; Start 06/06/17 at 09:00; Status UNV Pantoprazole Sodium (Protonix) 40 mg DAILYAC PO Last administered on 06:43; Start 06/06/17 at 07:30 Multivit/ Folic Acid/Iron (Multivitamin ) 1 tab DAILY PO ; Start 06/06/17 at 09:00; Stop 06/07/17 at 08:54; Status DC Famotidine (Pepcid) 20 mg QHS PO Last administered on 06/17/17 21:38; Start 06/05/17 at 21:00 Albuterol Sulfate (Ventolin Neb Soln) 2.5 mg PRN Q6HRS PRN NEB SHORTNESS OF BREATH; Start 06/05/17 at 16:15 Diazepam (Valium) 5 mg 1X ONCE PO Last administered on 06/05/17 18:25; Start 06/05/17 at 18:30; Stop 06/05/17 at 18:31; Status DC Acetaminophen (Tylenol) 650 mg PRN Q6HRS PRN PO HEADACHE Last administered on 06/10/17 11:07; Start 06/06/17 at 03:00 Oxycodone/ Acetaminophen (Percocet 5/325) 1 tab PRN Q4HRS PRN PO PAIN Last administered on 06/08/17 16:55; Start 06/06/17 at 10:15; Stop 06/08/17 at 18 :25; Status DC Fentanyl Citrate (Fentanyl 2ml Vial) 50 mcg PRN Q2HR PRN IV PAIN Last administered on 06/08/17 04:03; Start 06/06/17 at 10:15 Ketorolac Tromethamine (Toradol) 15 mg PRN Q6HRS PRN IV PAIN Last administered on 06/10/17 17:56; Start 06/06/17 at 10:15; Stop 06/11/17 at 10:14; Status DC Atorvastatin Calcium (Lipitor) 20 mg QHS PO Last administered on 06/17/17 21: 38; Start 06/07/17 at 21:00 Multivit/ Folic Acid/Iron (Multivitamin ) 1 tab QHS PO Last administered on 06/17/17 21:38; Start 06/07/17 at 21:00 Diazepam (Valium) 5 mg 1X ONCE PO Last administered on 06/07/17 13:28; Start 06/07/17 at 11:30; Stop 06/07/17 at 11:31; Status DC Azithromycin (Zithromax) 500 mg 1X ONCE PO Last administered on 06/08/17 16: 55; Start 06/08/17 at 15:00; Stop 06/08/17 at 15:01; Status DC Azithromycin (Zithromax) 250 mg DAILY PO Last administered on 06/16/17 09:04 ; Start 06/09/17 at 09:00; Stop 06/16/17 at 18:38; Status DC Lactobacillus Rhamnosus (Culturelle) 1 cap BID PO Last administered on 08:33; Start 06/08/17 at 21:00 Diclofenac Sodium (Voltaren) 1 chantal BID TP Last administered on 06/18/17 08:33 ; Start 06/08/17 at 21:00 Gabapentin (Neurontin) 300 mg TID PO Last administered on 06/18/17 08:33; Start 06/08/17 at 21:00 Oxycodone/ Acetaminophen (Percocet 10/325) 1 tab PRN Q4HRS PRN PO PAIN Last administered on 06/17/17 18:51; Start 06/08/17 at 18:30 Cyclobenzaprine HCl (Flexeril) 10 mg Q6HRS PO ; Start 06/09/17 at 18:00; Stop 06/09/17 at 18:00; Status DC Alprazolam (Xanax) 0.5 mg PRN Q8HRS PRN PO ANXIETY / AGITATION Last administered on 06/17/17 18:51; Start 06/08/17 at 18:30 Baclofen (Lioresal) 10 mg TID PO Last administered on 06/14/17 11:07; Start 06/09/17 at 10:00; Stop 06/14/17 at 13:29; Status DC Enoxaparin Sodium (Lovenox 40mg Syringe) 40 mg Q24H SQ Last administered on 21:39; Start 06/10/17 at 21:00 Baclofen (Lioresal) 20 mg TID PO Last administered on 06/18/17 08:33; Start 06/14/17 at 14:00 Active Scripts Active Reported Vitamins ( Vits W-Ca,Fe,Fa(<1MG)) 1 Each Tablet 1 Tab PO DAILY Sudafed 12-Hour (Pseudoephedrine Hcl) 120 Mg Tablet.er 1 Tab PO BID Atorvastatin Calcium 20 Mg Tablet 1 Tab PO DAILY Ortho-Novum (Norethindrone-Ethinyl Estrad) 1 Each Tablet 1 Tab PO DAILY Flonase Allergy Relief (Fluticasone Propionate) 9.9 Ml [place].susp 2 Sprays NS DAILY Proair Hfa Inhaler (Albuterol Sulfate) 8.5 Gm Hfa.aer.ad 1 Puff INH PRN Q4HRS PRN Prilosec Otc (Omeprazole Magnesium) 20 Mg Tablet.dr 1 Tab PO DAILY Zantac (Ranitidine Hcl) 300 Mg Tablet 1 Tab PO QHS Zyrtec (Cetirizine Hcl) 10 Mg Tablet 10 Mg PO HS Jayshree-D 24 Hour Tablet (Fexofenadine/Pseudoephedrine) 1 Each Tab.er.24h 1 Tab PO DAILY Vitals/I & O Vital Sign - Last 24 Hours 06/17/17 06/17/17 06/17/17 06/17/17 11:00 15:00 19:50 19:50 Temp 97.8 97.5 97.8 97.5 Pulse 109 107 Resp 20 20 16 B/P (MAP) 113/62 (79) 125/75 (92) Pulse Ox 95 92 97 O2 Delivery Room Air Room Air Room Air Room Air 06/17/17 06/17/17 06/18/17 06/18/17 19:53 23:10 03:14 07:00 Temp 98.0 98.5 98.1 98.0 98.5 98.1 Pulse 98 93 100 102 Resp 20 20 20 18 B/P (MAP) 132/78 (96) 136/81 (99) 125/82 (96) 114/72 (86) Pulse Ox 97 97 95 95 O2 Delivery Room Air Room Air Room Air Room Air 06/18/17 08:00 O2 Delivery Room Air Intake and Output 06/17/17 06/17/17 06/18/17 15:00 23:00 07:00 Intake Total 120 ml 0 ml Balance 120 ml 0 ml TAMERA SCHULTZ III DO Jun 18, 2017 10:13
[2017-06-18 11:00] VITALS: BP 110/77
== END 2017-06-18 18:22 | disposition home health service (06) | DRG 543 ==
LOC: ER 17:58 → 6 SOUTH 23:46
PROVIDERS: ADMIT Internal Medicine Hematology & Oncology; ATTEND Internal Medicine Hematology & Oncology
DX: M84.463A Pathological fracture, right fibula, initial encounter for fracture (principal); E44.0 Moderate protein-calorie malnutrition; S82.831A Other fracture of upper and lower end of right fibula, initial encounter for closed fracture; G62.9 Polyneuropathy, unspecified; E66.9 Obesity, unspecified; K21.9 Gastro-esophageal reflux disease without esophagitis; M54.10 Radiculopathy, site unspecified; Z68.33 Body mass index [BMI] 33.0-33.9, adult; E78.1 Pure hyperglyceridemia; E78.5 Hyperlipidemia, unspecified; F40.240 Claustrophobia; G47.33 Obstructive sleep apnea (adult) (pediatric); J45.909 Unspecified asthma, uncomplicated; M77.9 Enthesopathy, unspecified; M79.7 Fibromyalgia; S83.91XA Sprain of unspecified site of right knee, initial encounter; E78.00 Pure hypercholesterolemia, unspecified; S99.911A Unspecified injury of right ankle, initial encounter; S99.921A Unspecified injury of right foot, initial encounter; X50.1XXA Overexertion from prolonged static or awkward postures, initial encounter; Y93.89 Activity, other specified; Y92.89 Other specified places as the place of occurrence of the external cause; Y99.8 Other external cause status; Z83.3 Family history of diabetes mellitus; Z90.81 Acquired absence of spleen; Z88.1 Allergy status to other antibiotic agents; Z88.5 Allergy status to narcotic agent; Z88.2 Allergy status to sulfonamides; Z88.8 Allergy status to other drugs, medicaments and biological substances; Z80.9 Family history of malignant neoplasm, unspecified
CPT/HCPCS: 36415; 72148; 72192; 72195; 73502; 73560; 73610; 73700; 80048; 80053; 85025; 93971; 94760; 96374; 96375; 96376; J1170; J1630; J1650; J1885; J3010; Q0144; 97116; 97530; 97535; 99285-25